=== PATIENT | male | born 1950 | race African-American/Black ===

== ENCOUNTER 2016-12-10 08:50 | Day surgery (SDC) | payer MEDICARE, OTHER ==
[2016-12-10 09:46] LABS: PARTIAL THROMBOPLASTIN TIME 29.7 SEC (23.5-35.8); PROTHROMBIN TIME 13.6 SEC (11.4-15.4)
[2016-12-10 09:48] LABS: HEMOGLOBIN 11.2 g/dL (13.5-17.0); HGB HCT DIFFERENCE 0.6; MEAN CORPUSCULAR HEMOGLOBIN 28.5 pg (27.0-33.4); MEAN CORPUSCULAR HGB CONC 33.8 g/dL (32.0-36.0); MEAN CORPUSCULAR VOLUME 84 fl (80-97); RED BLOOD COUNT 3.91 10^6/uL (4.35-5.55); RED CELL DISTRIBUTION WIDTH 16.2 % (11.5-14.0); WHITE BLOOD COUNT 13.5 10^3/uL (4.0-10.5)
[2016-12-10 09:51] LABS: ANION GAP 18 (5-19); CARBON DIOXIDE 26 mmol/L (22-30); CHLORIDE 100 mmol/L (98-107); GLUCOSE 139 mg/dL (75-110); SODIUM 144.2 mmol/L (137-145)
[2016-12-10 09:52] LABS: BLOOD UREA NITROGEN 45 mg/dL (7-20); CALCIUM 8.6 mg/dL (8.4-10.2); CREATININE RESULT 9.27 mg/dL (0.52-1.25)
[2016-12-10] MEDS ORDERED: OXYCODONE-ACETAMINOPHEN 5-325 MG TABLET ONE (10:03)
[2016-12-10] MEDS ORDERED: DIAZEPAM 5 MG TABLET ONE (10:04)
[2016-12-10 10:32] LABS: ANISOCYTOSIS 1+; BASOPHILS % (MANUAL) 0 % (0-2); EOSINOPHILS % (MANUAL) 0 % (0-6); HYPOCHROMASIA SLIGHT; LYMPHOCYTES % (MANUAL) 8 % (13-45); OVALOCYTES 1+; POIKILOCYTOSIS 1+; POLYCHROMASIA SLIGHT; TOTAL CELLS COUNTED 100
--- NOTE | 2016-12-10 10:48 | PDOC H&P ---
General Chief Complaint: The patient is admitted for intervention in his left forearm arteriovenous fistula, cephalic into radial. High KT/V has been noted also difficulty getting into the fistula as his tissues are very hard. The patient has noted that the fistula is softer than it usually is. - Current Medications/Allergies Home Medications: Amlodipine Besylate [Norvasc 10 mg Tablet] 5 mg PO DAILY 09/24/12 Aspirin [Aspirin 81 mg Chewable Tablet] 81 mg PO DAILY 09/24/12 Atorvastatin Calcium [Lipitor 10 mg Tablet] 10 mg PO Q48H 09/24/12 Cholecalciferol (Vitamin D3) [Vitamin D3] 5,000 unit PO DAILY 09/24/12 Esomeprazole Mag Trihydrate [Nexium] 40 mg PO DAILY 09/24/12 Ezetimibe [Zetia 10 mg Tablet] 10 mg PO DAILY 09/24/12 Lisinopril [Prinivil 5 mg Tablet] 2.5 mg PO DAILY 09/24/12 Metoprolol Tartrate [Lopressor 50 mg Tablet] 50 mg PO Q12H 09/24/12 Sitagliptin Phosphate [Januvia 50 mg Tablet] 25 mg PO DAILY 09/24/12 Cortisone Tape 1 dose TOP DAILY PRN 01/01/15 Desoximetasone [Topicort] 1 dose TOP ASDIR PRN 01/01/15 Methyl Salicylate/Menth/Camph [Salonpas Patch] 1 dose TOP ASDIR PRN 01/01/15 Simethicone [Demetria-[place]] 1 tab PO ASDIR PRN 01/01/15 Docusate Sodium [Colace] 100 mg PO DAILY 03/07/15 Furosemide [Lasix 40 mg Tablet] 40 mg PO BID 03/07/15 Calcium Acetate [Phoslo 667 mg Capsule] 3 tab PO MEALS 04/30/15 Diphenhydramine HCl [Benadryl 25 mg Capsule] 50 mg PO ASDIR PRN 11/12/15 Prednisone 20 mg PO ASDIR PRN 11/12/15 Pregabalin [Lyrica 50 mg Capsule] 50 mg PO 12/10/16 Allergies/Adverse Reactions: iodine [Iodine] Allergy (Severe, Verified 12/10/16 09:11) hives/skin hot niacin [Niacin] Allergy (Severe, Verified 12/10/16 09:11) flushed Penicillins Allergy (Severe, Verified 12/10/16 09:11) rash Ybpolnv-Fpb-Jpl Reductase Inhibitor Allergy (Severe, Verified 12/10/16 09:11) muscle pain,elevated enzymes contrast dye Allergy (Mild, Uncoded 12/10/16 09:11) Hives Past Medical History Cardiac Medical History: Reports: Coronary Artery Disease, Hypertension - tx since 1997 Denies: Myocardial Infarction Pulmonary Medical History: Denies: Asthma, Bronchitis, Chronic Obstructive Pulmonary Disease (COPD), Pneumonia Neurological Medical History: Reports: Seizures - when on dialysis pt states staff tells him has shaking Endocrine Medical History: Reports: Diabetes Mellitus Type 2 GI Medical History: Reports: Gastroesophageal Reflux Disease Musculoskeltal Medical History: Reports: Arthritis - RA ,psoriatic Hematology: Reports: Anemia Past Surgical History Past Surgical History: Reports: Cardiac Catheterization, Orthopedic Surgery - CARPAL TUNNEL, TRIGGER FINGER, Vascular Surgery - L LOWER ARM SHUNT Denies: Pacemaker Family History Family History: Reviewed & Not Pertinent Parental Family History Reviewed: No Children Family History Reviewed: No Sibling(s) Family History Reviewed.: No Social History Smoking Status: Never Smoker Hx Recreational Drug Use: No Hx Prescription Drug Abuse: No Physical Exam Vital Signs: Temp Pulse Resp BP Pulse Ox 98.3 F 72 16 154/87 H 98 12/10/16 09:30 12/10/16 09:30 12/10/16 09:30 12/10/16 09:30 12/10/16 09:30 Intake & Output 12/09/16 12/10/16 12/11/16 06:59 06:59 06:59 Weight 105.687 kg Additional comments: Constitutional: A well-developed well-nourished -[place] gentleman moderately increased body mass index. No acute distress. Eyes: Mucous membranes pink and moist, sclerae anicteric, pupils react normally. Respiratory: No shortness of breath or wheezing. Breath sounds are normal and equal. Cardiac: Heart sounds normal, no murmurs, no increased JVP. Peripheral edema. Extremities: Upper extremities shows normal range of movement and pulses. The left forearm has a transposed cephalic to radial fistula. Bruit normal. Soft to palpation. Psychiatric: judgment, memory, insight seem normal. Mood is normal, appropriate and pleasant. Impression/Plan Impression: #1 malfunctioning AV fistula, left cephalic to radial. #2 end-stage renal disease on hemodialysis. #3 coronary artery disease. #4 diabetes mellitus type II. #5 hypertension. Plan: In this patient with a sherrie left forearm fistula, intervention is indicated in order to optimize function. The goal is long-term use of this fistula. The procedure, its risks, benefits, expected outcome alternatives were discussed with the patient is and his . They're agreeable. The intervention is angiogram possible angioplasty possible PermCath insertion.
[2016-12-10] MEDS ORDERED: HEPARIN SOD (PORCINE) 5,000 UNIT/ML 1 ML SYRINGE ONE (10:55)
[2016-12-10] MEDS ORDERED: MIDAZOLAM 2 MG/2 ML INJ ONE (11:26)
[2016-12-10] MEDS ORDERED: FENTANYL CITRATE INJ/PF 100 MCG/2 ML AMPUL ONE (11:27)
--- NOTE | 2016-12-10 11:41 | Operative Report ---
Operative Report DATE OF SURGERY: 12/10/16 PREOPERATIVE DIAGNOSIS: #1 malfunctioning AV fistula, left cephalic to radial. #2 end-stage renal disease on hemodialysis. #3 coronary artery disease. #4 diabetes mellitus type II. #5 hypertension. POSTOPERATIVE DIAGNOSIS: #1 malfunctioning AV fistula, left cephalic to radial. #2 end-stage renal disease on hemodialysis. #3 coronary artery disease. #4 diabetes mellitus type II. #5 hypertension. OPERATION: #1 ultrasound guided needle access into fistula. #2 angioplasty in fistula. #3 angiogram and interpretation. SURGEON: DAYA BUCK 1ST VOLCANOLOGY TEACHER: none ANESTHESIA: Moderate Sedation TISSUE REMOVED OR ALTERED: Not applicable COMPLICATIONS: None ESTIMATED BLOOD LOSS: 5 mL. INTRAOPERATIVE FINDINGS: Of a well-founded left forearm transposed cephalic into radial fistula. Pulsatile in the first 4 cm with an intervening soft area aand then a dilated but soft target area. Clinically consistent with stenosis at about 4 cm from the anastomosis. The angiogram was consistent with this with an area of stenosis about 80% of the adjacent lumen. Corrected with perhaps a 5% residual stenosis. For a distance of about a centimeter. Hardcopy documentation preserved. PROCEDURE: PROCEDURE: After verifying the procedure and having obtained informed consent, the patient's left arm and forearm were prepared with Chlorhexidine and draped out with sterile linen. Local anesthesia infiltrated. Percutaneous access into the fistula ,[retrograde], obtained about [20 cm] from the arteriovenous anastomosis using a micro puncture needle followed by micro puncture wire and then a micro puncture catheter. This was done on ultrasound guidance using real-time access into the vein. Ultrasound was also used to size the vein. Angiogram demonstrated the aforementioned findings. Angioplasty was elected. A 0.035 [place] wire was inserted, and over this, a 6 [place] short introducer was placed, this was followed by a 6 mm angioplasty balloon . Angioplasty was now done over the culprit segment. This was done very carefully and in the up to 18 alvaro sustained for 2 minutes. Completion angiogram demonstrated [satisfactory result]. The instrumentation was now withdrawn over moderate pressure for 10 minutes. Dressings applied, procedure concluded. Exposure time: 0.2 minutes Radiation: 2 joseline per centimeter squared Contrast: 25 mL of Isovue-M 300 low osmolality. DICTATING PHYSICIAN: DAYA BUCK M.D. cc: DAYA BUCK M.D. ([id number]) >>
--- NOTE | 2016-12-10 11:44 | PDOC DISCHARGE SUMMARY ---
Discharge Summary (SDC) - Discharge Final Diagnosis: #1 malfunctioning AV fistula, left cephalic to radial. #2 end-stage renal disease on hemodialysis. #3 coronary artery disease. #4 diabetes mellitus type II. #5 hypertension. Date of Surgery: 12/10/16 Discharge Date: 12/10/16 Condition: Good Treatment or Instructions: #1 discharge patient home after achieving ASU criteria. #2 continue medications per medication reconciliation sheet. #3 follow-up in office by appointment in about 1 month, call for appointment. #4 dressing to be left on until removed in dialysis #5 continue scheduled hemodialysis. #6 may shower starting in 48 hours. Discharge Diet: As Tolerated Respiratory Treatments at Home: Deep Breathing/Coughing Discharge Activity: Activity As Tolerated Report the Following to Your Physician Immediately: Increased Soreness
[2016-12-10 12:55] VITALS: BP 139/81
--- NOTE | 2016-12-10 13:44 | EKG REPORT ---
SEVERITY:- NORMAL ECG - SINUS RHYTHM : Confirmed by: Lety Osman MD 10-Dec-2016 13:43:28
== END 2016-12-10 12:55 | disposition home or self-care (01) ==
LOC: CCL 08:50
PROVIDERS: ATTEND Surgery
PROC: 057F3DZ Dilation of Left Cephalic Vein with Intraluminal Device, Percutaneous Approach (ICD-10-PCS; principal; 2016-12-10)
DX: T82.858A Stenosis of other vascular prosthetic devices, implants and grafts, initial encounter (principal); Z79.01 Long term (current) use of anticoagulants; I12.0 Hypertensive chronic kidney disease with stage 5 chronic kidney disease or end stage renal disease; N18.6 End stage renal disease; I25.10 Atherosclerotic heart disease of native coronary artery without angina pectoris; Z99.2 Dependence on renal dialysis; Z79.82 Long term (current) use of aspirin; Z79.899 Other long term (current) drug therapy; Z88.0 Allergy status to penicillin; Z88.8 Allergy status to other drugs, medicaments and biological substances; Z91.041 Radiographic dye allergy status; E11.9 Type 2 diabetes mellitus without complications; G40.909 Epilepsy, unspecified, not intractable, without status epilepticus; K21.9 Gastro-esophageal reflux disease without esophagitis
CPT/HCPCS: 36415; 85025; 85610; 85730; 80048; 36902; 76937; 71010; 93005; 93010; C1725; C1752; C1894; Q9967; C1769; J2250; J1644; A9270 ×2; J3010; 36901

== ENCOUNTER 2017-01-05 09:49 | Day surgery (SDC) | payer MEDICARE, OTHER ==
[2017-01-05] MEDS ORDERED: OXYCODONE-ACETAMINOPHEN 5-325 MG TABLET PO PRN (10:20)
[2017-01-05] MEDS ORDERED: DIAZEPAM 5 MG TABLET PO PRN (10:21)
[2017-01-05 10:35] LABS: HEMATOCRIT 31.6 % (37.9-51.0); HEMOGLOBIN 10.3 g/dL (13.5-17.0); HGB HCT DIFFERENCE -0.7; MEAN CORPUSCULAR HEMOGLOBIN 28.7 pg (27.0-33.4); MEAN CORPUSCULAR HGB CONC 32.7 g/dL (32.0-36.0); MEAN CORPUSCULAR VOLUME 88 fl (80-97); RED BLOOD COUNT 3.59 10^6/uL (4.35-5.55); RED CELL DISTRIBUTION WIDTH 16.3 % (11.5-14.0); WHITE BLOOD COUNT 13.5 10^3/uL (4.0-10.5)
[2017-01-05 10:37] LABS: PROTHROMBIN TIME 14.2 SEC (11.4-15.4)
[2017-01-05] MEDS ORDERED: LIDOCAINE 0.5% INJ-PF (5 MG/ML) 50 ML SDV ONE (10:47)
[2017-01-05 10:51] LABS: ANION GAP 16 (5-19); BLOOD UREA NITROGEN 63 mg/dL (7-20); CALCIUM 8.5 mg/dL (8.4-10.2); CARBON DIOXIDE 25 mmol/L (22-30); CHLORIDE 101 mmol/L (98-107); GLUCOSE 128 mg/dL (75-110); POTASSIUM 5.2 mmol/L (3.6-5.0); SODIUM 142.2 mmol/L (137-145)
[2017-01-05 10:58] LABS: BASOPHILS % (MANUAL) 0 % (0-2); EOSINOPHILS % (MANUAL) 0 % (0-6); LYMPHOCYTES % (MANUAL) 4 % (13-45); TOTAL CELLS COUNTED 100
[2017-01-05 11:02] LABS: ANISOCYTOSIS 1+; OVALOCYTES SLIGHT; POIKILOCYTOSIS SLIGHT; POLYCHROMASIA SLIGHT
[2017-01-05] MEDS ORDERED: HEPARIN SOD (PORCINE) 5,000 UNIT/ML 1 ML SYRINGE ONE (11:45)
[2017-01-05] MEDS ORDERED: MIDAZOLAM 2 MG/2 ML INJ ONE (11:45)
[2017-01-05] MEDS ORDERED: FENTANYL CITRATE INJ/PF 100 MCG/2 ML AMPUL ONE (11:45)
--- NOTE | 2017-01-05 13:42 | PDOC DISCHARGE SUMMARY ---
Discharge Summary (SDC) - Discharge Final Diagnosis: #1 malfunctioning AV fistula left radiocephalic. #2 end-stage renal disease on hemodialysis. #3 hypertension. #4 diabetes mellitus. Date of Surgery: 01/05/17 Discharge Date: 01/05/17 Forms: Sedation D/C Instructions, Discharge POC-Surgical Service Treatment or Instructions: Return to physician as directed by MD. #1 activities within moderation encouraged. #2 follow up in my office by appointment in about 1 week. Call for appointment. #3 the wounds covered clean and dry until office visit. #4 hold off on school/work until evaluation in office. #5 may shower in 48 hours, keep operated area as dry as possible. #6 discharge from ambulatory when ASU criteria met. #7 medications per medication reconciliation sheet. #8 Also may have one Percocet up to every 2 hours when necessary for pain greater than 4 out of 10 while in the ASU Referrals: DAYA BUCK MD [ACTIVE STAFF] - 01/14/17 1:00 pm Respiratory Treatments at Home: Deep Breathing/Coughing Discharge Activity: Activity As Tolerated Home Care Assistance: None Needed Report the Following to Your Physician Immediately: Shortness of Breath, Nausea , Vomiting, Fever over 101 Degrees, Unusual Bleeding, Redness, Swelling, Warmth
[2017-01-05 14:17] VITALS: BP 145/84
--- NOTE | 2017-01-05 18:56 | PDOC H&P ---
General Chief Complaint: This patient with a well founded left forearm radiocephalic fistula is referred across because of decreased flow rates. Intervention is recommended. The objective is to prolonged use of this fistula. - Current Medications/Allergies Home Medications: Amlodipine Besylate [Norvasc 10 mg Tablet] 5 mg PO DAILY 09/24/12 Aspirin [Aspirin 81 mg Chewable Tablet] 81 mg PO DAILY 09/24/12 Atorvastatin Calcium [Lipitor 10 mg Tablet] 10 mg PO Q48H 09/24/12 Cholecalciferol (Vitamin D3) [Vitamin D3] 5,000 unit PO DAILY 09/24/12 Esomeprazole Mag Trihydrate [Nexium] 40 mg PO DAILY 09/24/12 Ezetimibe [Zetia 10 mg Tablet] 10 mg PO DAILY 09/24/12 Lisinopril [Prinivil 5 mg Tablet] 2.5 mg PO DAILY 09/24/12 Metoprolol Tartrate [Lopressor 50 mg Tablet] 50 mg PO Q12H 09/24/12 Sitagliptin Phosphate [Januvia 50 mg Tablet] 25 mg PO DAILY 09/24/12 Cortisone Tape 1 dose TOP DAILY PRN 01/01/15 Desoximetasone [Topicort] 1 dose TOP ASDIR PRN 01/01/15 Methyl Salicylate/Menth/Camph [Salonpas Patch] 1 dose TOP ASDIR PRN 01/01/15 Simethicone [Demetria-[place]] 1 tab PO ASDIR PRN 01/01/15 Docusate Sodium [Colace] 100 mg PO DAILY 03/07/15 Furosemide [Lasix 40 mg Tablet] 40 mg PO BID 03/07/15 Calcium Acetate [Phoslo 667 mg Capsule] 3 tab PO MEALS 04/30/15 Diphenhydramine HCl [Benadryl 25 mg Capsule] 50 mg PO ASDIR PRN 11/12/15 Prednisone 20 mg PO ASDIR PRN 11/12/15 Pregabalin [Lyrica 50 mg Capsule] 50 mg PO 12/10/16 Allergies/Adverse Reactions: iodine [Iodine] Allergy (Severe, Verified 12/10/16 09:11) hives/skin hot niacin [Niacin] Allergy (Severe, Verified 12/10/16 09:11) flushed Penicillins Allergy (Severe, Verified 12/10/16 09:11) rash Lmgngch-Fev-Kqe Reductase Inhibitor Allergy (Severe, Verified 12/10/16 09:11) muscle pain,elevated enzymes contrast dye Allergy (Mild, Uncoded 12/10/16 09:11) Hives Past Medical History Cardiac Medical History: Reports: Coronary Artery Disease, Hypertension - tx since 1997 Denies: Myocardial Infarction Pulmonary Medical History: Denies: Asthma, Bronchitis, Chronic Obstructive Pulmonary Disease (COPD), Pneumonia Neurological Medical History: Reports: Seizures - when on dialysis pt states staff tells him has shaking Endocrine Medical History: Reports: Diabetes Mellitus Type 2 GI Medical History: Reports: Gastroesophageal Reflux Disease Musculoskeltal Medical History: Reports: Arthritis - RA ,psoriatic Hematology: Reports: Anemia Past Surgical History Past Surgical History: Reports: Cardiac Catheterization, Orthopedic Surgery - CARPAL TUNNEL, TRIGGER FINGER, Vascular Surgery - L LOWER ARM SHUNT Denies: Pacemaker Family History Family History: Reviewed & Not Pertinent Parental Family History Reviewed: No Children Family History Reviewed: No Sibling(s) Family History Reviewed.: No Social History Smoking Status: Never Smoker Hx Recreational Drug Use: No Hx Prescription Drug Abuse: No Physical Exam Vital Signs: Temp Pulse Resp BP Pulse Ox 98.2 F 62 18 145/84 H 100 01/05/17 14:15 01/05/17 14:15 01/05/17 14:15 01/05/17 14:15 01/05/17 14:15 Intake & Output 01/04/17 01/05/17 01/06/17 06:59 06:59 06:59 Weight 105 kg Additional comments: A well-developed well-nourished -[place] male. Mildly increased body habitus. No acute distress. Eyes membranes is pink and moist, sclerae anicteric. Respiratory no shortness of breath. Breath sounds are normal and equal bilaterally. Cardiac: Heart sounds 1 and 2 heard, no murmurs. Upper extremities show normal range of movement and pulsatile to the radials. Normal capillary refill. A cephalic to radial fistula is appreciated. In the left upper extremity. Somewhat soft, suggesting inflow stenosis. Psychiatric the patient is alert, oriented, judgment, memory, insight normal Impression/Plan Impression: #1 malfunctioning AV fistula, left radiocephalic. #2 end-stage renal disease on hemodialysis. #3 diabetes mellitus type II. #4 hypertension. Plan: In this patient prolongation of the useful fistula life seems to indicate the need for intervention and possible angioplasty. The procedure, its risks, benefits, expected outcome R Gavino to the patient.
--- NOTE | 2017-01-12 13:25 | Operative Report ---
Operative Report DATE OF SURGERY: 01/05/17 PREOPERATIVE DIAGNOSIS: #1 malfunctioning AV fistula left radiocephalic. #2 end -stage renal disease on hemodialysis. #3 hypertension. #4 diabetes mellitus. POSTOPERATIVE DIAGNOSIS: #1 malfunctioning AV fistula left radiocephalic. #2 end-stage renal disease on hemodialysis. #3 hypertension. #4 diabetes mellitus. OPERATION: #1 ultrasound guided evaluation of arteriovenous fistula. #2 real- time needle access in arteriovenous fistula. #3 angioplasty in fistula. #4 angiogram and interpretation. SURGEON: DAYA MENDES REGULATOR PIN INSERTER: none ANESTHESIA: Moderate Sedation TISSUE REMOVED OR ALTERED: none. COMPLICATIONS: A well-founded left radiocephalic fistula. A portion between about 5 and 10 cm relatively difficult to palpate, proximally hyper pulsatile. This correlates with the finding on angiogram which demonstrates an approximately 2-1/2 cm area of stenosis about 40% of the adjacent lumen and representing a critical stenosis. This area proved quite challenging to dilate and exhibited some rebound. Particularly a very narrow segment at 5 cm. After quite aggressive angioplasty the radiographic appearance was much improved. Also the pulsatility in the main fistula was improved suggesting increased serial flow and head of pressure. ESTIMATED BLOOD LOSS: 5 mL. INTRAOPERATIVE FINDINGS: A well-founded left radiocephalic fistula. A portion between about 5 and 10 cm relatively difficult to palpate, proximally hyper pulsatile. This correlates with the finding on angiogram which demonstrates an approximately 2-1/2 cm area of stenosis about 40% of the adjacent lumen and representing a critical stenosis. This area proved quite challenging to dilate and exhibited some rebound. Particularly a very narrow segment at 5 cm. After quite aggressive angioplasty the radiographic appearance was much improved. Also the pulsatility in the main fistula was improved suggesting increased flow and head of pressure. PROCEDURE: PROCEDURE: After verifying the procedure and having obtained informed consent, the patient's left arm and forearm were prepared with Chlorhexidine and draped out with sterile linen. Local anesthesia infiltrated. Percutaneous access into the fistula ,[retrograde], obtained about [20 cm] from the arteriovenous anastomosis using a micro puncture needle followed by micro puncture wire and then a micro puncture catheter. This was done on ultrasound guidance using real-time access into the vein. Ultrasound was also used to size the vein. Angiogram demonstrated the aforementioned findings. Angioplasty was elected. A 0.035 [place] wire was inserted, and over this, a 6 [place] short introducer was placed, this was followed by a 5 mm angioplasty balloon . Angioplasty was now done at the distal perianastomotic segment. This was done very carefully and in the up to 60 alvaro sustained for 2 minutes. Angiogram demonstrated successful outcome. Completion angiogram demonstrated [satisfactory result]. The instrumentation was now withdrawn over pressure for 10 minutes. Dressings applied, procedure concluded. DICTATING PHYSICIAN: DAYA BUCK M.D. cc: DAYA BUCK M.D. ([id number]) >>
== END 2017-01-05 14:15 | disposition home or self-care (01) ==
LOC: CCL 09:49
PROVIDERS: ATTEND Surgery
PROC: 057F3DZ Dilation of Left Cephalic Vein with Intraluminal Device, Percutaneous Approach (ICD-10-PCS; principal; 2017-01-05)
DX: T82.858A Stenosis of other vascular prosthetic devices, implants and grafts, initial encounter (principal); Y83.2 Surgical operation with anastomosis, bypass or graft as the cause of abnormal reaction of the patient, or of later complication, without mention of misadventure at the time of the procedure; I12.0 Hypertensive chronic kidney disease with stage 5 chronic kidney disease or end stage renal disease; E11.22 Type 2 diabetes mellitus with diabetic chronic kidney disease; N18.6 End stage renal disease; Z99.2 Dependence on renal dialysis; I25.10 Atherosclerotic heart disease of native coronary artery without angina pectoris; G40.909 Epilepsy, unspecified, not intractable, without status epilepticus; D64.9 Anemia, unspecified; M06.9 Rheumatoid arthritis, unspecified; L40.50 Arthropathic psoriasis, unspecified; K21.9 Gastro-esophageal reflux disease without esophagitis; Z79.82 Long term (current) use of aspirin; Z79.899 Other long term (current) drug therapy; Z88.0 Allergy status to penicillin; Z91.041 Radiographic dye allergy status; Z88.8 Allergy status to other drugs, medicaments and biological substances; Z79.01 Long term (current) use of anticoagulants; Z98.61 Coronary angioplasty status
CPT/HCPCS: 36415; 85025; 85610; 85730; 80048; 36902; 76937; C1725 ×2; C1887; C1769; J2250; J1644 ×2; A9270 ×2; J3010; J3490

== ENCOUNTER 2017-04-15 09:18 | Day surgery (SDC) | payer MEDICARE, OTHER ==
[2017-04-15] MEDS ORDERED: OXYCODONE-ACETAMINOPHEN 5-325 MG TABLET ONE (10:34)
[2017-04-15] MEDS ORDERED: DIAZEPAM 5 MG TABLET ONE (10:34)
[2017-04-15] MEDS ORDERED: LIDOCAINE 0.5% INJ-PF (5 MG/ML) 50 ML SDV ONE (11:05)
[2017-04-15] MEDS ORDERED: FENTANYL CITRATE INJ/PF 100 MCG/2 ML AMPUL ONE (11:05)
[2017-04-15] MEDS ORDERED: MIDAZOLAM 2 MG/2 ML INJ ONE (11:05)
[2017-04-15] MEDS ORDERED: HEPARIN SOD (PORCINE) 5,000 UNIT/ML 1 ML SYRINGE ONE (11:06)
[2017-04-16 12:02] LABS: HEMATOCRIT 36.8 % (37.9-51.0); HEMOGLOBIN 12.2 g/dL (13.5-17.0); HGB HCT DIFFERENCE -0.2; MEAN CORPUSCULAR HEMOGLOBIN 29.1 pg (27.0-33.4); MEAN CORPUSCULAR HGB CONC 33.2 g/dL (32.0-36.0); MEAN CORPUSCULAR VOLUME 88 fl (80-97); RED CELL DISTRIBUTION WIDTH 15.3 % (11.5-14.0); WHITE BLOOD COUNT 10.7 10^3/uL (4.0-10.5)
--- NOTE | 2017-04-16 17:37 | Operative Report ---
Operative Report DATE OF SURGERY: 04/15/17 PREOPERATIVE DIAGNOSIS: Malfunctioning av fistula. Renal disease on hemodialysis. 3. Hypertension. POSTOPERATIVE DIAGNOSIS: S/A post angioplasty. OPERATION: 1. Needle access to arteriovenous fistula. 2. arteriovenous fistula angioplasty. 3. Angiogram interpretation. SURGEON: DAYA MENDES CERTIFIED PEDIATRIC NURSE PRACTITIONER: Gamal ANESTHESIA: Moderate Sedation TISSUE REMOVED OR ALTERED: Applicable not COMPLICATIONS: None ESTIMATED BLOOD LOSS: 5 mL. INTRAOPERATIVE FINDINGS: Of a stenosis about 6 cm from the arteriovenous anastomosis representing 90% of the adjacent lumen. Corrected with no more than 5% residual stenosis. With some difficulty. Quite aggressive pressure had to be applied. The inflow is really wonderful the radial artery estimated to be about 5 mm and the anastomosis of the 6 mm. Postangioplasty of the previously soft fistula was firmer, appropriately. An additional finding is of a possible very short segment stenosis just below the elbow. This may need to be addressed at another sitting. PROCEDURE: PROCEDURE: After verifying the procedure and having obtained informed consent, the patient's left arm and forearm were prepared with Chlorhexidine and draped out with sterile linen. Local anesthesia infiltrated. Percutaneous access into the fistula ,[retrograde], obtained about [20 cm] from the arteriovenous anastomosis using a micro puncture needle followed by micro puncture wire and then a micro puncture catheter. Angioplasty was elected. A 0.035 [place] wire was inserted, and over this, a 6 [place]ian short introducer was placed, this was followed by a 5 millimeter angioplasty balloon . Angioplasty was now done at the affected segment . This was done using a 3 mL syringe and hand injection. 40 minutes at the time. This improved the fistula however there was considerable stenosis remaining.. Angiogram demonstrated successful outcome. The balloon was now swapped over the wire for a 6 mm angioplasty balloon. Angioplasty was The affected segment inflating using an insufflator up to 24 alvaro for a minute at a time.]. Completion angiogram demonstrated [satisfactory result]. The instrumentation was now withdrawn over pressure for 10 minute . Dressings applied, procedure concluded. DICTATING PHYSICIAN: DAYA BUCK M.D. cc: DAYA BUCK M.D. ([id number]) >>
[2017-04-18 19:46] LABS: BLOOD UREA NITROGEN 48 mg/dL (7-20); CALCIUM 8.8 mg/dL (8.4-10.2); CREATININE RESULT 10.49 mg/dL (0.52-1.25); GLUCOSE 146 mg/dL (75-110)
[2017-04-18 19:47] LABS: ANION GAP 19 (5-19); CARBON DIOXIDE 24 mmol/L (22-30); CHLORIDE 98 mmol/L (98-107); POTASSIUM 5.3 mmol/L (3.6-5.0); SODIUM 140.7 mmol/L (137-145)
== END 2017-04-15 13:48 | disposition home or self-care (01) ==
LOC: CCL 09:18
PROVIDERS: ATTEND Surgery
PROC: 057Y3DZ Dilation of Upper Vein with Intraluminal Device, Percutaneous Approach (ICD-10-PCS; principal; 2017-04-15)
DX: T82.858A Stenosis of other vascular prosthetic devices, implants and grafts, initial encounter (principal); Y83.2 Surgical operation with anastomosis, bypass or graft as the cause of abnormal reaction of the patient, or of later complication, without mention of misadventure at the time of the procedure; E11.22 Type 2 diabetes mellitus with diabetic chronic kidney disease; I12.0 Hypertensive chronic kidney disease with stage 5 chronic kidney disease or end stage renal disease; N18.6 End stage renal disease; Z99.2 Dependence on renal dialysis; K21.9 Gastro-esophageal reflux disease without esophagitis; M19.90 Unspecified osteoarthritis, unspecified site; Z88.0 Allergy status to penicillin; Z88.8 Allergy status to other drugs, medicaments and biological substances
CPT/HCPCS: 36415; 85027; 80048; 36902; C1725 ×2; C1752; C1887; Q9967; C1769; J2250; J1644 ×2; A9270 ×2; J3010; J3490

== ENCOUNTER 2017-08-24 06:21 | Day surgery (SDC) | payer MEDICARE, OTHER ==
[2017-08-24] MEDS ORDERED: HEPARIN SOD (PORCINE) 5,000 UNIT/ML 1 ML SYRINGE ONE (06:48)
[2017-08-24] MEDS ORDERED: LIDOCAINE 0.5% INJ-PF (5 MG/ML) 50 ML SDV ONE (06:48)
[2017-08-24] MEDS ORDERED: MIDAZOLAM 2 MG/2 ML INJ ONE (06:48)
[2017-08-24] MEDS ORDERED: FENTANYL CITRATE INJ/PF 100 MCG/2 ML AMPUL ONE (06:48)
[2017-08-24] MEDS ORDERED: DIAZEPAM 5 MG TABLET ONE (07:07)
[2017-08-24] MEDS ORDERED: OXYCODONE-ACETAMINOPHEN 5-325 MG TABLET ONE (07:07)
--- NOTE | 2017-08-24 07:11 | PDOC H&P ---
General Chief Complaint: The patient is admitted for angioplasty and an angiogram of the forearm fistula. - Diagnosis (1) Dialysis AV fistula malfunction Is this a Current Diagnosis?: Yes (2) ESRD needing dialysis Is this a Current Diagnosis?: Yes (4) Hypertension Is this a Current Diagnosis?: Yes - Current Medications/Allergies Home Medications: Aspirin [Aspirin 81 mg Chewable Tablet] 81 mg PO DAILY 09/24/12 Cholecalciferol (Vitamin D3) [Vitamin D3] 5,000 unit PO DAILY 09/24/12 Esomeprazole Mag Trihydrate [Nexium] 40 mg PO DAILY 09/24/12 Lisinopril [Prinivil 5 mg Tablet] 2.5 mg PO DAILY 09/24/12 Metoprolol Tartrate [Lopressor 50 mg Tablet] 50 mg PO Q12H 09/24/12 Sitagliptin Phosphate [Januvia 50 mg Tablet] 25 mg PO DAILY 09/24/12 Desoximetasone [Topicort] 1 dose TOP ASDIR PRN 01/01/15 Simethicone [Demetria-[place]] 1 tab PO ASDIR PRN 01/01/15 Docusate Sodium [Colace] 100 mg PO DAILY 03/07/15 Furosemide [Lasix 40 mg Tablet] 40 mg PO BID 03/07/15 Calcium Acetate [Phoslo 667 mg Capsule] 3 tab PO MEALS 04/30/15 Diphenhydramine HCl [Benadryl 25 mg Capsule] 50 mg PO ASDIR PRN 11/12/15 Prednisone 20 mg PO ASDIR PRN 11/12/15 Pregabalin [Lyrica 50 mg Capsule] 50 mg PO DAILY 12/10/16 Famotidine [Pepcid 20 mg Tablet] 20 mg PO ASDIR PRN 08/24/17 Allergies/Adverse Reactions: iodine [Iodine] Allergy (Severe, Verified 08/24/17 06:51) hives/skin hot niacin [Niacin] Allergy (Severe, Verified 08/24/17 06:51) flushed Penicillins Allergy (Severe, Verified 08/24/17 06:51) rash Vlclcui-Muu-Ate Reductase Inhibitor Allergy (Severe, Verified 08/24/17 06:51) muscle pain,elevated enzymes contrast dye Allergy (Mild, Uncoded 08/24/17 06:51) Hives Past Medical History Cardiac Medical History: Reports: Coronary Artery Disease, Hypertension - tx since 1997 Denies: Myocardial Infarction Pulmonary Medical History: Denies: Asthma, Bronchitis, Chronic Obstructive Pulmonary Disease (COPD), Pneumonia Neurological Medical History: Reports: Seizures - when on dialysis pt states staff tells him has shaking Endocrine Medical History: Reports: Diabetes Mellitus Type 2 GI Medical History: Reports: Gastroesophageal Reflux Disease Musculoskeltal Medical History: Reports: Arthritis - RA ,psoriatic Hematology: Reports: Anemia Past Surgical History Past Surgical History: Reports: Cardiac Catheterization, Orthopedic Surgery - CARPAL TUNNEL, TRIGGER FINGER, Vascular Surgery - L LOWER ARM SHUNT Denies: Pacemaker Family History Family History: Reviewed & Not Pertinent Parental Family History Reviewed: No Children Family History Reviewed: No Sibling(s) Family History Reviewed.: No Social History Smoking Status: Never Smoker Hx Recreational Drug Use: No Hx Prescription Drug Abuse: No Physical Exam Vital Signs: Temp Pulse Resp BP Pulse Ox 98.5 F 74 20 200/99 H 08/24/17 06:37 08/24/17 06:37 08/24/17 06:37 08/24/17 06:37 Additional comments: Constitutional: Well-developed well-nourished -[place]an gentleman. No apparent acute distress. Eyes: Mucous membranes pink and moist, pupils equal and reactive to light. Conjunctiva normal. Cornea normal. Wears spectacles. ENT: Hearing grossly normal. External pinna normal to inspection. Teeth intact. Tongue normal to inspection. Cardiac: Heart sounds 1 and 2 normal, no murmurs. Respiratory breath sounds are present bilaterally, normal. Normal respiratory effort. Skin: Psoriatic rash noted on left forearm. Psychiatric: Judgment, memory, insight seem normal. Mood is pleasant and appropriate. Extremities: Upper extremities show normal range of movement. Pulses present noted to the radial arteries. Capillary refill normal. No cyanosis noted. No muscle wasting noted. Left forearm AV fistula. Somewhat firm initially suggesting recurrence of mid fistula stenosis. Impression/Plan Impression: Dialysis has noted decreased flow. Based on examination and this diagnosis I suspect. A stenosis about 4 cm from the anastomosis. We will do angiogram possible angioplasty. Consider using a drug-eluting balloon in this patient with has recurrent stenosis at the same spot. The procedure, its risks, benefits, expected outcome and alternatives are familiar to the patient and he wishes to proceed.
--- NOTE | 2017-08-24 08:28 | PDOC DISCHARGE SUMMARY ---
Discharge Summary (SDC) - Discharge Final Diagnosis: #1 malfunctioning arteriovenous fistula, left radiocephalic. 2. End-stage renal disease on hemodialysis. 3. Coronary artery disease. 4. Hypertension. Date of Surgery: 08/24/17 Discharge Date: 08/24/17 Condition: Fair Treatment or Instructions: Discharge home [after recovery per ASU criteria]. Diet , [renal],as tolerated, when fully awake advance as tolerated. Activities within moderation encouraged. Follow up in my office by appointment in about 2 months hemodialysis. Call for appointment. Leave wounds [covered], [keep clean and dry, until hemodialysis]. Hold of on school/work [until evaluation in office]. May shower [in 48 hrs], [try to keep operated area as dry as possible]. Referrals: LOCALMD,NO [Primary Care Provider] - Discharge Diet: Other (Comments) - Renal Respiratory Treatments at Home: Deep Breathing/Coughing Discharge Activity: Activity As Tolerated Report the Following to Your Physician Immediately: Shortness of Breath, Unusual Bleeding
--- NOTE | 2017-08-24 08:36 | Operative Report ---
Operative Report DATE OF SURGERY: 08/24/17 PREOPERATIVE DIAGNOSIS: #1 malfunctioning arteriovenous fistula, left radiocephalic. 2. End-stage renal disease on hemodialysis. 3. Coronary artery disease. 4. Hypertension. POSTOPERATIVE DIAGNOSIS: #1 malfunctioning arteriovenous fistula, left radiocephalic. Post angioplasty. 2. End-stage renal disease on hemodialysis. 3. Coronary artery disease. 4. Hypertension. OPERATION: 1. Needle introduction of the fistula. 2. Angioplasty mid fistula. 3. Angiogram and interpretation. SURGEON: DAYA MENDES TIME STUDY TECHNOLOGIST: None ANESTHESIA: Moderate Sedation TISSUE REMOVED OR ALTERED: Not applicable. COMPLICATIONS: None. ESTIMATED BLOOD LOSS: 5 mL. INTRAOPERATIVE FINDINGS: Of a well founded left forearm radiocephalic fistula. On examination somewhat hyper pulsatile in the first few centimeters. Less so cephalad. This correlated with the finding of a adenosis about 80% of the adjacent lumen noted about 6 cm away from the anastomosis in about a centimeter and a half in length. The inflow is extremely robust with a radial artery easily 6 mm in diameter. Cephalad they are minus stenoses less than 5% of the adjacent lumen cephalad to the frequently accessed area. This area of stenosis was resolved with minimal residual stenosis. It is recurrent and I believe will benefit from use of a drug-eluting balloon angioplasty for in its next reappearance. This was discussed with the patient's . The hope is to increase the intervals between intervention. PROCEDURE: PROCEDURE: After verifying the procedure and having obtained informed consent, the patient's left arm and forearm were prepared with Chlorhexidine and draped out with sterile linen. Local anesthesia infiltrated. Percutaneous access into the fistula ,[retrograde], obtained about [20 cm] from the arteriovenous anastomosis using a micro puncture needle followed by micro puncture wire and then a micro puncture catheter. Angiogram demonstrated the aforementioned findings. Angioplasty was elected. A 0.035 [place] wire was inserted, and over this, a 6 [place] short introducer was placed, this was followed by a 6 angioplasty balloon . Angioplasty was now done at the d perianastomotic segment , both 6 cm from the anastomosis. Angioplasty was done with a 3 mils syringe r. Inflating for 2 minutes at a time.]. Completion angiogram demonstrated [satisfactory result]. The instrumentation was now withdrawn over hand-held pressure for 10 minutes. Dressings applied, procedure concluded. Exposure time: 2.9 minutes Radiation: 2.9 joseline per centimeter squared Contrast: 25 mL of Isovue-M 300 low osmolality. DICTATING PHYSICIAN: DAYA BUCK M.D. cc: DAYA BUCK M.D. ([id number]) >>
[2017-08-24 09:34] VITALS: BP 133/79
--- NOTE | 2017-08-24 16:24 | RADIOLOGY REPORT (SQ) ---
EXAM DESCRIPTION: FISTULAGRAM W/PLASTY COMPLETED DATE/TIME: 08/24/2017 2:09 pm REASON FOR STUDY: T82.858A T82.858A STENOSIS OF OTHER VASCULAR PROSTH DEV/GRFT, INIT N18.6 END STA GE RENAL DISEASE COMPARISON: 04/15/2017, 01/05/2017 FLUOROSCOPY TIME: 2.9 minutes Multiple cine images saved to PACS. TECHNIQUE: Intra-operative images acquired during surgical procedure to evaluate progress. NUMBER OF IMAGES: Cine fluoroscopic images. LIMITATIONS: None. FINDINGS: Imaging in fluoroscopy during upper extremity dialysis access evaluation and plasty by Dr. Perea . Please refer to the operative report for further details. IMPRESSION: INTRA PROCEDURAL IMAGING ABOVE . COMMENT: Quality ID [id number]: Final reports for procedures using fluoroscopy that document radiation exp osure indices, or exposure time and number of fluorographic images (if radiation exposure indices are not available) Please consult full operative report of the attending physician for description of the procedure. TECHNICAL DOCUMENTATION: JOB ID: [id number] [employer]- All Rights Reserved
== END 2017-08-24 09:20 | disposition home or self-care (01) ==
LOC: SC 06:21
PROVIDERS: ATTEND Surgery
PROC: 057F3DZ Dilation of Left Cephalic Vein with Intraluminal Device, Percutaneous Approach (ICD-10-PCS; principal; 2017-08-24)
DX: T82.858A Stenosis of other vascular prosthetic devices, implants and grafts, initial encounter (principal); Y83.2 Surgical operation with anastomosis, bypass or graft as the cause of abnormal reaction of the patient, or of later complication, without mention of misadventure at the time of the procedure; I12.0 Hypertensive chronic kidney disease with stage 5 chronic kidney disease or end stage renal disease; E11.22 Type 2 diabetes mellitus with diabetic chronic kidney disease; N18.6 End stage renal disease; Z99.2 Dependence on renal dialysis; I25.10 Atherosclerotic heart disease of native coronary artery without angina pectoris; Z79.82 Long term (current) use of aspirin; Z79.899 Other long term (current) drug therapy; Z88.0 Allergy status to penicillin; Z88.8 Allergy status to other drugs, medicaments and biological substances; M06.9 Rheumatoid arthritis, unspecified; D64.9 Anemia, unspecified; K21.9 Gastro-esophageal reflux disease without esophagitis
CPT/HCPCS: 36902; C1887; C1725; Q9967; C1769; J2250; J1644 ×2; A9270 ×2; J3010; J3490

== ENCOUNTER 2017-11-02 08:56 | Day surgery (SDC) | payer MEDICARE, OTHER ==
[~2017-11-02 08:56] MED LIST: DIAZEPAM 5 MG TABLET PO PRN; OXYCODONE-ACETAMINOPHEN 5-325 MG TABLET PO PRN
[2017-11-02 09:50] LABS: HEMATOCRIT 30.9 % (37.9-51.0); HEMOGLOBIN 10.5 g/dL (13.5-17.0); HGB HCT DIFFERENCE 0.6; MEAN CORPUSCULAR HEMOGLOBIN 29.1 pg (27.0-33.4); MEAN CORPUSCULAR VOLUME 86 fl (80-97); RED BLOOD COUNT 3.61 10^6/uL (4.35-5.55); RED CELL DISTRIBUTION WIDTH 14.6 % (11.5-14.0); WHITE BLOOD COUNT 13.8 10^3/uL (4.0-10.5)
[2017-11-02 10:01] LABS: BLOOD UREA NITROGEN 57 mg/dL (7-20); CALCIUM 9.3 mg/dL (8.4-10.2); CHLORIDE 100 mmol/L (98-107); CREATININE RESULT 11.58 mg/dL (0.52-1.25); GLUCOSE 135 mg/dL (75-110); POTASSIUM 4.9 mmol/L (3.6-5.0)
[2017-11-02 10:09] LABS: CARBON DIOXIDE 22 mmol/L (22-30); SODIUM 143.2 mmol/L (137-145)
[2017-11-02 10:13] LABS: ANION GAP 21 (5-19)
[2017-11-02] MEDS ORDERED: HEPARIN SOD (PORCINE) 5,000 UNIT/ML 1 ML SYRINGE ONE (11:14)
[2017-11-02] MEDS ORDERED: FENTANYL CITRATE INJ/PF 100 MCG/2 ML AMPUL ONE (11:14)
[2017-11-02] MEDS ORDERED: LIDOCAINE 0.5% INJ-PF (5 MG/ML) 50 ML SDV ONE (11:14)
[2017-11-02] MEDS ORDERED: MIDAZOLAM 2 MG/2 ML INJ ONE (11:14)
--- NOTE | 2017-11-02 11:19 | PDOC H&P ---
General Chief Complaint: The patient is referred across from dialysis because of fistula malfunction discovered on KT over V. - Diagnosis (3) Dialysis AV fistula malfunction Is this a Current Diagnosis?: Yes - Current Medications/Allergies Home Medications: Aspirin [Aspirin 81 mg Chewable Tablet] 81 mg PO DAILY 09/24/12 Cholecalciferol (Vitamin D3) [Vitamin D3] 5,000 unit PO DAILY 09/24/12 Esomeprazole Mag Trihydrate [Nexium] 40 mg PO DAILY 09/24/12 Lisinopril [Prinivil 5 mg Tablet] 2.5 mg PO DAILY 09/24/12 Metoprolol Tartrate [Lopressor 50 mg Tablet] 50 mg PO Q12H 09/24/12 Desoximetasone [Topicort] 1 dose TOP ASDIR PRN 01/01/15 Simethicone [Demetria-[place]] 1 tab PO ASDIR PRN 01/01/15 Furosemide [Lasix 40 mg Tablet] 40 mg PO BID 03/07/15 Calcium Acetate [Phoslo 667 mg Capsule] 3 tab PO MEALS 04/30/15 Pregabalin [Lyrica 50 mg Capsule] 50 mg PO DAILY 12/10/16 Allergies/Adverse Reactions: iodine [Iodine] Allergy (Severe, Verified 08/24/17 06:51) hives/skin hot niacin [Niacin] Allergy (Severe, Verified 08/24/17 06:51) flushed Penicillins Allergy (Severe, Verified 08/24/17 06:51) rash Reqpxpp-Eti-Khc Reductase Inhibitor Allergy (Severe, Verified 08/24/17 06:51) muscle pain,elevated enzymes contrast dye Allergy (Mild, Uncoded 08/24/17 06:51) Hives Past Medical History Cardiac Medical History: Reports: Coronary Artery Disease, Hypertension - tx since 1997 Denies: Myocardial Infarction Pulmonary Medical History: Denies: Asthma, Bronchitis, Chronic Obstructive Pulmonary Disease (COPD), Pneumonia Neurological Medical History: Reports: Seizures - when on dialysis pt states staff tells him has shaking Endocrine Medical History: Reports: Diabetes Mellitus Type 2 GI Medical History: Reports: Gastroesophageal Reflux Disease Musculoskeltal Medical History: Reports: Arthritis - RA ,psoriatic Hematology: Reports: Anemia Past Surgical History Past Surgical History: Reports: Cardiac Catheterization, Orthopedic Surgery - CARPAL TUNNEL, TRIGGER FINGER, Vascular Surgery - L LOWER ARM SHUNT Denies: Pacemaker Family History Family History: Reviewed & Not Pertinent Parental Family History Reviewed: No Children Family History Reviewed: No Sibling(s) Family History Reviewed.: No Social History Smoking Status: Never Smoker Hx Recreational Drug Use: No Hx Prescription Drug Abuse: No Physical Exam Vital Signs: Temp Pulse Resp BP Pulse Ox 97.7 F 68 16 167/88 H 95 11/02/17 10:42 11/02/17 10:42 11/02/17 10:42 11/02/17 10:42 11/02/17 10:42 Intake & Output 11/01/17 11/02/17 11/03/17 06:59 06:59 06:59 Weight 107 kg Additional comments: Constitutional: Well-developed well-nourished -[place] gentleman. No apparent acute distress. Eyes: Mucous membranes pink and moist, pupils equal and reactive to light. Conjunctiva normal. Cornea normal. ENT: Hearing grossly normal. External pinna normal to inspection. Teeth intact. Tongue normal to inspection. Cardiac: Heart sounds 1 and 2 normal, no murmurs. Respiratory breath sounds are present bilaterally, normal. Normal respiratory effort. Psychiatric: Judgment, memory, insight seem normal. Mood is pleasant and appropriate. Extremities: Upper extremities show normal range of movement. Pulses present noted to the radial arteries. Capillary refill normal. No cyanosis noted. No muscle wasting noted. Left forearm radiocephalic fistula noted, normal bruit. Somewhat firm in the first 3 cm, suggestive of outflow stenosis. Impression/Plan Impression: This patient with fistula malfunction detected on routine hemodialysis evaluation is appropriate for intervention. The plan would be to do angiogram and possible angioplasty. The procedure, its risks, expected outcome and alternatives were gone over the patient. He is agreeable.
--- NOTE | 2017-11-02 12:29 | PDOC DISCHARGE SUMMARY ---
Discharge Summary (SDC) - Discharge Final Diagnosis: #1 malfunctioning AV fistula, left radiocephalic. 2. End-stage renal disease on hemodialysis. 3. Coronary artery disease. 4. Hypertension. Date of Surgery: 11/02/17 Discharge Date: 11/02/17 Condition: Good Treatment or Instructions: Discharge home [after recovery per ASU criteria]. Diet , [renal],as tolerated, when fully awake advance as tolerated. Activities within moderation encouraged. Follow up in my office by appointment in about months. Call for appointment. Leave wounds [covered], [keep clean and dry, until hemodialysis]. Hold of on school/work [until evaluation in office]. Meds per med rec. May shower [in 48 hrs], [try to keep operated area as dry as possible]. Discharge Diet: Other (Comments) - Renal Respiratory Treatments at Home: Deep Breathing/Coughing Discharge Activity: Activity As Tolerated Report the Following to Your Physician Immediately: Shortness of Breath, Unusual Bleeding
--- NOTE | 2017-11-02 12:34 | Operative Report ---
Operative Report DATE OF SURGERY: 11/02/17 PREOPERATIVE DIAGNOSIS: #1 malfunctioning AV fistula, left radiocephalic. 2. End-stage renal disease on hemodialysis. 3. Coronary artery disease. 4. Hypertension POSTOPERATIVE DIAGNOSIS: #1 malfunctioning AV fistula, left radiocephalic. Post angioplasty. 2. End-stage renal disease on hemodialysis. 3. Coronary artery disease. 4. Hypertension the patient is OPERATION: #1 needle access into fistula. 2. Distal angioplasty. 3. Angiogram and interpretation. SURGEON: DAYA BUCK 1ST PLANT PRODUCTION WORKER: None ANESTHESIA: Moderate Sedation TISSUE REMOVED OR ALTERED: Not applicable. COMPLICATIONS: None ESTIMATED BLOOD LOSS: 3 mL. INTRAOPERATIVE FINDINGS: Relatively high pressures in the proximal fistula. Diffuse area of stenosis noted about 6 cm away from the anastomosis. Uniplanar view about 50% of adjacent lumen. Quite large collaterals immediately adjacent suggest hemodynamic significance. Elimination, improvement with a 6 mm angioplasty balloon. In this patient who has had a number of angioplasties use of a drug-eluting balloon may be beneficial in the future. PROCEDURE: PROCEDURE: After verifying the procedure and having obtained informed consent, the patient's left arm and forearm were prepared with Chlorhexidine and draped out with sterile linen. Local anesthesia infiltrated. Percutaneous access into the fistula ,[ antegrade], obtained about [2 cm] from the arteriovenous anastomosis using a micro puncture needle followed by micro puncture wire and then a micro puncture catheter. A 0.035 [place] wire was inserted, and over this, a 6 angiogram was done. [place] short introducer was placed, this was followed by a [6-mm] angioplasty balloon . Angioplasty was Done using a 6 mm high-pressure balloon for 2 minutes using a 3 mils syringe..] . Completion angiogram demonstrated [satisfactory result]. The instrumentation was now withdrawn over hand-held pressure for 10 minutes. Dressings applied, procedure concluded. Exposure time: 0.5 minutes Radiation: 7.38 vicente per centimeter squared Contrast: 25 mL of Isovue-300, low osmolality. DICTATING PHYSICIAN: DAYA BUCK M.D. cc: DAYA BUCK M.D. ([id number]) >>
--- NOTE | 2017-11-02 13:08 | RADIOLOGY REPORT (SQ) ---
EXAM DESCRIPTION: FISTULAGRAM W/PLASTY COMPLETED DATE/TIME: 11/02/2017 12:34 pm REASON FOR STUDY: T82.858A T82.858A STENOSIS OF OTHER VASCULAR PROSTH DEV/GRFT, INIT COMPARISON: None. FLUOROSCOPY TIME: 0.5 minutes 14 images saved to PACS. TECHNIQUE: Intra-operative images acquired during surgical procedure to evaluate progress. NUMBER OF IMAGES: 14 LIMITATIONS: None. FINDINGS: Selected images from arteriography and balloon angioplasty upper extremity. IMPRESSION: IMAGE(S) OBTAINED DURING PROCEDURE. COMMENT: Quality ID [id number]: Final reports for procedures using fluoroscopy that document radiation exp osure indices, or exposure time and number of fluorographic images (if radiation exposure indices are not available) Please consult full operative report of the attending physician for description of the procedure. TECHNICAL DOCUMENTATION: JOB ID: [id number] [employer])- All Rights Reserved
[2017-11-02] MEDS ORDERED: NORMAL SALINE 1000 ML 1,000 ML IV PRN (13:29)
[2017-11-02 14:12] VITALS: BP 157/87
== END 2017-11-02 14:00 | disposition home or self-care (01) ==
LOC: CCL 08:56
PROVIDERS: ATTEND Surgery
PROC: 057F3DZ Dilation of Left Cephalic Vein with Intraluminal Device, Percutaneous Approach (ICD-10-PCS; principal; 2017-11-02)
DX: T82.858A Stenosis of other vascular prosthetic devices, implants and grafts, initial encounter (principal); Y83.2 Surgical operation with anastomosis, bypass or graft as the cause of abnormal reaction of the patient, or of later complication, without mention of misadventure at the time of the procedure; I12.0 Hypertensive chronic kidney disease with stage 5 chronic kidney disease or end stage renal disease; N18.6 End stage renal disease; Z99.2 Dependence on renal dialysis; I25.10 Atherosclerotic heart disease of native coronary artery without angina pectoris; Z79.82 Long term (current) use of aspirin; Z79.899 Other long term (current) drug therapy; Z88.0 Allergy status to penicillin; E11.22 Type 2 diabetes mellitus with diabetic chronic kidney disease; M06.9 Rheumatoid arthritis, unspecified; K21.9 Gastro-esophageal reflux disease without esophagitis
CPT/HCPCS: 36415; 85027; 80048; 36902; C1752; C1725; Q9967; C1769; J2250; J1644 ×2; A9270 ×2; J3010; J3490

== ENCOUNTER 2017-11-17 00:14 | Inpatient (IN) | payer MEDICARE, OTHER ==
[2017-11-17] MEDS ORDERED: FUROSEMIDE INJ/PF 40 MG/4 ML SDV IV ONE (00:29)
--- NOTE | 2017-11-17 00:36 | ER Document Report ---
ED General - General Stated Complaint: DIFFICULTY BREATHING Notes: Patient is a 67-year-old male who presents with complaints of difficulty breathing. Denies any chest pain. Said that his difficulty breathing came on suddenly. No recent fevers or infections. He is a dialysis patient. Is followed by Dr. Irizarry. He does still make urine. He is on Lasix. He is due for dialysis in the morning. He has not missed any dialysis appointments. He says his last dialysis went normal without difficulty. Paramedics arrived his oxygen saturation was 57%. He was hypertensive. The placed Nitropaste on him. I placed him on CPAP. He says this is helped tremendously. He has no other complaints at this time. TRAVEL OUTSIDE OF THE [place] IN LAST 30 DAYS: No - Related Data Allergies/Adverse Reactions: iodine [Iodine] Allergy (Severe, Verified 08/24/17 06:51) hives/skin hot niacin [Niacin] Allergy (Severe, Verified 08/24/17 06:51) flushed Penicillins Allergy (Severe, Verified 08/24/17 06:51) rash Gwigyax-Ujt-Ptc Reductase Inhibitor Allergy (Severe, Verified 08/24/17 06:51) muscle pain,elevated enzymes contrast dye Allergy (Mild, Uncoded 08/24/17 06:51) Hives Past Medical History - Social History Smoking Status: Unknown if Ever Smoked Frequency of alcohol use: None Drug Abuse: None Family History: Reviewed & Not Pertinent - Past Medical History Cardiac Medical History: Reports: Hx Coronary Artery Disease, Hx Hypertension - tx since 1997 Denies: Hx Heart Attack Pulmonary Medical History: Denies: Hx Asthma, Hx Bronchitis, Hx COPD, Hx Pneumonia Neurological Medical History: Reports: Hx Seizures - when on dialysis pt states staff tells him has shaking. Denies: Hx Cerebrovascular Accident Endocrine Medical History: Reports: Hx Diabetes Mellitus Type 2 GI Medical History: Reports: Hx Gastroesophageal Reflux Disease Musculoskeltal Medical History: Reports Hx Arthritis - RA ,psoriatic Past Surgical History: Reports: Hx Cardiac Catheterization, Hx Orthopedic Surgery - CARPAL TUNNEL, TRIGGER FINGER, Hx Vascular Surgery - L LOWER ARM SHUNT. Denies: Hx Pacemaker - Immunizations Hx Diphtheria, Pertussis, Tetanus Vaccination: Yes Hx Pneumococcal Vaccination: 11/30/09 Review of Systems - Review of Systems Notes: My Normal Review Basic REVIEW OF SYSTEMS: CONSTITUTIONAL : Denies fever, chills, or sweats. Denies recent illness. EENT: Denies eye, ear, throat, or mouth pain or symptoms. Denies nasal or sinus congestion. CARDIOVASCULAR: Denies chest pain. RESPIRATORY: Difficulty breathing GASTROINTESTINAL: Denies abdominal pain. Denies nausea, vomiting, or diarrhea. GENITOURINARY: Denies difficulty urinating, painful urination, burning, frequency, or blood in urine. MUSCULOSKELETAL: Denies neck or back pain or joint pain or swelling. SKIN: Denies rash or skin lesions. NEUROLOGICAL: Denies altered mental status or loss of consciousness. Denies headache. Denies weakness or paralysis or loss of use of either side. Denies problems with gait or speech. Denies sensory or motor loss. ALL OTHER SYSTEMS REVIEWED AND NEGATIVE. Physical Exam - Vital signs Vitals: Resp Pulse Ox 32 H 100 11/17/17 00:18 11/17/17 00:18 - Notes Notes: General Appearance: Well nourished, alert, cooperative, mild to moderate acute distress, no obvious discomfort. Vitals: reviewed, See vital signs table. Head: no swelling or tenderness to the head Eyes: PERRL, EOMI, Conjuctiva clear Mouth: No decreasd moisture Throat: No tonsillar inflammation, No airway obstruction Neck: Supple, no neck tenderness Lungs: No wheezing, bilateral rales. Heart: Normal rate, Regular rythm, No murmur, no rub Abdomen: Normal BS, soft, No rigidity, No abdominal tenderness, No guarding, no rebound, no abdominal masses, no organomegaly Extremities: strength 5/5 in all extremities, good pulses in all extremities, no swelling or tenderness in the extremities, 1+ bilateral lower extremity edema. Skin: warm, dry, appropriate color, no rash Neuro: speech clear, oriented x 3, normal affect, responds appropriately to questions. Course - Re-evaluation Re-evalutation: 11/17/17 02:14 Patient continues to do very well on the BiPAP. His blood pressure is improved with the Nitropaste was placed on the paramedics. He does require dialysis this morning. We will admit the patient for continued treatment with the BiPAP as well as to get dialysis this morning to help resolve his symptoms. I do suspect that he had acute pulmonary edema based on his hypertension, sudden onset of symptoms, and rales on initial lung auscultation. I did speak with Dr. Kraft, hospitalist, who agrees to accept the patient. Dictation of this chart was performed using voice recognition software; therefore, there may be some unintended grammatical errors. - Vital Signs Vital signs: Temp Pulse Resp BP Pulse Ox 98.4 F 24 H 147/76 H 99 11/17/17 00:30 11/17/17 01:01 11/17/17 01:01 11/17/17 01:01 - Laboratory Result Diagrams: 11/17/17 00:44 11/17/17 00:44 Laboratory results interpreted by me: 11/17/17 11/17/17 00:44 00:44 WBC 12.1 H RBC 3.03 L Hgb 9.0 L Hct 26.9 L RDW 14.7 H Seg Neutrophils % 85.4 H Lymphocytes % 7.0 L Absolute Neutrophils 10.3 H Potassium 5.2 H Carbon Dioxide 19 L Anion Gap 22 H BUN 73 H Creatinine 13.21 H Est GFR ( Amer) 5 L Est GFR (Non-Af Amer) 4 L Glucose 168 H Creatine Kinase 467 H - EKG Interpretation by Me Additional EKG results interpreted by me: 11/17/17 00:32 EKG is reviewed and interpreted by me. EKG shows no ST segment elevation. Patient does have some small amount of ST segment depression in leads I, V5 and V6. These are new in comparison to his previous EKG from August 2015. SD interval, QRS duration, QTc intervals are within normal range. Discharge - Discharge Clinical Impression: ESRD needing dialysis, Acute pulmonary edema Condition: Stable Admitting Provider: Hospitalist Unit Admitted: Telemetry
[2017-11-17 01:06] LABS: ABSOLUTE BASOPHILS # (AUTO) 0.1 10^3/uL (0.0-0.2); ABSOLUTE EOSINOPHILS # (AUTO) 0.3 10^3/uL (0.0-0.6); ABSOLUTE LYMPHOCYTES (AUTO) 0.8 10^3/uL (0.5-4.7); ABSOLUTE MONOCYTES (AUTO) 0.5 10^3/uL (0.1-1.4); ABSOLUTE NEUT (AUTO) 10.3 10^3/uL (1.7-8.2); EOSINOPHILS % (AUTO) 2.7 % (0-6); HEMATOCRIT 26.9 % (37.9-51.0); HGB HCT DIFFERENCE 0.1; MEAN CORPUSCULAR HEMOGLOBIN 29.7 pg (27.0-33.4); MEAN CORPUSCULAR HGB CONC 33.5 g/dL (32.0-36.0); MEAN CORPUSCULAR VOLUME 89 fl (80-97); MONOCYTES % (AUTO) 3.9 % (3-13); RED BLOOD COUNT 3.03 10^6/uL (4.35-5.55); RED CELL DISTRIBUTION WIDTH 14.7 % (11.5-14.0); SEGMENTED NEUTROPHILS % (AUTO) 85.4 % (42-78); WHITE BLOOD COUNT 12.1 10^3/uL (4.0-10.5)
[2017-11-17 01:19] LABS: ALANINE AMINOTRANSFERASE 22 U/L (21-72); ALBUMIN 4.1 g/dL (3.5-5.0); ALKALINE PHOSPHATASE 82 U/L (38-126); ASPARTATE AMINO TRANSFERASE 21 U/L (17-59); BILIRUBIN,DIRECT 0.3 mg/dL (0.0-0.4); BILIRUBIN,TOTAL 0.4 mg/dL (0.2-1.3); BLOOD UREA NITROGEN 73 mg/dL (7-20); CALCIUM 9.3 mg/dL (8.4-10.2); CHLORIDE 104 mmol/L (98-107); CREATINE KINASE 467 U/L (55-170); CREATININE RESULT 13.21 mg/dL (0.52-1.25); GLUCOSE 168 mg/dL (75-110); POTASSIUM 5.2 mmol/L (3.6-5.0); TOTAL PROTEIN 6.3 g/dL (6.3-8.2)
[2017-11-17 01:27] LABS: CARBON DIOXIDE 19 mmol/L (22-30); SODIUM 144.6 mmol/L (137-145)
[2017-11-17 01:29] LABS: CREATINE KINASE MB 2.59 ng/mL (<4.55)
[2017-11-17 01:33] LABS: ANION GAP 22 (5-19)
[2017-11-17 01:36] LABS: TROPONIN I 0.04 ng/mL
--- NOTE | 2017-11-17 01:53 | RADIOLOGY REPORT (SQ) ---
EXAM DESCRIPTION: CHEST SINGLE VIEW CLINICAL HISTORY: 67 years, Male, dyspnea COMPARISON: None. NUMBER OF VIEWS: 1 FINDINGS: Mild/moderate patchiness of bilateral lower lobes with likely minimal consolidation. Normal cardiac silhouette. Intact bony thorax. IMPRESSION: Lncb-io-opjlncsk bilateral lower lobar pneumonia. Differential diagnosis includes pulmonary edema. 2011 [employer]- All Rights Reserved
[2017-11-17] MEDS ORDERED: GLUCAGON,HUMAN RECOMB 1 MG INJ IM PRN (02:42)
[2017-11-17] MEDS ORDERED: DEXTROSE 50%-WATER 25 GM/50 ML DISP.SYRIN IV PRN ×2 (02:42)
[2017-11-17] MEDS ORDERED: INSULIN LISPRO 100 UNIT/ML 3 ML VIAL SUBCUT PRN (02:42)
[2017-11-17] MEDS ORDERED: DEXTROSE 40% GEL 15 GM TUBE PO PRN ×2 (02:42)
[2017-11-17] MEDS ORDERED: ACETAMINOPHEN 325 MG TABLET PO PRN (03:16)
[2017-11-17 04:12] LABS: APPEARANCE,URINE CLEAR; BILIRUBIN,URINE NEGATIVE (NEGATIVE); GLUCOSE, URINE 150 mg/dL (NEGATIVE); KETONES,URINE NEGATIVE (NEGATIVE); LEUKOCYTE ESTERASE,URINE NEGATIVE (NEGATIVE); NITRITE,URINE NEGATIVE (NEGATIVE); PROTEIN,URINE 100 mg/dL (NEGATIVE); URINE SPECIFIC GRAVITY 1.006; UROBILINOGEN,URINE NEGATIVE mg/dL (<2.0)
[2017-11-17 04:33] LABS: THYROID STIMULATING HORMONE 2.97 uIU/mL (0.47-4.68)
[2017-11-17] MEDS ORDERED: LEVOFLOXACIN 750 MG TABLET PO SCH (06:00)
[2017-11-17] MEDS ORDERED: HEPARIN SOD (PORCINE) 5,000 UNIT/ML 1 ML SYRINGE SUBCUT SCH (06:00)
[2017-11-17] MEDS: NITROGLYCERIN 2% OINTMENT 1 GM PACKET TP SCH ×3 (06:28→18:04)
[2017-11-17] MEDS ORDERED: HYDRALAZINE HCL INJ/PF 20 MG/1 ML SDV IV PRN (07:25)
--- NOTE | 2017-11-17 07:31 | PDOC H&P ---
History of Present Illness Admission Date/PCP: 11/17/17 02:36 YULIA BRUCE MD History of Present Illness: RHYS BUCK is a 67 year old male with past medical history of hypertension , obstructive sleep apnea, GERD, diverticulitis who presents to the emergency department with acute shortness of breath. Patient reports that he dialyzed normally on Thursday. He denied any difficulty with this. He reports that he has only been gaining less than half a kilo in between his dialysis sessions. Patient awoke this evening while on his CPAP and found himself to be acutely short of breath. Upon arrival to the emergency department patient was found to be hypertensive with a systolic blood pressure reported to be 198/102 and saturating 57%. He was placed on BiPAP and given nitro paste with improvement. Is referred to the hospital service for hypertensive emergency and volume overload. Past Medical History Cardiac Medical History: Reports: Coronary Artery Disease, Hypertension - tx since 1997 Denies: Myocardial Infarction Pulmonary Medical History: Denies: Asthma, Bronchitis, Chronic Obstructive Pulmonary Disease (COPD), Pneumonia Neurological Medical History: Reports: Seizures - when on dialysis pt states staff tells him has shaking Endocrine Medical History: Reports: Diabetes Mellitus Type 2 GI Medical History: Reports: Gastroesophageal Reflux Disease Musculoskeltal Medical History: Reports: Arthritis - RA ,psoriatic Hematology: Reports: Anemia Past Surgical History Past Surgical History: Reports: Cardiac Catheterization, Orthopedic Surgery - CARPAL TUNNEL, TRIGGER FINGER, Vascular Surgery - L LOWER ARM SHUNT Denies: Pacemaker Social History Smoking Status: Never Smoker Frequency of Alcohol Use: None Hx Recreational Drug Use: No Hx Prescription Drug Abuse: No - Advance Directive Resuscitation Status: Full Code Surrogate healthcare decision maker:: , Family History Family History: DM, Hypertension, Other - Chronic kidney disease Parental Family History Reviewed: Yes Children Family History Reviewed: Yes Sibling(s) Family History Reviewed.: Yes Medication/Allergy Allergies/Adverse Reactions: iodine [Iodine] Allergy (Severe, Verified 08/24/17 06:51) hives/skin hot niacin [Niacin] Allergy (Severe, Verified 08/24/17 06:51) flushed Penicillins Allergy (Severe, Verified 08/24/17 06:51) rash Ixlijer-Csc-Xwp Reductase Inhibitor Allergy (Severe, Verified 08/24/17 06:51) muscle pain,elevated enzymes contrast dye Allergy (Mild, Uncoded 08/24/17 06:51) Hives Review of Systems Constitutional: PRESENT: fatigue. ABSENT: chills, fever(s), headache(s), weight gain, weight loss Eyes: ABSENT: visual disturbances Ears: ABSENT: hearing changes Cardiovascular: PRESENT: dyspnea on exertion. ABSENT: chest pain, edema, orthropnea, palpitations Respiratory: PRESENT: cough, dyspnea. ABSENT: hemoptysis, sputum Gastrointestinal: ABSENT: abdominal pain, constipation, diarrhea, hematemesis, hematochezia, nausea, vomiting Genitourinary: ABSENT: dysuria, hematuria Musculoskeletal: ABSENT: joint swelling Integumentary: ABSENT: rash, wounds Neurological: ABSENT: abnormal gait, abnormal speech, confusion, dizziness, focal weakness, syncope Psychiatric: ABSENT: anxiety, depression, homidical ideation, suicidal ideation Endocrine: ABSENT: cold intolerance, heat intolerance, polydipsia, polyuria Hematologic/Lymphatic: ABSENT: easy bleeding, easy bruising Physical Exam Vital Signs: Temp Pulse Resp BP Pulse Ox 98.4 F 18 149/79 H 100 11/17/17 00:30 11/17/17 03:01 11/17/17 03:00 11/17/17 03:01 General appearance: PRESENT: mild distress, obese, well-developed, well- nourished Head exam: PRESENT: atraumatic, normocephalic Eye exam: PRESENT: conjunctiva pink, EOMI, PERRLA. ABSENT: scleral icterus Ear exam: PRESENT: normal external ear exam Mouth exam: PRESENT: dry mucosa, tongue midline Neck exam: PRESENT: thyromegaly. ABSENT: JVD, lymphadenopathy, tracheal deviation Respiratory exam: PRESENT: clear to auscultation ramesh. ABSENT: rales, rhonchi, wheezes Cardiovascular exam: PRESENT: RRR, +S1, +S2. ABSENT: diastolic murmur, rubs, systolic murmur Pulses: PRESENT: normal dorsalis pedis pul Vascular exam: PRESENT: normal capillary refill GI/Abdominal exam: PRESENT: normal bowel sounds, soft. ABSENT: distended, firm , guarding, mass, organolmegaly, rebound, rigid, tenderness Rectal exam: PRESENT: deferred Extremities exam: PRESENT: full ROM. ABSENT: calf tenderness, clubbing, pedal edema Neurological exam: PRESENT: alert, awake, oriented to person, oriented to place , oriented to time, oriented to situation, CN II-XII grossly intact. ABSENT: motor sensory deficit Psychiatric exam: PRESENT: appropriate affect, normal mood. ABSENT: homicidal ideation, suicidal ideation Skin exam: PRESENT: dry, intact, warm. ABSENT: cyanosis, rash Results Laboratory Results: 11/17/17 11/17/17 11/17/17 00:44 00:44 00:44 WBC 12.1 H Hgb 9.0 L Hct 26.9 L Plt Count 193 Sodium 144.6 Potassium 5.2 H Carbon Dioxide 19 L Anion Gap 22 H BUN 73 H Creatinine 13.21 H Glucose 168 H Calcium 9.3 Total Bilirubin 0.4 Direct Bilirubin 0.3 Creatine Kinase 467 H CK-MB (CK-2) 2.59 Troponin I 0.040 Albumin 4.1 TSH Free T4 11/17/17 00:44 WBC Hgb Hct Plt Count Sodium Potassium Carbon Dioxide Anion Gap BUN Creatinine Glucose Calcium Total Bilirubin Direct Bilirubin Creatine Kinase CK-MB (CK-2) Troponin I Albumin TSH 2.97 Free T4 1.21 Impressions: Chest X-Ray 11/17/17 00:29 IMPRESSION: Nscm-jy-[id number] bilateral lower lobar pneumonia. Differential diagnosis includes pulmonary edema. 2010 [employer]- All Rights Reserved Assessment & Plan - Diagnosis (1) Hypertensive emergency Is this a current diagnosis for this admission?: Yes Plan: Continue with Nitropaste and hydralazine as needed continue patient's home metoprolol and lisinopril and Lasix. (2) NEGRITO (obstructive sleep apnea) Is this a current diagnosis for this admission?: Yes Plan: May use home CPAP (3) Anemia in chronic kidney disease, on chronic dialysis Is this a current diagnosis for this admission?: Yes Plan: Defer to nephrology for Procrit dosing (4) Impaired fasting glucose Is this a current diagnosis for this admission?: Yes Plan: Check A1c (5) Acute pulmonary edema Is this a current diagnosis for this admission?: Yes Plan: Secondary to hypertensive emergency (6) ESRD needing dialysis Is this a current diagnosis for this admission?: Yes Plan: Consult Dr. Bruce (7) Coronary artery disease Qualifiers: Coronary Disease-Associated Artery/Lesion type: unspecified vessel or lesion type [place] vs. transplanted heart: [place] heart Associated angina: angina presence unspecified Qualified Code(s): I25.10 - Atherosclerotic heart disease of [place] coronary artery without angina pectoris Is this a current diagnosis for this admission?: Yes (8) Hyperkalemia Is this a current diagnosis for this admission?: Yes Plan: will be dialyzed today (9) Severe obesity (BMI 35.0-35.9 with comorbidity) Is this a current diagnosis for this admission?: Yes - Time Time Spent: 50 to 70 Minutes Medications reviewed and adjusted accordingly: Yes Anticipated discharge: Home Within: Other
[2017-11-17 07:57] LABS: CREATINE KINASE MB 3.2 ng/mL (<4.55)
[2017-11-17] MEDS ORDERED: CALCIUM ACETATE 667 MG CAPSULE PO SCH (08:00)
[2017-11-17] MEDS ORDERED: FUROSEMIDE INJ/PF 20 MG/2 ML SDV IV ONE (08:00)
[2017-11-17 08:07] LABS: TROPONIN I 0.182 ng/mL
--- NOTE | 2017-11-17 08:12 | EKG REPORT ---
SEVERITY:- ABNORMAL ECG - SINUS RHYTHM LEFT ATRIAL ABNORMALITY NONSPECIFIC LATERAL ST-T CHANGES : Confirmed by: Del Kay MD 17-Nov-2017 08:12:28
[2017-11-17] MEDS ORDERED: CALCIUM ACETATE 667 MG CAPSULE PO PRN (08:44)
[2017-11-17] MEDS ORDERED: FLUTICASONE NASAL SPRAY 50 MCG/SPRY 120 SPRAY/16 GM NASL PRN (08:44)
[2017-11-17] MEDS ORDERED: (PENDING PHARMACY ID) (Oxycodone Hcl/Acetaminophen [Percocet 10-325 Mg Tablet] 1 EACH) PO PRN (08:44)
[2017-11-17] MEDS ORDERED: LIDOCAINE 5% (700 MG) TRANSDERMAL ADH..PATCH TP PRN (08:44)
[2017-11-17] MEDS: ASPIRIN 325 MG TABLET PO SCH (09:32)
[2017-11-17] MEDS: DOCUSATE SODIUM 100 MG CAPSULE PO SCH ×2 (09:32→18:04)
[2017-11-17] MEDS: PREGABALIN 50 MG CAPSULE PO SCH (09:33)
[2017-11-17] MEDS ORDERED: HEPARIN SOD (PORCINE) 1,000 UNIT/ML 10 ML VIAL IV ONE (09:51)
[2017-11-17] MEDS ORDERED: HEPARIN SODIUM,PORCINE/D5W 25,000 UNIT/250 ML RTUINJ IV PRN (09:51)
[2017-11-17] MEDS ORDERED: METOPROLOL SUCCINATE 25 MG TAB.SR.24H PO SCH (10:00)
[2017-11-17] MEDS ORDERED: ENOXAPARIN SODIUM INJ 120 MG/0.8 ML DISP.SYRIN SUBCUT SCH (10:00)
[2017-11-17] MEDS ORDERED: (PENDING PHARMACY ID) (Lisinopril [Prinivil 2.5 Mg Tablet] 2.5 MG) PO SCH (10:00)
[2017-11-17] MEDS ORDERED: HEPARIN SOD (PORCINE) 1,000 UNIT/ML 10 ML VIAL IV PRN (10:09)
[2017-11-17] MEDS ORDERED: OXYCODONE-ACETAMINOPHEN 5-325 MG TABLET PO PRN (10:13)
[2017-11-17] MEDS ORDERED: OXYCODONE HCL IR 5 MG TABLET PO PRN (10:14)
[2017-11-17 10:24] LABS: ABSOLUTE BASOPHILS # (AUTO) 0.1 10^3/uL (0.0-0.2); ABSOLUTE EOSINOPHILS # (AUTO) 0.2 10^3/uL (0.0-0.6); ABSOLUTE LYMPHOCYTES (AUTO) 0.7 10^3/uL (0.5-4.7); ABSOLUTE MONOCYTES (AUTO) 0.4 10^3/uL (0.1-1.4); ABSOLUTE NEUT (AUTO) 6.9 10^3/uL (1.7-8.2); BASOPHILS % (AUTO) 1.1 % (0-2); EOSINOPHILS % (AUTO) 2.6 % (0-6); HEMATOCRIT 24.1 % (37.9-51.0); HEMOGLOBIN 8.3 g/dL (13.5-17.0); HGB HCT DIFFERENCE 0.8; LYMPHOCYTES % (AUTO) 8.2 % (13-45); MEAN CORPUSCULAR HEMOGLOBIN 30.2 pg (27.0-33.4); MEAN CORPUSCULAR HGB CONC 34.3 g/dL (32.0-36.0); MEAN CORPUSCULAR VOLUME 88 fl (80-97); MONOCYTES % (AUTO) 4.9 % (3-13); RED BLOOD COUNT 2.74 10^6/uL (4.35-5.55); RED CELL DISTRIBUTION WIDTH 14.8 % (11.5-14.0); SEGMENTED NEUTROPHILS % (AUTO) 83.2 % (42-78); WHITE BLOOD COUNT 8.3 10^3/uL (4.0-10.5)
[2017-11-17 10:29] LABS: PROTHROMBIN TIME 14.8 SEC (11.4-15.4)
[2017-11-17 10:30] LABS: PARTIAL THROMBOPLASTIN TIME 33.4 SEC (23.5-35.8)
[2017-11-17] MEDS ORDERED: LISINOPRIL 5 MG TABLET PO ONE (10:30)
[2017-11-17] MEDS: CALCIUM ACETATE 667 MG CAPSULE PO SCH ×2 (11:27→18:03)
--- NOTE | 2017-11-17 12:00 | Physician Advisory Note ---
Physician Advisor ProgressNote .: Pursuant to the [facility] for [facility], I have reviewed the medical record for this patient. Physician Advisor Statement: Nice documentation of suspected "Acute pulmonary edema" & "hypertensive emergency causing Ac pulm edema", & anemia of CKD. Please consider documenting, if you agree: 1. "Acute Hypoxemic Respiratory Failure, evidenced by labored breathing in ED/ hypoxemia/ w/acute distress & requiring Bipap." 2. ? "Acute NSTEMI", or "acute cardiac ischemia due to ___", or "acute worsening in trop I due to " ... 3. ? "Acute ___ type CHF"? ? "BLL pneumonia, suspect ____ type" [gram +?, gram neg?, ...] 4. "Acute anion gap metabolic acidosis, likely due to " 5. Medical necessity: Please clearly document the clinical issues that make attending fully expect pt will most certainly need to stay in hospital at least through 11/19 AM, or else pt should be Obs status to start, only changing to Inpt on 11/18 after proving he is not yet safe for d/c then. See below. Status issues: 67yo Medicare pt with CAD, DM-2, HTN, ESRD on HD, NEGRITO on CPAP, RA & psoriatic arthritis, came in very early 11/17 AM with sudden onset SOB, initial O2 sat 57 % for EMS with very high BP, for which he was given NTPaste. ED nurse documented breathing labored, RABAGO, SOB @rest as well, on Bipap. In ED, given BIpap & Lasix 40mg IV (@00:29), pt was in acute distress w/RR32 & 1st documented BP 186/98 despite the NTPaste, sat 100% but that was on O2 (?& Bipap too?) - Pt w/bilat rales, no wheezing. Due for HD, but no HD missed. CXR read as BLL pneumonia vs pulmonary edema. A. gap 22, bicarb 19, WBC 12.1, Hgb 9.0 ( 8.3 on recheck), Cr 13.2, trop I 0.04 initially & then up to 0.182 on re-check ( was 0.013 in 2015). Attending has ordered nephrology consult for HD, cardiology consult, I/Os, tele , ASA daily, repeat cardiac enzymes, Lasix 40mg IV again at 08:00, po Levaquin, & f/u labs. This patient is at extremely high risk for further clinical decompensation & in the short term. He already has underlying CAD, which puts him at higher risk for AMI in setting of hypoxemia or hypertensive emergency - & especially with both. His acute pulmonary edema is harder to reverse given his ESRD. His NEGRITO puts further strain on his heart even at baseline, making any other cardiac or pulmonary decompensation that much more problematic & difficult to tolerate & treat successfully. His anemia further stresses his heart and makes any degree of hypoxemia more damaging to all of his body organs - most certainly with the degree of hypoxemia documented in this case - and after diuretic tx the Hgb actually looks worse instead of better , which is even more worrisome. He already has end stage disease of the kidneys requiring dialysis at baseline. Any acute CHF he may have may be worsened acutely by developing cardiac ischemia, which in turn can be further worsened by acute CHF developing or worsening. More hypertension in this situation can cause further worsening in pulmonary edema, cardiac ischemia, acute CHF, & resulting acute respiratory failure, while hypotension could also worsen cardiac ischemia & cause further stress/damage to other body organs. This is not just a simple case of acute pulmonary edema in a HD pt who just needs an quick dialysis tx & he'll be just fine & ready to go home. This pt with baseline 1 organ system failure came in with a 2nd organ system acutely decompensating to a severe degree, and now has evidence of yet another organ system newly decompensating. Extremely high severity of illness, high intensity of service. Even if tx.s today eventually produce significant improvements in his clinical status, he may not be clinically safe for d/c home already on 11/18, after 1 MN. Will need very close monitoring & tx. See above. Expect today's & tomorrow's documentation will support Inpatient status. Have texted attending to confirm reviewer impression for status is accurate, that there isn't a reasonable possibility in her mind that pt could be able to improve enough for d/c tomorrow to be safe. CK Addendum 11/25/17: Discussed with attending Sulema. Pt went home after 1 MN. Asked for clarification of her thoughts & concerns on pt, r.e. status. - She said she had been extremely concerned about this patient on 11/17 AM, that this wasn't just a typical "Acute CHF because missed dialysis, just needs a dialysis tx & d/c" sort of case that should be Obs to start. She noted pt had not missed any dialysis treatments, so she did not think this would be just acute CHF from fluid overload from that - that something else must be going on - new cardiac decompensation, or hypertensive emergency, or severe pneumonia, or .... She was concerned for acute NSTEMI, based on huge jump in trop I's that AM. She noted he did use CPAP at times for NEGRITO, but at this point he appeared to have a tremendous decompensation in his breathing, to the point he was needing Bipap, even several hours after a dose of IV Lasix in ED (& again at 08:00), & this led her to expect the pneumonia was severe. Putting all this together, she saw evidence of acute multisystem organ failure, with extremely high overall acuity and risks for further acute adverse events, and felt the patient would surely need at least 2 MNs of hospital care before d/c would be considered. She stated she was indeed quite surprised to find that pt's clinical issues responded as quickly as they did (due to his extremely aggressive, appropriate care), allowing him to be discharged the next day, . This would therefore not only fit the "unforeseen circumstances exception to the 2MN Expectation", given the attending's reasonable expectation at time of Inpt admission order that the patient would require at least 2 MNs of hospital care & monitoring, but should also fit the CMS "[id number] determination" requirement based on intensity of care/risk of adverse event without hospitalization/severity of signs &sx, based on clinical judgment. Appropriately Inpatient status. CK
[2017-11-17 13:09] LABS: APPEARANCE,URINE CLEAR; BILIRUBIN,URINE NEGATIVE (NEGATIVE); GLUCOSE, URINE 50 mg/dL (NEGATIVE); KETONES,URINE NEGATIVE (NEGATIVE); LEUKOCYTE ESTERASE,URINE NEGATIVE (NEGATIVE); NITRITE,URINE NEGATIVE (NEGATIVE); PROTEIN,URINE 30 mg/dL (NEGATIVE); URINE SPECIFIC GRAVITY 1.006; UROBILINOGEN,URINE NEGATIVE mg/dL (<2.0)
[2017-11-17 13:29] LABS: CREATINE KINASE MB 3.56 ng/mL (<4.55); TROPONIN I 0.15 ng/mL
--- NOTE | 2017-11-17 14:01 | XCELERA REPORT ---
[address] [address] Transthoracic Echocardiogram Report Name: RHYS BUCK Age: 67 yrs Gender: Male : 1950 Patient Status: Inpatient Patient Location: [address] [place] [address] Study Date: 11/17/2017 08:34 AM Height: 69 in Weight: 242 lb BSA: 2.2 m2 Procedure: A two-dimensional transthoracic echocardiogram with color flow and Doppler was performed. The study was technically difficult with many images being suboptimal in quality. Reason For Study: chf History: CHF. Ordering Physician: MERLENE LAZARO Performed By: Kalpana Jennings Interpretation Summary The left ventricle is normal in size. There is mild asymmetric left ventricular hypertrophy. nO 'nettie OR lvot OBSTRUCTION , HENCE NO hocm.(ihss). LV EF is 65% Left ventricular systolic function is normal. Doppler measurements suggest impaired left ventricular relaxation, which is associated with grade I/IV or mild diastolic dysfunction The left ventricular wall motion is normal. There is no thrombus. The right ventricle is not well visualized secondary to technical limitations The left atrial size is normal. There is no evidence of mitral valve prolapse. There is no vegetation seen on the mitral valve. There is no mitral valve stenosis. There is a trace to mild amount of mitral regurgitation There is no aortic valvular vegetation. There is mild aortic stenosis There is a peak gradient of 19 mm of Hg. There is no LVOT obstruction. No aortic regurgitation is present. There is no tricuspid stenosis. There is a moderate amount of tricuspid regurgitation There is mild pulmonary hypertension by echo RVSP IS 44 MM OF Hg , , WITH ra MEAN OF 10. There is no pericardial effusion. MMode/2D Measurements & Calculations RVDd: 2.9 cm LVIDd: 4.8 cm FS: 41.3 % Ao root diam: 2.9 cm IVSd: 1.3 cm LVIDs: 2.8 cm EDV(Teich): 108.7 ml LVPWd: 1.2 cm ESV(Teich): 30.3 ml Ao root area: 6.7 cm2 EF(Teich): 72.1 % LA dimension: 3.6 cm Doppler Measurements & Calculations MV E max randal: MV P1/2t max randal: Ao V2 max: LV V1 max P.7 cm/sec 102.2 cm/sec 218.3 cm/sec 9.0 mmHg MV A max randal: MV P1/2t: 63.4 msec Ao max PG: LV V1 max: 104.1 cm/sec 19.1 mmHg 149.9 cm/sec MV E/A: 0.99 MVA(P1/2t): 3.5 cm2 MV dec slope: 471.9 cm/sec2 PA V2 max: TR max randal: 100.2 cm/sec 291.8 cm/sec PA max PG: TR max P.1 mmHg 4.0 mmHg Left Ventricle The left ventricle is normal in size. There is mild asymmetric left ventricular hypertrophy. nO 'nettie OR lvot OBSTRUCTION , HENCE NO hocm .ihss). LV EF is 65%. Left ventricular systolic function is normal. Doppler measurements suggest impaired left ventricular relaxation, which is associated with grade I/IV or mild diastolic dysfunction. The left ventricular wall motion is normal. There is no thrombus. Right Ventricle The right ventricle is not well visualized secondary to technical limitations. Atria The right atrium is normal. The left atrial size is normal. Mitral Valve There is no evidence of mitral valve prolapse. There is no vegetation seen on the mitral valve. There is no mitral valve stenosis. There is a trace to mild amount of mitral regurgitation. Aortic Valve There is no aortic valvular vegetation. There is mild aortic stenosis. There is a peak gradient of 19 mm of Hg. There is no LVOT obstruction. No aortic regurgitation is present. Tricuspid Valve There is no tricuspid stenosis. There is a moderate amount of tricuspid regurgitation. There is mild pulmonary hypertension by echo. RVSP IS 44 MM OF Hg , , WITH ra MEAN OF 10. Pulmonic Valve There is no pulmonic valvular stenosis. There is no pulmonic valvular regurgitation. Great Vessels The aortic root is normal size. Effusions There is no pericardial effusion. : MERLENE LAZARO > Lety Osman
[2017-11-17] MEDS ORDERED: IPRATROPIUM/ALBUTEROL 0.5-2.5 MG/3 ML AMPUL NEB PRN (14:04)
--- NOTE | 2017-11-17 15:18 | EKG REPORT ---
SEVERITY:- NORMAL ECG - SINUS RHYTHM : Confirmed by: Del Kay MD 17-Nov-2017 15:17:14
--- NOTE | 2017-11-17 15:48 | PDOC PROGRESS REPORT ---
Subjective Progress Note for:: 11/17/17 Subjective:: The patient is seen on morning rounds for follow-up of dyspnea secondary to hypertensive emergency, pulmonary edema, end-stage renal disease on dialysis. He is found resting in bed comfortably, sitting upright with BiPAP in place, and family members present. He has just completed his echocardiogram, the results are not yet available. The patient states that his dyspnea and orthopnea have improved following diuresis with Lasix. He reports that the BiPAP does improve his comfort with breathing. He denies chest pain and palpitations. They have questions with regard to arranging dialysis today as he is on a Thursday, , Thursday schedule with Dr. Irizarry. They have no other questions or concerns at this time. Reason For Visit: HYPERTENSIVE EMERGENCY Physical Exam Vital Signs: Temp Pulse Resp BP Pulse Ox 97.2 F 62 16 156/83 H 97 11/17/17 12:00 11/17/17 12:00 11/17/17 12:00 11/17/17 12:00 11/17/17 12:00 Intake & Output 11/16/17 11/17/17 11/18/17 06:59 06:59 06:59 Intake Total 3 Balance 3 Weight 110.9 kg General appearance: PRESENT: no acute distress, obese, well-developed, well- nourished Head exam: PRESENT: atraumatic, normocephalic Eye exam: PRESENT: conjunctiva pink, EOMI, PERRLA. ABSENT: scleral icterus Ear exam: PRESENT: normal external ear exam Mouth exam: PRESENT: moist, tongue midline Neck exam: ABSENT: carotid bruit, JVD, lymphadenopathy, thyromegaly Respiratory exam: PRESENT: clear to auscultation ramesh, rhonchi - Throughout, other - Currently on BiPAP.. ABSENT: rales, wheezes Cardiovascular exam: PRESENT: RRR, +S1, +S2. ABSENT: diastolic murmur, rubs, systolic murmur Pulses: PRESENT: normal dorsalis pedis pul Vascular exam: PRESENT: normal capillary refill GI/Abdominal exam: PRESENT: normal bowel sounds, soft. ABSENT: distended, guarding, mass, organolmegaly, rebound, tenderness Rectal exam: PRESENT: deferred Extremities exam: PRESENT: full ROM. ABSENT: calf tenderness, clubbing, pedal edema Neurological exam: PRESENT: alert, awake, oriented to person, oriented to place , oriented to time, oriented to situation, CN II-XII grossly intact. ABSENT: motor sensory deficit Psychiatric exam: PRESENT: appropriate affect, normal mood. ABSENT: homicidal ideation, suicidal ideation Skin exam: PRESENT: dry, intact, warm. ABSENT: cyanosis, rash Results Laboratory Results: 11/17/17 10:06 11/17/17 11/17/17 11/17/17 03:35 10:06 12:20 WBC 8.3 RBC 2.74 L Hgb 8.3 L Hct 24.1 L MCV 88 MCH 30.2 MCHC 34.3 RDW 14.8 H Plt Count 180 Seg Neutrophils % 83.2 H Lymphocytes % 8.2 L Monocytes % 4.9 Eosinophils % 2.6 Basophils % 1.1 Absolute Neutrophils 6.9 Absolute Lymphocytes 0.7 Absolute Monocytes 0.4 Absolute Eosinophils 0.2 Absolute Basophils 0.1 Urine Color STRAW STRAW Urine Appearance CLEAR CLEAR Urine pH 8.0 8.0 Ur Specific [place] 1.006 1.006 Urine Protein 100 H 30 H Urine Glucose (UA) 150 H 50 H Urine Ketones NEGATIVE NEGATIVE Urine Blood SMALL H MODERATE H Urine Nitrite NEGATIVE NEGATIVE Ur Leukocyte Esterase NEGATIVE NEGATIVE Urine WBC (Auto) 2 1 Urine RBC (Auto) 1 1 11/17/17 11/17/17 11/17/17 07:10 07:10 12:41 Creatine Kinase 521 H 631 H CK-MB (CK-2) 3.20 Troponin I 0.182 11/17/17 12:41 Creatine Kinase CK-MB (CK-2) 3.56 Troponin I 0.150 Impressions: Chest X-Ray 11/17/17 00:29 IMPRESSION: [id number] bilateral lower lobar pneumonia. Differential diagnosis includes pulmonary edema. 2010 [employer]- All Rights Reserved Assessment & Plan - Diagnosis (1) Healthcare-associated pneumonia Is this a current diagnosis for this admission?: Yes Plan: The patient presented with dyspnea, productive cough, leukocytosis (12.1), with bilateral lower lobe pneumonia is noted by chest x-ray. The patient is a dialysis patient and so will be treated for healthcare associated pneumonia with renally dosed Levaquin. Blood cultures are pending; antibiotics will be adjusted as cultures result. The patient was provided supplemental oxygen to keep saturations greater than 92 %, BiPAP nightly and as needed, duo nebs as needed and Mucinex twice daily. (2) Acute pulmonary edema Is this a current diagnosis for this admission?: Yes Plan: Secondary to hypertensive emergency. The patient's dyspnea and orthopnea has improved slightly following furosemide and with use of BiPAP as needed. Anticipate further improvement once the patient is dialyzed today. (3) Anemia in chronic kidney disease, on chronic dialysis Is this a current diagnosis for this admission?: Yes Plan: Defer to nephrology for Procrit dosing. (4) ESRD needing dialysis Is this a current diagnosis for this admission?: Yes Plan: Dr. Irizarry consulted. (5) Hypertensive emergency Is this a current diagnosis for this admission?: Yes Plan: Continue with Nitropaste and hydralazine as needed. Continue the patient's home medications; metoprolol and lisinopril. Anticipate further improvements following dialysis today. (6) Impaired fasting glucose Is this a current diagnosis for this admission?: Yes Plan: Hemoglobin A1c; 6%. Recommend consistent carb diet. (7) NEGRITO (obstructive sleep apnea) Is this a current diagnosis for this admission?: Yes Plan: BiPAP nightly and as needed. (8) Coronary artery disease Qualifiers: Coronary Disease-Associated Artery/Lesion type: unspecified vessel or lesion type [place] vs. transplanted heart: [place] heart Associated angina: angina presence unspecified Qualified Code(s): I25.10 - Atherosclerotic heart disease of [place] coronary artery without angina pectoris Is this a current diagnosis for this admission?: Yes (9) Hyperkalemia Is this a current diagnosis for this admission?: Yes Plan: Dialysis planned for today. (10) Severe obesity (BMI 35.0-35.9 with comorbidity) Is this a current diagnosis for this admission?: Yes (11) Elevated troponin Is this a current diagnosis for this admission?: Yes Plan: Acute cardiac ischemia secondary to hypertensive urgency and pulmonary edema in patient with end-stage renal disease requiring dialysis. Echocardiogram obtained today; LVEF is 65% grade 1/4 mild diastolic dysfunction noted. Trace mitral regurgitation and mild aortic stenosis is noted. Patient has been placed on full dose aspirin. He does have a statin allergy; stating that in the past he has had an elevated troponin while on statins. We will continue to trend troponins and ask cardiology to meet with patient. - Time Time Spent with patient: 15-24 minutes - Inpatient Certification Based on my medical assessment, after consideration of the patient's comorbidities, presenting symptoms, or acuity I expect that the services needed warrant INPATIENT care.: Yes I certify that my determination is in accordance with my understanding of Medicare's requirements for reasonable and necessary INPATIENT services [42 CFR 412.3e].: Yes Medical Necessity: Need For Continuous Telemetry Monitoring
--- NOTE | 2017-11-17 17:06 | PDOC CONSULTATION ---
Consultation Consult Date: 11/17/17 Attending physician:: MERLENE LAZARO Consult reason:: I was admit Dr. Lazaro to see the patient for supervision of hemodialysis while here in the hospital admitted for hypertensive emergency and acute pulmonary edema. History of Present Illness Admission Date/PCP: 11/17/17 02:36 YULIA BRUCE MD History of Present Illness: Patient is a 67-year-old -[place] gentleman known to me with history of end-stage renal disease on maintenance hemodialysis, hypertension, obstructive sleep apnea, who presented to the emergency room last night with acute shortness of breath and severe hypertension. Patient said that last night he went to bed around 10 PM and he wore his CPAP. At around 10:30 PM while he was wearing his CPAP he experienced acute shortness of breath. He took off his CPAP machine but then he could not get his breath back and his was hearing some gurgling sounds from his chest. He said his anxiety and and his breathing just got worse. He tried to recent a brown bag but that did not work either. He said he was hyperventilating and his chest felt a little bit tight due to the shortness of breath. At around 11:30 PM the asked his to call 911 and EMS came and took him to the emergency room. In the emergency room he was initially placed on BiPAP. His initial blood pressure was found to be 198/102 with oxygen saturation of 57% before BiPAP placement. He was given a Nitropaste and Lasix 40 mg intravenously twice. He had a chest x-ray which showed some mild to moderate bilateral patchiness which could either be a consolidation or pulmonary edema. Patient was also started on IV antibiotics. Patient has been compliant with his hemodialysis on Tuesdays, and Saturdays. His last hemodialysis was last Thursday and it went well without any complications. He denies increased intake of fluid nor salt since Thursday until he went to the emergency room. He denies any cough or fever nor chills. Please take noted patient is not known to gain too much fluid in between dialysis. Patient's blood pressure is usually acceptable in dialysis and sometimes have problem with hypotension rather than hypertension. Patient feels better now and is just on nasal cannula for oxygen supplementation. Patient also came in with elevated troponin. Patient has had cardiac workup as part of the requirement for a kidney transplant evaluation. He had a cardiac catheterization on May 11, 2017 at [facility] which showed left ventricular ejection fraction of 60-65% in the right dominant coronary system with minimal luminal irregularities throughout the coronaries. Recommendations at that time I just risk factor modifications and medical therapy without any further intervention. Echocardiogram was done this morning as well which showed normal ejection fraction and mild grade 1/4 diastolic dysfunction at the most. Past Medical History Cardiac Medical History: Reports: Coronary Artery Disease, Hyperlipidemia, Hypertension-primary Pulmonary Medical History: Reports: Sleep Apnea - On CPAP Neurological Medical History: Reports: Seizures - when on dialysis pt states staff tells him has shaking Endocrine Medical History: Reports: Diabetes Mellitus Type 2 Renal/ Medical History: Reports: End Stage Renal Disease, Proteinuria GI Medical History: Reports: Gastroesophageal Reflux Disease, Other - Diverticulosis Musculoskeltal Medical History: Reports: Arthritis - RA ,psoriatic, Gout, Rheumatoid Arthritis Skin Medical History: Reports: Psoriasis Psychiatric Medical History: Denies: Depression Hematology Medical History: Reports Anemia of Chronic Kidney Disease Past Surgical History Past Surgical History: Reports: Cardiac Catheterization - Last done in May 11, 2017, Dialysis Access Surgery AVF, Orthopedic Surgery - CARPAL TUNNEL, TRIGGER FINGER, Other - Hemorrhoidectomy Social History Information Source: Patient Lives with: Family Smoking Status: Never Smoker Frequency of Alcohol Use: None Hx Recreational Drug Use: No Drugs: None Hx Prescription Drug Abuse: No - Advance Directive Resuscitation Status: Full Code Family History Family History: Chronic Kidney Disease - Father and sister, DM - Mother, father , sister and brother, Hypertension - Sister, Malignancy - Cervical cancer on his sister, Other - Lupus in a sister Parental Family History Reviewed: Yes Children Family History Reviewed: NA Sibling(s) Family History Reviewed.: Yes Medication/Allergy Home Medications: Aspirin [Aspirin EC] 81 mg PO DAILY 11/17/17 Aspirin/Sod Bicarb/Citric Acid [[place] Original Tab Eff] 1 each PO BIDP PRN 11/17/17 Calcium Acetate [Phoslo 667 Mg Capsule] 2,001 mg PO MEALS 11/17/17 Calcium Acetate [[place]os[place] 667 Mg Capsule] 667 mg PO BIDP PRN 11/17/17 Cholecalciferol (Vitamin D3) [Vitamin D3 5000 unit Capsule] 5,000 unit PO DAILY 11/17/17 Cyclobenzaprine HCl [Flexeril 5 mg Tablet] 5 mg PO HSP PRN 11/17/17 Desoximetasone [Topicort] 1 applic TP Q48H 11/17/17 Evolocumab [Repatha Pushtronex] 420 mg SQ ASDIR 11/17/17 Febuxostat [Uloric 80 mg Tablet] 80 mg PO DAILY 11/17/17 Fluticasone Propionate [Flonase Nasal [place] 50 Mcg/[place] 16 gm] 2 sprays NASL DAILYP PRN 11/17/17 Furosemide [Lasix 40 mg Tablet] 40 mg PO BID 11/17/17 Lidocaine [Lidoderm 5% (700 mg) Transdermal Patch] 1 patch TP DAILYP PRN Lisinopril [Prinivil 2.5 mg Tablet] 2.5 mg PO DAILY 11/17/17 Metoprolol Tartrate [Lopressor 50 mg Tablet] 50 mg PO Q12 11/17/17 Oxycodone HCl/Acetaminophen [Percocet 10-325 Mg Tablet] 1 each PO QIDP PRN 11/17 Pantoprazole Sodium [Protonix] 40 mg PO QAM 11/17/17 Pregabalin [Lyrica 50 Mg Capsule] 50 mg PO DAILY 11/17/17 Triamcinolone Acetonide [Aristocort 0.1% Cream 15 gm] 1 applic TP Q48H 11/17/17 Allergies/Adverse Reactions: iodine [Iodine] Allergy (Severe, Verified 08/24/17 06:51) hives/skin hot niacin [Niacin] Allergy (Severe, Verified 08/24/17 06:51) flushed Penicillins Allergy (Severe, Verified 08/24/17 06:51) rash Xiqrqtu-[id number]-Tdz Reductase Inhibitor Allergy (Severe, Verified 08/24/17 06:51) muscle pain,elevated enzymes contrast dye Allergy (Mild, Uncoded 08/24/17 06:51) Hives Review of Systems All systems: reviewed and no additional remarkable complaints except as stated Review of Systems: Constitutional: ABSENT: chills, fatigue, fever(s), headache(s), weight gain, weight loss Eyes: ABSENT: visual disturbances Ears: ABSENT: hearing changes Cardiovascular: ABSENT: orthropnea, palpitations; acute shortness of breath, chest discomfort, chronic mild lower extremity edema Respiratory: ABSENT: cough, dyspnea, hemoptysis Gastrointestinal: ABSENT: abdominal pain, constipation, diarrhea, hematemesis, hematochezia, nausea, vomiting Genitourinary: ABSENT: dysuria, hematuria Musculoskeletal: ABSENT: joint swelling Integumentary: ABSENT: rash, wounds Neurological: ABSENT: abnormal gait, abnormal speech, confusion, dizziness, focal weakness, numbness, syncope Psychiatric: ABSENT: anxiety, depression Endocrine: ABSENT: cold intolerance, heat intolerance, polydipsia, polyuria Hematologic/Lymphatic: ABSENT: easy bleeding, easy bruising, lymphadenopathy Physical Exam Vital Signs: Temp Pulse Resp BP Pulse Ox 97.6 F 63 18 140/72 H 98 11/17/17 16:00 11/17/17 16:00 11/17/17 16:00 11/17/17 16:00 11/17/17 16:00 Intake & Output 11/16/17 11/17/17 11/18/17 06:59 06:59 06:59 Intake Total 3 Balance 3 Weight 110.9 kg Exam: General appearance: no acute distress, cooperative, well-developed, well- nourished Head exam: PRESENT: atraumatic, normocephalic Eye exam: PRESENT: Conjunctiva slightly pale, EOMI, PERRLA. ABSENT: conjunctival injection, scleral icterus Mouth exam: PRESENT: moist, neck supple, tongue midline Neck exam: PRESENT: full ROM. ABSENT: carotid bruit, JVD, lymphadenopathy, thyromegaly Respiratory exam: PRESENT: Diminished to auscultation bilaterally. Bilateral mid to lower base crackles ABSENT: Rhonchi, stridor, wheezes Cardiovascular exam: PRESENT: RRR, +S1, +S2. ABSENT: systolic murmur Pulses: PRESENT: normal radial pulses, normal dorsalis pedis pulses GI/Abdominal exam: PRESENT: normal bowel sounds, soft. ABSENT: guarding, mass, tenderness Rectal exam: deferred Extremities exam: PRESENT: full ROM. ABSENT: calf tenderness, pedal edema Musculoskeletal: PRESENT: full ROM. ABSENT: deformity Neurological exam: PRESENT: alert, Awake, Oriented to person, Oriented to place , Oriented to time, reflexes normal, CN II-XII grossly intact. ABSENT: motor sensory deficit Psychiatric exam: PRESENT: appropriate affect, normal mood. ABSENT: homicidal ideation, suicidal ideation Skin exam: PRESENT: intact, dry, warm. ABSENT: rash Results Laboratory Results: 11/17/17 10:06 11/17/17 11/17/17 11/17/17 03:35 10:06 12:20 WBC 8.3 RBC 2.74 L Hgb 8.3 L Hct 24.1 L MCV 88 MCH 30.2 MCHC 34.3 RDW 14.8 H Plt Count 180 Seg Neutrophils % 83.2 H Lymphocytes % 8.2 L Monocytes % 4.9 Eosinophils % 2.6 Basophils % 1.1 Absolute Neutrophils 6.9 Absolute Lymphocytes 0.7 Absolute Monocytes 0.4 Absolute Eosinophils 0.2 Absolute Basophils 0.1 Urine Color STRAW STRAW Urine Appearance CLEAR CLEAR Urine pH 8.0 8.0 Ur Specific [place] 1.006 1.006 Urine Protein 100 H 30 H Urine Glucose (UA) 150 H 50 H Urine Ketones NEGATIVE NEGATIVE Urine Blood SMALL H MODERATE H Urine Nitrite NEGATIVE NEGATIVE Ur Leukocyte Esterase NEGATIVE NEGATIVE Urine WBC (Auto) 2 1 Urine RBC (Auto) 1 1 11/17/17 11/17/17 11/17/17 07:10 07:10 12:41 Creatine Kinase 521 H 631 H CK-MB (CK-2) 3.20 Troponin I 0.182 11/17/17 12:41 Creatine Kinase CK-MB (CK-2) 3.56 Troponin I 0.150 Impressions: Chest X-Ray 11/17/17 00:29 IMPRESSION: [id number] bilateral lower lobar pneumonia. Differential diagnosis includes pulmonary edema. 2011 [employer]- All Rights Reserved Assessment & Plan - Diagnosis (1) Hypertensive emergency Is this a current diagnosis for this admission?: Yes Plan: Blood pressure is improved currently. Resume his metoprolol on his current outpatient dose at 50 mg twice a day, and lisinopril 2.5 mg p.o. daily. Patient 's blood pressure remains to be uncontrolled we can either increase the lisinopril provided potassium does not go so high or start on either amlodipine or hydralazine orally. (2) Acute pulmonary edema Is this a current diagnosis for this admission?: Yes Plan: Likely due to hypertensive emergency as the patient does not really usually gained weight in between hemodialysis treatment. However that cannot be totally excluded. (3) End stage renal disease Is this a current diagnosis for this admission?: Yes Plan: With associated mild pulmonary congestion on chest x-ray, we will plan to do hemodialysis tomorrow. Patient is currently not hypoxic and hemodynamically stable. (4) Hyperkalemia Is this a current diagnosis for this admission?: Yes Plan: Patient will be dialyzed needs to continue renal diet. (5) Anxiety Is this a current diagnosis for this admission?: Yes (6) Anemia in chronic kidney disease, on chronic dialysis Is this a current diagnosis for this admission?: Yes Plan: Agree with checking occult blood in the stool. We will resume his Epogen on dialysis. (7) Elevated troponin Is this a current diagnosis for this admission?: Yes Plan: Defer to primary care provider or cardiology. (8) NEGRITO (obstructive sleep apnea) Is this a current diagnosis for this admission?: Yes (9) Coronary artery disease Qualifiers: Coronary Disease-Associated Artery/Lesion type: unspecified vessel or lesion type [place] vs. transplanted heart: [place] heart Associated angina: angina presence unspecified Qualified Code(s): I25.10 - Atherosclerotic heart disease of [place] coronary artery without angina pectoris Is this a current diagnosis for this admission?: Yes - Notes Notes: Thank you very much for this consultation. I will supervise dialysis. - Time Time Spent: 50 to 70 Minutes
[2017-11-17] MEDS: FUROSEMIDE 40 MG TABLET PO SCH (18:04)
[2017-11-17 19:39] LABS: CREATINE KINASE MB 3.33 ng/mL (<4.55)
[2017-11-17 19:45] LABS: TROPONIN I 0.121 ng/mL
[2017-11-17] MEDS: HEPARIN SOD (PORCINE) 5,000 UNIT/ML 1 ML SYRINGE SUBCUT SCH (21:48)
[2017-11-17] MEDS: GUAIFENESIN 600 MG TABLET.SA PO SCH (21:48)
[2017-11-17] MEDS: METOPROLOL TARTRATE 50 MG TABLET PO SCH (21:48)
[2017-11-18] MEDS: NITROGLYCERIN 2% OINTMENT 1 GM PACKET TP SCH ×3 (00:24→13:36)
[2017-11-18] MEDS ORDERED: HEPARIN SOD (PORCINE) 1,000 UNIT/ML 10 ML VIAL IV PRN (05:00)
[2017-11-18] MEDS ORDERED: PARICALCITOL INJ/PF 5 MCG/1 ML SDV IV PRN (05:00)
[2017-11-18] MEDS ORDERED: EPOETIN ALFA INJ 20000 UNIT/1 ML VIAL (RENAL) IV PRN (05:00)
[2017-11-18 05:06] LABS: HEMOGLOBIN 9.4 g/dL (13.5-17.0); HGB HCT DIFFERENCE 1.2; MEAN CORPUSCULAR HEMOGLOBIN 30.3 pg (27.0-33.4); MEAN CORPUSCULAR HGB CONC 34.7 g/dL (32.0-36.0); MEAN CORPUSCULAR VOLUME 87 fl (80-97); RED CELL DISTRIBUTION WIDTH 14.9 % (11.5-14.0)
[2017-11-18 05:25] LABS: BLOOD UREA NITROGEN 95 mg/dL (7-20); CARBON DIOXIDE 21 mmol/L (22-30); CHLORIDE 100 mmol/L (98-107); CHOLESTEROL 114.09 mg/dL (0-200); Direct HDL 43 mg/dL (>40); GLUCOSE 107 mg/dL (75-110); MAGNESIUM 2.1 mg/dL (1.6-2.3); TRIGLYCERIDES 104 mg/dL (<150)
[2017-11-18 05:35] LABS: DIRECT LDL 41 mg/dL (<100)
[2017-11-18 05:40] LABS: CREATININE RESULT 15.69 mg/dL (0.52-1.25)
[2017-11-18 05:53] LABS: POTASSIUM 5.3 mmol/L (3.6-5.0); SODIUM 140.7 mmol/L (137-145)
[2017-11-18 05:55] LABS: ANION GAP 20 (5-19)
[2017-11-18] MEDS: HEPARIN SOD (PORCINE) 5,000 UNIT/ML 1 ML SYRINGE SUBCUT SCH ×2 (06:22→14:10)
[2017-11-18] MEDS ORDERED: LISINOPRIL 5 MG TABLET PO SCH (10:00)
[2017-11-18 10:21] VITALS: BP 151/87
[2017-11-18] MEDS: CALCIUM ACETATE 667 MG CAPSULE PO SCH (13:32)
[2017-11-18] MEDS: ASPIRIN 325 MG TABLET PO SCH (13:32)
[2017-11-18] MEDS: PREGABALIN 50 MG CAPSULE PO SCH (13:34)
[2017-11-18] MEDS: METOPROLOL TARTRATE 50 MG TABLET PO SCH (13:35)
[2017-11-18] MEDS: GUAIFENESIN 600 MG TABLET.SA PO SCH (13:35)
[2017-11-18] MEDS: DOCUSATE SODIUM 100 MG CAPSULE PO SCH (13:35)
[2017-11-18] MEDS: FUROSEMIDE 40 MG TABLET PO SCH (13:36)
[2017-11-18] MEDS ORDERED: LEVOFLOXACIN 750 MG TABLET PO ONE (16:00)
--- NOTE | 2017-11-18 16:43 | PDOC DISCHARGE SUMMARY ---
General - Admit/Disc Date/PCP Admission Date/Primary Care Provider: 11/17/17 02:36 YULIA BRUCE MD Discharge Date: 11/18/17 - Discharge Diagnosis (1) Healthcare-associated pneumonia Is this a current diagnosis for this admission?: Yes (2) Acute pulmonary edema Is this a current diagnosis for this admission?: Yes (3) Anemia in chronic kidney disease, on chronic dialysis Is this a current diagnosis for this admission?: Yes (4) ESRD needing dialysis Is this a current diagnosis for this admission?: Yes (5) Hypertensive emergency Is this a current diagnosis for this admission?: Yes (6) Impaired fasting glucose Is this a current diagnosis for this admission?: Yes (7) NEGRITO (obstructive sleep apnea) Is this a current diagnosis for this admission?: Yes (8) Coronary artery disease Is this a current diagnosis for this admission?: Yes (9) Hyperkalemia Is this a current diagnosis for this admission?: Yes (10) Severe obesity (BMI 35.0-35.9 with comorbidity) Is this a current diagnosis for this admission?: Yes (11) Elevated troponin Is this a current diagnosis for this admission?: Yes - Additional Information Resuscitation Status: Full Code Discharge Diet: As Tolerated, Cardiac Discharge Activity: Activity As Tolerated, Slowly Increase Activity Prescriptions: Guaifenesin [Mucinex Sr 600 mg Tablet.sa] 600 mg PO Q12 #30 tablet.sa Ipratropium/Albuterol Sulfate [Duoneb 3 ml Ampul] 3 ml NEB RTQ8HP PRN #90 vial.neb PRN Reason: Levofloxacin [Levaquin 750 mg Tablet] 750 mg PO Q48H #7 tablet Methylprednisolone [Medrol Dosepack (4 mg/Tab) 21 Tab/Dosepak] 4 mg PO ASDIR PRN #21 tab.ds.pk PRN Reason: Nebulizer [Aeroeclipse II] 1 each MC ASDIR PRN #1 each PRN Reason: Home Medications: Aspirin [Aspirin EC] 81 mg PO DAILY 11/17/17 Aspirin/Sod Bicarb/Citric Acid [Demetria-Verdigre Original Tab Eff] 1 each PO BIDP PRN 11/17/17 Calcium Acetate [Phoslo 667 mg Capsule] 2,001 mg PO MEALS 11/17/17 Calcium Acetate [Phoslo 667 mg Capsule] 667 mg PO BIDP PRN 11/17/17 Cholecalciferol (Vitamin D3) [Vitamin D3 5000 unit Capsule] 5,000 unit PO DAILY 11/17/17 Cyclobenzaprine HCl [Flexeril 5 mg Tablet] 5 mg PO HSP PRN 11/17/17 Desoximetasone [Topicort] 1 applic TP Q48H 11/17/17 Evolocumab [Repatha Pushtronex] 420 mg SQ ASDIR 11/17/17 Febuxostat [Uloric 80 mg Tablet] 80 mg PO DAILY 11/17/17 Fluticasone Propionate [Flonase Nasal [place] 50 Mcg/[place] 16 gm] 2 sprays NASL DAILYP PRN 11/17/17 Furosemide [Lasix 40 mg Tablet] 40 mg PO BID 11/17/17 Lidocaine [Lidoderm 5% (700 mg) Transdermal Patch] 1 patch TP DAILYP PRN Lisinopril [Prinivil 2.5 mg Tablet] 2.5 mg PO DAILY 11/17/17 Metoprolol Tartrate [Lopressor 50 mg Tablet] 50 mg PO Q12 11/17/17 Oxycodone HCl/Acetaminophen [Percocet 10-325 mg Tablet] 1 each PO QIDP PRN 11/17 Pantoprazole Sodium [Protonix] 40 mg PO QAM 11/17/17 Pregabalin [Lyrica 50 mg Capsule] 50 mg PO DAILY 11/17/17 Triamcinolone Acetonide [Aristocort 0.1% Cream] 1 applic TP Q48H 11/17/17 Guaifenesin [Mucinex Sr 600 mg Tablet.sa] 600 mg PO Q12 #30 tablet.sa 11/18/17 Ipratropium/Albuterol Sulfate [Duoneb 3 ml Ampul] 3 ml NEB RTQ8HP PRN #90 vial.neb 11/18/17 Levofloxacin [Levaquin 750 mg Tablet] 750 mg PO Q48H #7 tablet 11/18/17 Methylprednisolone [Medrol Dosepack (4 mg/Tab) 21 Tab/Dosepak] 4 mg PO ASDIR PRN #21 tab.ds.pk 11/18/17 Nebulizer [Aeroeclipse II] 1 each MC ASDIR PRN #1 each 11/18/17 History of Present Illness History of Present Illness: Per H&P by Dr. Kraft: RHYS BUCK is a 67 year old male with a past medical history of hypertension, obstructive sleep apnea, GERD, diverticulitis who presents to the emergency department with acute shortness of breath. Patient reports that he dialyzed normally on Thursday. He denied any difficulty with this. He reports that he has only been gaining less than half a kilo in between his dialysis sessions. Patient woke this evening while on his CPAP and found himself to be acutely short of breath. Upon arrival to the emergency department patient was found to be hypertensive with systolic blood pressure reported to be 198/102 and saturating 57%. He was placed on BiPAP and given Nitropaste with improvement. He is referred to the hospitalist service for hypertensive emergency and volume overload. Hospital Course Hospital Course: The patient was admitted for hypertensive emergency with volume overload. He was treated with Nitropaste, as needed Hydralazine, and IV furosemide. His respiratory status improved significantly with gentle diuresis and BiPAP. He was additionally placed on renally dosed Levaquin for a healthcare associated pneumonia and supported with p.o. steroids and nebulizer treatments as needed. 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 Bruce, was consulted and arranged for the patient to be dialyzed while admitted. He was noted to have an elevation of troponin determined to be a Type II non- STEMI elevation related to acute cardiac ischemia secondary to his hypertensive urgency and pulmonary edema. An echocardiogram was obtained demonstrating LVEF 65% with a mild diastolic dysfunction. Of note, the patient underwent cardiac catheterization in April of 2017 at [facility] which showed left ventricular ejection fraction of 60-65% in the right dominant coronary system with minimal luminal irregularities throughout the coronaries. At time of discharge, the patient is asymptomatic and stable for discharge to home with self-care. The patient will resume his normal dialysis scheduling of Thursday, , Thursday beginning tomorrow morning. He is recommended to continue antibiotic therapy for a total of 14 days of Levaquin and to follow-up with his primary care provider within 1-2 weeks. Physical Exam Vital Signs: Temp Pulse Resp BP Pulse Ox 97.6 F 65 18 151/87 H 98 11/18/17 15:05 11/18/17 15:05 11/18/17 15:05 11/18/17 15:05 11/18/17 15:05 Intake & Output 11/17/17 11/18/17 11/19/17 06:59 06:59 06:59 Intake Total 3 1225 Output Total 1810 Balance 3 -585 Weight 110.9 kg 111 kg General appearance: PRESENT: no acute distress, obese, well-developed, well- nourished Head exam: PRESENT: atraumatic, normocephalic Eye exam: PRESENT: conjunctiva pink, EOMI, PERRLA. ABSENT: scleral icterus Ear exam: PRESENT: normal external ear exam Mouth exam: PRESENT: moist, tongue midline Neck exam: ABSENT: carotid bruit, JVD, lymphadenopathy, thyromegaly Respiratory exam: PRESENT: clear to auscultation ramesh, decreased breath sounds - bibasilar, symmetrical, unlabored. ABSENT: rales, rhonchi, wheezes Cardiovascular exam: PRESENT: RRR, +S1, +S2. ABSENT: diastolic murmur, rubs, systolic murmur, tachycardia Pulses: PRESENT: normal dorsalis pedis pul Vascular exam: PRESENT: normal capillary refill GI/Abdominal exam: PRESENT: normal bowel sounds, soft. ABSENT: distended, guarding, mass, organolmegaly, rebound, tenderness Rectal exam: PRESENT: deferred Extremities exam: PRESENT: full ROM. ABSENT: calf tenderness, clubbing, pedal edema Neurological exam: PRESENT: alert, awake, oriented to person, oriented to place , oriented to time, oriented to situation, CN II-XII grossly intact. ABSENT: motor sensory deficit Psychiatric exam: PRESENT: appropriate affect, normal mood. ABSENT: homicidal ideation, suicidal ideation Skin exam: PRESENT: dry, intact, warm. ABSENT: cyanosis, rash Results Laboratory Results: 11/18/17 04:50 11/18/17 04:50 11/18/17 11/18/17 11/18/17 04:50 04:50 07:33 WBC 9.0 RBC 3.10 L Hgb 9.4 L Hct 27.0 L MCV 87 MCH 30.3 MCHC 34.7 RDW 14.9 H Plt Count 199 Sodium 140.7 Potassium 5.3 H Chloride 100 Carbon Dioxide 21 L Anion Gap 20 H BUN 95 H Creatinine 15.69 H Est GFR ( Amer) 4 L Est GFR (Non-Af Amer) 3 L Glucose 107 Calcium 10.0 Phosphorus 6.0 H Magnesium 2.1 Triglycerides 104 Cholesterol 114.09 LDL Cholesterol Direct 41 VLDL Cholesterol 21.0 HDL Cholesterol 43 Stool Occult Blood POSITIVE 11/17/17 11/17/17 11/17/17 07:10 07:10 12:41 Creatine Kinase 521 H 631 H CK-MB (CK-2) 3.20 Troponin I 0.182 11/17/17 11/17/17 11/17/17 12:41 18:50 18:50 Creatine Kinase 676 H CK-MB (CK-2) 3.56 3.33 Troponin I 0.150 0.121 Impressions: Chest X-Ray 11/17/17 00:29 IMPRESSION: [id number] bilateral lower lobar pneumonia. Differential diagnosis includes pulmonary edema. 2010 [employer]- All Rights Reserved Qualifiers PATEINT BEING DISCHARGED WITH ANY OF THE FOLLOWING DIAGNOSIS?: No
--- NOTE | 2017-11-18 17:39 | PDOC PROGRESS REPORT ---
Subjective Progress Note for:: 11/18/17 Subjective:: I saw the patient during dialysis this morning at around 8:55 AM. He was looking much better and almost at his baseline state. He denies any shortness of breath nor chest pains. He tolerated dialysis except he had an episode of hypotension when we were doing ultrafiltration which we need to decrease afterwards he felt fine. Otherwise he did well. Reason For Visit: ESRD Physical Exam Vital Signs: Temp Pulse Resp BP Pulse Ox 97.6 F 65 18 151/87 H 98 11/18/17 15:05 11/18/17 15:05 11/18/17 15:05 11/18/17 15:05 11/18/17 15:05 Intake & Output 11/17/17 11/18/17 11/19/17 06:59 06:59 06:59 Intake Total 3 1225 Output Total 1810 Balance 3 -585 Weight 110.9 kg 111 kg Vital signs during dialysis: Blood pressure 192/91 and initiation of dialysis clear, heart rate of 67, blood flow rate of 400 mL/min, dialysate flow rate of 600 mL/min. Exam: General appearance: PRESENT: no acute distress, cooperative, well-developed, well-nourished Head exam: PRESENT: atraumatic, normocephalic Eye exam: PRESENT: conjunctiva pink, PERRLA. ABSENT: scleral icterus Neck exam: ABSENT: JVD Respiratory exam: PRESENT: Normal breath sounds. ABSENT: crackles, rales, rhonchi, unlabored, wheezes Cardiovascular exam: PRESENT: Regular rate rhythm -+S1, +S2. ABSENT: diastolic murmur, systolic murmur GI/Abdominal exam: PRESENT: normal bowel sounds, soft. ABSENT: guarding, mass, tenderness Extremities exam: Trace bilateral lower extremity edema Neurological exam: PRESENT: alert, awake, oriented to person, place and time. Skin exam: PRESENT: dry, warm, Results Laboratory Results: 11/18/17 04:50 11/18/17 04:50 11/18/17 11/18/17 11/18/17 04:50 04:50 07:33 WBC 9.0 RBC 3.10 L Hgb 9.4 L Hct 27.0 L MCV 87 MCH 30.3 MCHC 34.7 RDW 14.9 H Plt Count 199 Sodium 140.7 Potassium 5.3 H Chloride 100 Carbon Dioxide 21 L Anion Gap 20 H BUN 95 H Creatinine 15.69 H Est GFR ( Amer) 4 L Est GFR (Non-Af Amer) 3 L Glucose 107 Calcium 10.0 Phosphorus 6.0 H Magnesium 2.1 Triglycerides 104 Cholesterol 114.09 LDL Cholesterol Direct 41 VLDL Cholesterol 21.0 HDL Cholesterol 43 Stool Occult Blood POSITIVE 11/17/17 11/17/17 11/17/17 07:10 07:10 12:41 Creatine Kinase 521 H 631 H CK-MB (CK-2) 3.20 Troponin I 0.182 11/17/17 11/17/17 11/17/17 12:41 18:50 18:50 Creatine Kinase 676 H CK-MB (CK-2) 3.56 3.33 Troponin I 0.150 0.121 Impressions: Chest X-Ray 11/17/17 00:29 IMPRESSION: [id number] bilateral lower lobar pneumonia. Differential diagnosis includes pulmonary edema. 2010 [employer]- All Rights Reserved Assessment & Plan - Diagnosis (1) End stage renal disease Is this a current diagnosis for this admission?: Yes Plan: With associated mild pulmonary congestion on chest x-ray, we are doing hemodialysis today. We did dialysis today for 3 hours, using the patient's AV fistula, with 2 potassium bath, blood flow rate of 400 mL per minute, dialysate flow rate of 600 mL per minute, ultrafiltration 2-3 L as tolerated, supposed to have low dose heparin during the dialysis treatment but the pharmacy was unable to deliver the heparin on time and Procrit with 20,000 units during dialysis intravenously. (2) Hypertensive emergency Is this a current diagnosis for this admission?: Yes Plan: Blood pressure is improved currently. Resume his metoprolol on his current outpatient dose at 50 mg twice a day, and lisinopril 2.5 mg p.o. daily. Patient 's blood pressure remains to be uncontrolled we can either increase the lisinopril provided potassium does not go so high or start on either amlodipine or hydralazine orally. (3) Acute pulmonary edema Is this a current diagnosis for this admission?: Yes Plan: Likely due to hypertensive emergency as the patient does not really usually gained weight in between hemodialysis treatment. However that cannot be totally excluded. (4) Hyperkalemia Is this a current diagnosis for this admission?: Yes Plan: Hemodialysis should take care of this. (5) Anxiety Is this a current diagnosis for this admission?: Yes (6) Anemia in chronic kidney disease, on chronic dialysis Is this a current diagnosis for this admission?: Yes Plan: Agree with checking occult blood in the stool. We will resume his Epogen on dialysis. (7) Elevated troponin Is this a current diagnosis for this admission?: Yes Plan: Defer to primary care provider or cardiology. Patient was assessed to have non- STEMI but currently stable. Cardiac cath in April 2017 was virtually negative for significant stenosis requiring any intervention. (8) NEGRITO (obstructive sleep apnea) Is this a current diagnosis for this admission?: Yes (9) Coronary artery disease Qualifiers: Coronary Disease-Associated Artery/Lesion type: unspecified vessel or lesion type Circle vs. transplanted heart: [place] heart Associated angina: angina presence unspecified Qualified Code(s): I25.10 - Atherosclerotic heart disease of [place] coronary artery without angina pectoris Is this a current diagnosis for this admission?: Yes - Time Time with patient: 15-25 minutes
--- NOTE | 2017-11-19 00:23 | CONSULTATION REPORT E ---
Consultation Report NAME: RHYS BUCK : 1950 AGE: 67Y DATE: 11/18/2017 434 A TO: FLACA MULTANI M.D. FROM: MERLENE LAZARO M.D. Requesting Physician HISTORY OF PRESENT ILLNESS: The patient is a 67-year-old -[place] male with a history of hypertension, obstructive sleep apnea, using CPAP regularly, and end stage renal disease on hemodialysis who states that on Thursday, he had his usual dialysis and felt well but he woke up on Thursday while on the BiPAP/CPAP with severe shortness of breath and wheezing and his saturation went down to 55%. He came to the Emergency Room where he was found to have a blood pressure of 198/102 and his O2 sat was 57% before BiPAP was placed. His chest x-ray showed mild to moderate bilateral patchiness which is a combination of bilateral pneumonia and also congestive heart failure. The patient now feels much improved. The patient denies any chest pain or discomfort. There was PND and orthopnea present. There was mild leg edema but nothing major which has now subsided. The patient denies any palpitations or syncope. There is no clear cut anginal symptoms. PAST MEDICAL HISTORY: Positive for: 1. History of hypertension. 2. History of end stage renal disease on dialysis on Tuesdays, and Saturdays. 3. Morbid obesity. 4. History of hypertension. 5. Obstructive sleep apnea, uses CPAP. 4. There is no history of headaches, migraines or seizures. He has no history of hypothyroidism. 5. Note that the patient, in the past, was on Januvia for type 2 diabetes mellitus but this was stopped due to the hemoglobin A1c and he is on diet control only. 6. GERD. 7. Rheumatoid and psoriatic arthritis. 8. No history of TIA or CVA. 9. No history of anxiety or depression. 10. No history of GI bleed. 11. History of diverticulosis. 12. History of GERD. PAST SURGICAL HISTORY: 1. AV fistula placement. 2. Cardiac catheterization in April of 2017 which showed mild luminal irregularities. 3. Carpal tunnel syndrome and trigger finger release. 4. Hemorrhoidectomy. SOCIAL HISTORY: The patient has never smoked. There is no history of ETOH abuse. ADVANCED DIRECTIVE: THE PATIENT IS A FULL CODE. His is the surrogate healthcare decision maker. ALLERGIES: 1. IODINE. 2. NIACIN. 3. PENICILLINS. 4. HMG-COA REDUCTASE INHIBITOR. Hence, for his hyperlipidemia, he is on Repatha. 5. CONTRAST DYE. MEDICATIONS: Include: 1. Topicort 100 mL spray 1 application q. 48 hours. 2. Vitamin D3, 5000 unit capsule 1 p.o. daily. 3. Repatha 420 mg subcutaneously as directed. 4. Uloric 80 mg tablet p.o. daily. 5. Flexeril 5 mg p.o. h.s. p.r.n. 6. Aspirin 81 mg p.o. daily. 7. Aristocort 0.1 cream 15 g application 1 daily. 8. Protonix 40 mg p.o. q. a.m. 9. Demetria-Meade 1 each p.o. b.i.d. 10. Lasix 40 mg IV push x1. 11. Hypoglycemic precautions with glucose 40% gel 15 g and 30 g p.o. respectively. 12. Dextrose 50% 12.5 g and 25 g IV p.r.n. hypoglycemia. 13. Glucagon 1 mg intramuscularly p.r.n. hypoglycemia. 14. Accu-Cheks a.c. t.i.d. with sliding scale insulin coverage. 15. Nitrol 2% 1 g topically q. 6 hours. 16. Tylenol 650 mg p.o. q. 12 hours p.r.n. 17. Levaquin 750 mg p.o. q. 48 hours. 18. Heparin 5000 units subcutaneously q. 8 hours. 19. Hydralazine 10 mg IV q. 4 hours p.r.n. 20. He did get Lasix 40 mg IV x1 in the Emergency Room. 21. Phoslo 1334 mg p.o. meals. 22. Flonase 2 sprays daily p.r.n. 23. Lidoderm 5% transdermal patch 1 patch topically daily. 24. Oxycodone/acetaminophen 10/325 mg 1 p.o. q.i.d. p.r.n. 25. He did get Lovenox 110 mg subcutaneously daily. 26. Lyrica 50 mg p.o. daily. 27. Lisinopril 2.5 mg p.o. daily. 28. Metoprolol 25 mg p.o. q. 12 hours. 29. Lasix 40 mg p.o. b.i.d. 30. Mucinex 600 mg p.o. q. 12 hours. 31. Metoprolol tartrate 50 mg p.o. q. 12 hours. REVIEW OF SYSTEMS: CONSTITUTIONAL: Denies any fevers, chills or rigors. Complains of generalized fatigue, especially after the symptoms started on Thursday. HEAD: Without any headaches or head injury. EYES: No history of amblyopia or diplopia. He does have some cataracts. There is no amaurosis fugax. EARS: No history of hearing loss. No history of tinnitus. No history of recurrent ear infection. NOSE: History of nasal allergies but no history of hay fever. No history of nosebleeds. MOUTH: No altered taste sensation. No ulcers in the mouth. No bleeding from the gums. THROAT: No odynophagia or dysphagia. No history of recurrent sore throats. SKIN: Has a history of psoriasis. There is no skin cancer. There are no skin lesions or rashes. NECK: Denies any neck pain. No lymphadenopathy. No goiter. LUNGS: Recent symptoms of wheezing and symptoms suggestive of pneumonia. The patient has no history of COPD or asthma. There is no history of pulmonary embolism. No history of pleuritic chest pain. No hemoptysis. History of obstructive sleep apnea on CPAP. CARDIAC: History of hypertension. No history of coronary artery disease. He had a cardiac catheterization which showed just luminal irregularities in 04/2017. The patient has no clear cut angina. No history of VA. History of recent admission for congestive heart failure due to uncontrolled blood pressure. No history of palpitations or syncope. He did have some mild leg edema. He does have some orthopnea and PND but these have resolved. GASTROINTESTINAL: History of GERD. History of diverticulosis. No history of GI bleed. History of hemorrhoids present. No history of fatty food intolerance. No history of jaundice. No history of abdominal pain. No history of cirrhosis. MUSCULOSKELETAL: History of rheumatoid arthritis and psoriatic arthritis. He has chronic back pain and takes medication for that. RENAL: History of end stage renal disease on hemodialysis. The patient is on the transplant list for renal transplant. CENTRAL NERVOUS SYSTEM: No history of seizures, headaches or migraines. No history of TIA or CVA. No history gait imbalance. History of sleep apnea on CPAP. PSYCHIATRIC: No history of anxiety or depression. No history of suicidal or homicidal ideation. VASCULAR: No history of calf or buttock claudication. No history of DVT. HEMATOLOGICAL: No history of bleeding diathesis or clotting disorders. ENDOCRINE: Past history of diabetes mellitus. At present, he is diet controlled without any medication. No history of thyroid disease. No history of polydipsia, polyuria. No history of heat or cold intolerance. PHYSICAL EXAMINATION: GENERAL: At present, the patient is in no acute distress. He is moderately obese. He is on nasal cannula 2 L. VITAL SIGNS: His temperature is 97.6. Pulse is 65 beats per minute. Blood pressure is 157/87. Respirations are 18 per minute. O2 sats are 98% on 2 L nasal cannula. HEENT: Head is atraumatic and normocephalic. Eyes: Pupils are equal, round, regular, reactive to light and accommodation. Extraocular movements are normal. There is no conjunctival pallor. There is no scleral icterus. Ears: Tympanic membranes are intact. External auditory canals are clear. Nose: There is no deviated nasal septum. There is no inflammation of the nasal mucous membranes. Mouth: Mucous membranes of the mouth are moist. Tongue is moist. There are no ulcers. There is no bleeding from the gums. Throat: There is no redness of the oropharynx. There are no exudates. SKIN: There are some lesions of psoriasis. There is no petechia or ecchymosis. There are no skin lesions. NECK: Supple. There is no JVD. Carotids are equal. There is no bruit. There is no lymphadenopathy. There is no goiter. Trachea central. LUNGS: There are bilateral dry crackles and at present, no rales of CHF, which seems to have compensated. There is no chest wall tenderness. HEART: S1 and S2 is heard. There is no S3 gallop. There is no S4 gallop. There is a systolic murmur in the left sternal border on the apex. There is no rub. ABDOMEN: Soft and nontender. There is no hepatosplenomegaly. Bowel sounds are well heard. There are no tender areas or masses. There is no rebound, guarding rule out rigidity. EXTREMITIES: Femorals are deep. Femorals are decreased. There are no femoral bruits. Leg pulses are diminished. There is no pedal edema at present. There is no DVT or cellulitis. There is no calf tenderness. CENTRAL NERVOUS SYSTEM: The patient is conscious, alert and oriented x3 with no focal deficits. PSYCHIATRIC: The patient's judgment and insight are intact. His affect is normal. DIAGNOSTICS: *------* abnormality. Nonspecific lateral ST-T changes which are minor. His echocardiogram shows that the left ventricle is of normal size. There is mild asymmetric left ventricular hypertrophy without any evidence of HOCM. Systolic function is normal. There is mild LV diastolic dysfunction. Ventricular wall motion is normal. The patient's right ventricle is not very well visualized. Mitral valve shows no mitral valve stenosis. There is trace to mild amount of mitral regurgitation. There is mild aortic stenosis, peak gradient of 19 mmHg. There is no aortic regurgitation present. There is a moderate amount of tricuspid regurgitation. There is mild pulmonary hypertension by echo. Right ventricular systolic pressure is 44 mmHg with an RA mean of 10. There is no pericardial effusion. The patient's white count is 9000; hemoglobin is 9.4; hematocrit is 27; and platelet count is 199,000. The patient's sodium is 140.7, potassium 5.3, chloride 100, CO2 is 21. The patient's BUN is 95, creatinine is 15.69, GFR is reduced at 4 which is end stage renal disease. His hemoglobin A1c was 6. His calcium is 10, phosphorus 6, and his magnesium is 2.1. The patient's initial troponin I was 0.040 and then went up to 0.12 and has come down to 0.150 and then 0.121. The patient's stool occult blood is positive. IMPRESSION: 1. Hypertensive emergency. At present, blood pressure well controlled. Patient is to continue his lisinopril and his metoprolol. 2. Elevated troponin I secondary to hypertensive emergency and also CHF and hypoxia. 3. Pneumonia, looks like bilateral. 4. Pulmonary edema secondary to malignant hypertension. 5. Acute respiratory failure with hypoxemia, contributing to the patient's elevation of troponin I. 6. Obstructive sleep apnea. The patient is on CPAP. Most likely, the patient has bilateral pneumonia. 7. Anemia of chronic disease. 8. Diet-controlled diabetes mellitus. 9. End stage renal disease on hemodialysis. 10. No significant coronary artery disease. 11. Hyperkalemia secondary to acute renal failure. 12. History of rheumatoid arthritis and psoriatic arthritis. RECOMMENDATIONS: 1. Continue the patient on the current medications. 2. Would continue the patient on antibiotics. 3. Would continue the patient on aspirin. 4. Would recheck the patient's stool and make sure that the patient's stool is not occult blood positive. 5. Note the non-ST elevation VA is a type 2 VA secondary to supply-demand mismatch and not a non-STEMI or type 1 myocardial infarction. Would not treat this as a non-STEMI. 6. Continue his antihypertensive. 7. Continue dialysis. 8. Continue his renal replacement. 9. Continue his other current medications. 10. Would recommend patient have a cardiology followup. The patient is following with Dr. Irizarry. 11. Note that the patient's cardiac catheterization report has been discussed with the patient. TIME SPENT: Note the patient was seen at 10:00 a.m. Forty-five minutes was spent on this patient with more than 50% of the time spent on direct patient care. His medications have been reviewed and the case discussed with the other physicians on the case. DISPOSITION: The patient is stable to be discharged. This has been relayed to the hospitalist nurse practitioner taking care of the patient. The patient has been given my cell number and he will followup with me. In view of the patient's elevated troponin I and the patient's pneumonia and other comorbid conditions, the medical discomfort making is of high complexity. The patient has been given my number to call me if there are any problems. DICTATING PHYSICIAN: FLACA MULTANI M.D. [id number] PHY#: [id number] ID: [id number] JOB#: [id number] ACCT: [id number] cc:FLACA MULTANI M.D. >
== END 2017-11-18 17:10 | disposition home or self-care (01) | DRG 193 ==
LOC: ER 00:14 → EH 02:36 → 4S 03:34
PROVIDERS: ADMIT Family Medicine; ATTEND Family Medicine
PROC: 5A09357 Assistance with Respiratory Ventilation, Less than 24 Consecutive Hours, Continuous Positive Airway Pressure (ICD-10-PCS; 2017-11-17)
PROC: 3E0F73Z Introduction of Anti-inflammatory into Respiratory Tract, Via Natural or Artificial Opening (ICD-10-PCS; 2017-11-17)
PROC: 5A1D70Z Performance of Urinary Filtration, Intermittent, Less than 6 Hours Per Day (ICD-10-PCS; principal; 2017-11-18)
DX: J18.9 Pneumonia, unspecified organism (principal); N18.6 End stage renal disease; I21.A1 Myocardial infarction type 2; J96.01 Acute respiratory failure with hypoxia; I16.1 Hypertensive emergency; I12.0 Hypertensive chronic kidney disease with stage 5 chronic kidney disease or end stage renal disease; N17.9 Acute kidney failure, unspecified; I24.9 Acute ischemic heart disease, unspecified; D63.1 Anemia in chronic kidney disease; R73.01 Impaired fasting glucose; I16.0 Hypertensive urgency; K21.9 Gastro-esophageal reflux disease without esophagitis; G47.33 Obstructive sleep apnea (adult) (pediatric); I25.10 Atherosclerotic heart disease of native coronary artery without angina pectoris; E87.5 Hyperkalemia; E66.01 Morbid (severe) obesity due to excess calories; Z68.35 Body mass index [BMI] 35.0-35.9, adult; E11.22 Type 2 diabetes mellitus with diabetic chronic kidney disease; M06.9 Rheumatoid arthritis, unspecified; K57.90 Diverticulosis of intestine, part unspecified, without perforation or abscess without bleeding; I51.7 Cardiomegaly; I08.1 Rheumatic disorders of both mitral and tricuspid valves; L40.50 Arthropathic psoriasis, unspecified; F41.9 Anxiety disorder, unspecified; Z99.2 Dependence on renal dialysis; Z79.899 Other long term (current) drug therapy; Z88.0 Allergy status to penicillin; Z88.8 Allergy status to other drugs, medicaments and biological substances; Z91.041 Radiographic dye allergy status; Z79.82 Long term (current) use of aspirin; Z84.1 Family history of disorders of kidney and ureter; Z83.3 Family history of diabetes mellitus; Z80.49 Family history of malignant neoplasm of other genital organs; Z82.49 Family history of ischemic heart disease and other diseases of the circulatory system
CPT/HCPCS: 36415; 71010; 80048; 80053; 80061; 81001; 82272; 82533; 82550; 82553; 83036; 83735; 84100; 84439; 84443; 84484; 85025; 85027; 85610; 85730; 87040; 93005; 93010; 93306; 94660; 96374; 99285; J0360; J1644; J1940; J3490; Q4081

== ENCOUNTER 2018-05-14 15:42 | Emergency (ER) | payer MEDICARE, OTHER ==
--- NOTE | 2018-05-14 16:07 | ER Document Report ---
ED Medical Screen (RME) - General Chief Complaint: Blood Pressure Problem Stated Complaint: BLOOD PRESSURE ISSUE Time Seen by Provider: 05/14/18 16:00 Notes: RAPID MEDICAL EVALUATION DISCLOSURE I have seen this patient as part of a Rapid Medical Evaluation and, if applicable, placed any initially appropriate orders. The patient will be seen and fully evaluated, including a full history and physical exam, by a provider ( in Main ED or Fast Track) when a room becomes available. 67-year-old male PMH end-stage renal disease (last dialysis session Thursday) here with complaints of palpitations since yesterday. He went to dialysis yesterday but they were unable to access his graft/fistula so he did not get dialysis yesterday. He does not have any chest pain tightness discomfort shortness of breath. His blood pressure was high today and it is usually 140s- 150s systolic baseline for him. He called his video game creator who told him to take an extra 50 mg metoprolol and 5 mg lisinopril which he took approximately 6 hours ago however it still remains elevated approximately 240 systolic. exam CTAB RRR TRAVEL OUTSIDE OF THE [place] IN LAST 30 DAYS: No - Related Data Allergies/Adverse Reactions: iodine [Iodine] Allergy (Severe, Verified 05/14/18 15:43) hives/skin hot niacin [Niacin] Allergy (Severe, Verified 05/14/18 15:43) flushed Penicillins Allergy (Severe, Verified 05/14/18 15:43) rash Pdimeyw-Yih-Vlb Reductase Inhibitor Allergy (Severe, Verified 05/14/18 15:43) muscle pain,elevated enzymes contrast dye Allergy (Mild, Uncoded 05/14/18 15:43) Hives Past Medical History - Past Medical History Cardiac Medical History: Reports: Hx Coronary Artery Disease, Hx Hypercholesterolemia, Hx Hypertension - tx since 1997 Denies: Hx Heart Attack Pulmonary Medical History: Reports: Hx Sleep Apnea - On CPAP Denies: Hx Asthma, Hx Bronchitis, Hx COPD, Hx Pneumonia Neurological Medical History: Reports: Hx Seizures - when on dialysis pt states staff tells him has shaking. Denies: Hx Cerebrovascular Accident Endocrine Medical History: Reports: Hx Diabetes Mellitus Type 2 Renal/ Medical History: Reports: Hx End Stage Renal Disease. Denies: Hx Peritoneal Dialysis - hemo GI Medical History: Reports: Hx Gastroesophageal Reflux Disease Musculoskeltal Medical History: Reports Hx Arthritis - RA ,psoriatic, Reports Hx Gout Skin Medical History: Reports Hx Psoriasis Psychiatric Medical History: Denies: Hx Depression Past Surgical History: Reports: Hx Cardiac Catheterization - Last done in May 11, 2017, Hx Orthopedic Surgery - CARPAL TUNNEL, TRIGGER FINGER, Hx Vascular Surgery - L LOWER ARM SHUNT, Other - Hemorrhoidectomy. Denies: Hx Pacemaker - Immunizations Hx Diphtheria, Pertussis, Tetanus Vaccination: Yes History of Influenza Vaccine for 08/2017 - 01/2018 Season: Yes Influenza Administration Date for 08/2017 - 01/2018 Season: 09/08/17 Physical Exam - Vital signs Vitals: Temp Pulse Resp BP Pulse Ox 98.2 F 72 16 205/100 H 94 05/14/18 15:47 05/14/18 15:47 05/14/18 15:47 05/14/18 15:47 05/14/18 15:47 Course - Vital Signs Vital signs: Temp Pulse Resp BP Pulse Ox 98.2 F 72 16 205/100 H 94 05/14/18 15:47 05/14/18 15:47 05/14/18 15:47 05/14/18 15:47 05/14/18 15:47 Doctor's Discharge - Discharge Referrals: YULIA BRUCE MD [Primary Care Provider] - Follow up as needed
[2018-05-14 16:40] LABS: HEMOGLOBIN 10.2 g/dL (13.5-17.0); MEAN CORPUSCULAR HEMOGLOBIN 29.8 pg (27.0-33.4); MEAN CORPUSCULAR HGB CONC 33.9 g/dL (32.0-36.0); MEAN CORPUSCULAR VOLUME 88 fl (80-97); PLATELET COUNT 297 10^3/uL (150-450); RED BLOOD COUNT 3.41 10^6/uL (4.35-5.55); RED CELL DISTRIBUTION WIDTH 14.5 % (11.5-14.0)
--- NOTE | 2018-05-14 16:41 | RADIOLOGY REPORT (SQ) ---
EXAM DESCRIPTION: CHEST 2 VIEWS COMPLETED DATE/TIME: 05/14/2018 4:32 pm REASON FOR STUDY: palpitations COMPARISON: 08/13/2016. EXAM PARAMETERS: NUMBER OF VIEWS: two views TECHNIQUE: Digital Frontal and Lateral radiographic views of the chest acquired. RADIATION DOSE: NA LIMITATIONS: none FINDINGS: LUNGS AND PLEURA: No opacities, masses or pneumothorax. No pleural effusion. MEDIASTINUM AND HILAR STRUCTURES: No masses or contour abnormalities. HEART AND VASCULAR STRUCTURES: Mild cardiac enlargement. Mild vascular congestion. BONES: No acute findings. HARDWARE: None in the chest. OTHER: No other significant finding. IMPRESSION: MILD CARDIAC ENLARGEMENT WITH MILD VASCULAR CONGESTION. TECHNICAL DOCUMENTATION: JOB ID: [id number] [employer]- All Rights Reserved Reading location - IP/workstation name: [email or web address]
[2018-05-14 16:49] LABS: ALANINE AMINOTRANSFERASE 28 U/L (21-72); ALBUMIN 4.2 g/dL (3.5-5.0); ALKALINE PHOSPHATASE 65 U/L (38-126); ANION GAP 17 (5-19); ASPARTATE AMINO TRANSFERASE 30 U/L (17-59); BILIRUBIN,DIRECT 0.3 mg/dL (0.0-0.4); BILIRUBIN,TOTAL 0.3 mg/dL (0.2-1.3); BLOOD UREA NITROGEN 80 mg/dL (7-20); CALCIUM 10.3 mg/dL (8.4-10.2); CARBON DIOXIDE 26 mmol/L (22-30); CHLORIDE 101 mmol/L (98-107); GLUCOSE 101 mg/dL (75-110); PHOSPHORUS 4.7 mg/dL (2.5-4.5); POTASSIUM 5.7 mmol/L (3.6-5.0); SODIUM 144.2 mmol/L (137-145); TOTAL PROTEIN 6.9 g/dL (6.3-8.2)
[2018-05-14] MEDS ORDERED: ACETAMINOPHEN 325 MG TABLET PO ONE (16:52)
--- NOTE | 2018-05-14 16:52 | ER Document Report ---
ED General - General Chief Complaint: Blood Pressure Problem Stated Complaint: BLOOD PRESSURE ISSUE Time Seen by Provider: 05/14/18 16:00 Notes: The patient is a 67-year-old male, past medical history ESRD ([facility]), HTN, presents from home after his blood pressure was found to be 200s over 100s. He also has a dull frontal headache that gradually started. Patient had to miss his dialysis yesterday due to swelling around his left upper extremity fistula site, but has dialysis scheduled for tomorrow morning. Despite the nursing, the patient denies any chest pain at all during these episodes. He called his decontaminator, Dr. Bruce, elected him to an additional dose of his lisinopril and metoprolol, but his blood pressure did not come down. Patient denies focal weakness, numbness, tingling, back pain, shortness of breath, increased swelling , fevers, cough, hemoptysis or abdominal pain. TRAVEL OUTSIDE OF THE [place] IN LAST 30 DAYS: No - Related Data Allergies/Adverse Reactions: iodine [Iodine] Allergy (Severe, Verified 05/14/18 15:43) hives/skin hot niacin [Niacin] Allergy (Severe, Verified 05/14/18 15:43) flushed Penicillins Allergy (Severe, Verified 05/14/18 15:43) rash Xshxian-Wic-Xzv Reductase Inhibitor Allergy (Severe, Verified 05/14/18 15:43) muscle pain,elevated enzymes contrast dye Allergy (Mild, Uncoded 05/14/18 15:43) Hives Past Medical History - General Information source: Patient - Social History Smoking Status: Never Smoker Frequency of alcohol use: Rare Drug Abuse: None Family History: DM, Hypertension, Other - Chronic kidney disease Patient has suicidal ideation: No Patient has homicidal ideation: No - Past Medical History Cardiac Medical History: Reports: Hx Coronary Artery Disease, Hx Hypercholesterolemia, Hx Hypertension - tx since 1997 Denies: Hx Heart Attack Pulmonary Medical History: Reports: Hx Sleep Apnea - On CPAP Denies: Hx Asthma, Hx Bronchitis, Hx COPD, Hx Pneumonia Neurological Medical History: Reports: Hx Seizures - when on dialysis pt states staff tells him has shaking. Denies: Hx Cerebrovascular Accident Endocrine Medical History: Reports: Hx Diabetes Mellitus Type 2 Renal/ Medical History: Reports: Hx End Stage Renal Disease. Denies: Hx Peritoneal Dialysis - hemo GI Medical History: Reports: Hx Gastroesophageal Reflux Disease Musculoskeltal Medical History: Reports Hx Arthritis - RA ,psoriatic, Reports Hx Gout Skin Medical History: Reports Hx Psoriasis Psychiatric Medical History: Denies: Hx Depression Past Surgical History: Reports: Hx Cardiac Catheterization - Last done in May 11, 2017, Hx Orthopedic Surgery - CARPAL TUNNEL, TRIGGER FINGER, Hx Vascular Surgery - L LOWER ARM SHUNT, Other - Hemorrhoidectomy. Denies: Hx Pacemaker - Immunizations Hx Diphtheria, Pertussis, Tetanus Vaccination: Yes Hx Pneumococcal Vaccination: 11/30/09 Review of Systems - Review of Systems Notes: REVIEW OF SYSTEMS: CONSTITUTIONAL: -fevers, -chills EENT: -eye pain, -difficulty swallowing, -nasal congestion CARDIOVASCULAR: -chest pain, -syncope. RESPIRATORY: -cough, -SOB GASTROINTESTINAL: -abdominal pain, -nausea, -vomiting, -diarrhea GENITOURINARY: -dysuria, -hematuria MUSCULOSKELETAL: -back pain, -neck pain SKIN: -rash or skin lesions. HEMATOLOGIC: -easy bruising or bleeding. LYMPHATIC: -swollen, enlarged glands. NEUROLOGICAL: -altered mental status or loss of consciousness, +headache, - neurologic symptoms PSYCHIATRIC: -anxiety, -depression. ALL OTHER SYSTEMS REVIEWED AND NEGATIVE. Physical Exam - Vital signs Vitals: Temp Pulse Resp BP Pulse Ox 98.2 F 72 16 205/100 H 94 05/14/18 15:47 05/14/18 15:47 05/14/18 15:47 05/14/18 15:47 05/14/18 15:47 - Notes Notes: PHYSICAL EXAMINATION: GENERAL: Well-appearing, well-nourished and in no acute distress. HEAD: Atraumatic, normocephalic. EYES: Pupils equal round and reactive to light, extraocular movements intact, sclera anicteric, conjunctiva are normal. ENT: nares patent, oropharynx clear without exudates. Moist mucous membranes. NECK: Normal range of motion, supple without lymphadenopathy LUNGS: Breath sounds clear to auscultation bilaterally and equal. No wheezes rales or rhonchi. HEART: Regular rate and rhythm without murmurs ABDOMEN: Soft, nontender, normoactive bowel sounds. No guarding, no rebound. No masses appreciated. EXTREMITIES: Left lower arm AV fistula with good thrill and bruit. Mild swelling around the fistula. No warmth or erythema. Normal range of motion, no pitting or edema. No cyanosis. NEUROLOGICAL: Cranial nerves grossly intact. Normal speech, normal gait. Normal sensory and motor exams. PSYCH: Normal mood, normal affect. SKIN: Warm, Dry, normal turgor, no rashes or lesions noted. Course - Re-evaluation Re-evalutation: Patient with hypertension and dull mild frontal headache. He appears well. No focal neuro signs on physical exam. Blood work does not show any need for immediate emergent dialysis. His potassium is 5.7, but there are no EKG changes. He has dialysis scheduled tomorrow morning. 05/14/18 17:07 Spoke to the patient's decontaminator, Dr. Bruce, recommends increasing his lisinopril 10 mg daily and helping to bring his blood pressure down. He is safe for dialysis tomorrow morning. Pt's BP was 144/83 and completely asymptomatic. Will discharge patient home with dialysis tomorrow and instructions to increase his lisinopril to 10 mg daily. - Vital Signs Vital signs: Temp Pulse Resp BP Pulse Ox 98.2 F 72 16 216/97 H 97 05/14/18 15:47 05/14/18 15:47 05/14/18 17:00 05/14/18 16:39 05/14/18 17:00 - Laboratory Result Diagrams: 05/14/18 16:20 05/14/18 16:20 Laboratory results interpreted by me: 05/14/18 05/14/18 16:20 16:20 RBC 3.41 L Hgb 10.2 L Hct 30.0 L RDW 14.5 H Lymphocytes % (Manual) 11 L Potassium 5.7 H BUN 80 H Creatinine 16.39 H Est GFR ( Amer) 4 L Est GFR (Non-Af Amer) 3 L Calcium 10.3 H Phosphorus 4.7 H - Diagnostic Test Radiology reviewed: Image reviewed, Reports reviewed Radiology results interpreted by me: CXR: MILD CARDIAC ENLARGEMENT WITH MILD VASCULAR CONGESTION. - EKG Interpretation by Me EKG shows normal: Sinus rhythm, [place], Intervals, QRS Complexes, ST-T Waves Rate: Normal When compared to previous EKG there are: No significant change Discharge - Discharge Clinical Impression: Hypertension Qualifiers: Hypertension type: unspecified Qualified Code(s): I10 - Essential (primary) hypertension Headache Qualifiers: Headache type: unspecified Headache chronicity pattern: unspecified pattern Intractability: not intractable Qualified Code(s): R51 - Headache Condition: Stable Disposition: HOME, SELF-CARE Additional Instructions: Increase your lisinopril to 10 mg daily. Keep your scheduled dialysis appointment tomorrow. HIGH BLOOD PRESSURE REQUIRING TREATMENT: Your blood pressure is high. This is called "hypertension." Your history and exam suggest that this is not a temporary problem. You need treatment of your blood pressure. If left untreated, high blood pressure greatly increases your risk of heart attack and stroke. Please don't ignore this problem. If you have blood pressure medicine but aren't using it regularly, start taking it again. Some simple things you can do to help are: Get some aerobic exercise for at least 20 minutes on a daily basis. (See your doctor before beginning any new exercise program.) Eat a low-fat diet. Lose excess weight. Avoid salty foods and avoid adding salt to any of the foods you eat. Avoid diet pills, decongestants, "energizing" herbs, and other medicines that elevate blood pressure. There are many different medicines that treat blood pressure. If your medication causes unpleasant side effects, call your doctor. There are others you can try. Treating hypertension is a life-long investment in your health. ANGIOTENSIN CONVERTING ENZYME INHIBITOR MEDICATION: "JOSE inhibitor" drugs are used to lower high blood pressure (or to reduce the "work" of the heart in patients with heart failure). These drugs block an enzyme that makes your blood vessels constrict and makes you retain salt. The result is lower blood pressure. JOSE inhibitors cause few side effects. The most common side effect is a dry nagging cough. Occasionally, lightheadedness may occur while you get used to the medicine. Some patients may retain extra potassium (this is a problem if you are taking potassium supplements, potassium-containing salt substitutes, or a potassium-retaining drug such as triamterene, spironolactone, or amiloride) . If you are taking lithium, the lithium level must be rechecked after starting an JOSE inhibitor. JOSE inhibitors should NOT be used during . Contact the doctor or return if you develop severe lightheadedness, wheeze , weakness, palpitations or other new symptoms. FOLLOW-UP CARE: If you have been referred to a physician for follow-up care, call the physician s office for an appointment as you were instructed or within the next two days. If you experience worsening or a significant change in your symptoms, notify the physician immediately or return to the Emergency Department at any time for re-evaluation. Forms: Elevated Blood Pressure Referrals: YULIA BRUCE MD [Primary Care Provider] - Follow up as needed
[2018-05-14] MEDS ORDERED: CLONIDINE HCL 0.2 MG TABLET PO ONE (16:59)
[2018-05-14 17:00] LABS: ABSOLUTE MONOCYTES # (MANUAL) 0.9 10^3/uL (0.1-1.4); ABSOLUTE NEUTROPHILS# (MANUAL) 6.8 10^3/uL (1.7-8.2); BASOPHILS % (MANUAL) 0 % (0-2); EOSINOPHILS % (MANUAL) 3 % (0-6); LYMPHOCYTES % (MANUAL) 11 % (13-45); MONOCYTES % (MANUAL) 10 % (3-13); SEGMENTED NEUTROPHILS % (MAN) 76 % (42-78); TOTAL CELLS COUNTED 100
[2018-05-14 17:01] LABS: TOXIC GRANULATION SLIGHT
[2018-05-14 17:02] LABS: ANISOCYTOSIS SLIGHT; PLATELET COMMENT ADEQUATE
[2018-05-14 18:20] VITALS: BP 144/84
--- NOTE | 2018-05-14 19:38 | EKG REPORT ---
SEVERITY:- NORMAL ECG - SINUS RHYTHM : Confirmed by: Del Kay MD 14-May-2018 19:38:01
== END 2018-05-14 18:20 | disposition home or self-care (01) ==
LOC: ER 15:42
DX: R51 Headache (principal); I12.0 Hypertensive chronic kidney disease with stage 5 chronic kidney disease or end stage renal disease; N18.6 End stage renal disease; Z99.2 Dependence on renal dialysis; Z88.0 Allergy status to penicillin; I25.10 Atherosclerotic heart disease of native coronary artery without angina pectoris; E78.00 Pure hypercholesterolemia, unspecified; E11.9 Type 2 diabetes mellitus without complications
CPT/HCPCS: 93005; 99284; 36415; 83735; 84100; 85025; 80053; 84484; 71046; 93010; A9270 ×2

== ENCOUNTER 2018-05-18 12:19 | Emergency (ER) | payer MEDICARE, OTHER ==
[2018-05-18] MEDS ORDERED: ONDANSETRON 4 MG TAB.RAPDIS PO ONE (14:45)
[2018-05-18] MEDS ORDERED: PROCHLORPERAZINE MALEATE 10 MG TABLET PO ONE (14:45)
[2018-05-18] MEDS ORDERED: ACETAMINOPHEN 325 MG TABLET PO ONE (14:45)
[2018-05-18 15:38] VITALS: BP 157/76
--- NOTE | 2018-05-18 15:43 | ER Document Report ---
ED General - General Chief Complaint: High Blood Pressure Stated Complaint: BLOOD PRESSURE ISSUES Time Seen by Provider: 05/18/18 14:29 TRAVEL OUTSIDE OF THE [place] IN LAST 30 DAYS: No - HPI Patient complains to provider of: Elevated blood pressure Notes: Patient coming in today for evaluation of headache and elevated blood pressure. Patient is end-stage renal disease patient on hemodialysis Saturdays. Patient states today I tried to get him below the his dry weight patient states whenever they attempt as he normally has significant cramps and feels very bad afterwards. Patient states this did occur today also is having headache. Patient states he was given a dose of clonidine because of his elevation of his blood pressure by his leather production machine operator at the dialysis suite however told to come to the ER for further evaluation. Patient states that he is going to be started on clonidine was given 6 tablets for next few days as a trial to see if they can better control his blood pressure. According to the at bedside for treating blood pressures has been issue with the patient. Patient is on antihypertensive medications however did not take his medications prior to his dialysis states that this is normal for him. Patient denies any recent travel denies fevers chills nausea vomiting diarrhea chest pain abdominal pain patient states headache frontal region there history of trauma no history of migraines. Patient states this is similar to events in the past - Related Data Allergies/Adverse Reactions: iodine [Iodine] Allergy (Severe, Verified 05/14/18 15:43) hives/skin hot niacin [Niacin] Allergy (Severe, Verified 05/14/18 15:43) flushed Penicillins Allergy (Severe, Verified 05/14/18 15:43) rash Lnevzpz-Esv-Pgg Reductase Inhibitor Allergy (Severe, Verified 05/14/18 15:43) muscle pain,elevated enzymes contrast dye Allergy (Mild, Uncoded 05/14/18 15:43) Hives Past Medical History - Social History Smoking Status: Never Smoker Chew tobacco use (# tins/day): No Frequency of alcohol use: Rare Drug Abuse: None Family History: DM, Hypertension, Other - Chronic kidney disease Patient has suicidal ideation: No Patient has homicidal ideation: No - Past Medical History Cardiac Medical History: Reports: Hx Coronary Artery Disease, Hx Hypercholesterolemia, Hx Hypertension - tx since 1997 Denies: Hx Heart Attack Pulmonary Medical History: Reports: Hx Sleep Apnea - On CPAP Denies: Hx Asthma, Hx Bronchitis, Hx COPD, Hx Pneumonia Neurological Medical History: Reports: Hx Seizures - when on dialysis pt states staff tells him has shaking. Denies: Hx Cerebrovascular Accident Endocrine Medical History: Reports: Hx Diabetes Mellitus Type 2 Renal/ Medical History: Reports: Hx End Stage Renal Disease. Denies: Hx Peritoneal Dialysis GI Medical History: Reports: Hx Gastroesophageal Reflux Disease Musculoskeltal Medical History: Reports Hx Arthritis - RA ,psoriatic, Reports Hx Gout Skin Medical History: Reports Hx Psoriasis Psychiatric Medical History: Denies: Hx Depression Past Surgical History: Reports: Hx Cardiac Catheterization - Last done in May 11, 2017, Hx Orthopedic Surgery - CARPAL TUNNEL, TRIGGER FINGER, Hx Vascular Surgery - L LOWER ARM SHUNT, Other - Hemorrhoidectomy. Denies: Hx Pacemaker - Immunizations Hx Diphtheria, Pertussis, Tetanus Vaccination: Yes Hx Pneumococcal Vaccination: 11/30/09 Review of Systems - Review of Systems Constitutional: Other - Headache hypertension EENT: No symptoms reported Cardiovascular: No symptoms reported Respiratory: No symptoms reported Gastrointestinal: No symptoms reported Genitourinary: No symptoms reported Male Genitourinary: No symptoms reported Musculoskeletal: No symptoms reported Skin: No symptoms reported Hematologic/Lymphatic: No symptoms reported Neurological/Psychological: No symptoms reported -: Yes All other systems reviewed and negative Physical Exam - Vital signs Vitals: Temp Resp BP Pulse Ox 98.0 F 14 168/80 H 98 05/18/18 12:29 05/18/18 12:29 05/18/18 12:29 05/18/18 12:29 Interpretation: Normal - General General appearance: Appears well, Alert - HEENT Head: Normocephalic, Atraumatic Eyes: Normal Pupils: PERRL - Respiratory Respiratory status: No respiratory distress Chest status: Nontender Breath sounds: Normal Chest palpation: Normal - Cardiovascular Rhythm: Regular Heart sounds: Normal auscultation Murmur: No - Abdominal Inspection: Normal Distension: No distension Bowel sounds: Normal Tenderness: Nontender Organomegaly: No organomegaly - Back Back: Normal, Nontender - Extremities General upper extremity: Normal inspection - AV fistula in the left forearm with a palpable thrill, Nontender, Normal color, Normal ROM, Normal temperature General lower extremity: Normal inspection, Nontender, Normal color, Normal ROM , Normal temperature, Normal weight bearing. No: Tessa's sign - Neurological Neuro grossly intact: Yes Cognition: Normal Orientation: AAOx4 Shanon Coma Scale Eye Opening: Spontaneous Ledbetter Coma Scale Verbal: Oriented Ledbetter Coma Scale Motor: Obeys Commands Ledbetter Coma Scale Total: 15 Speech: Normal Motor strength normal: LUE, RUE, LLE, RLE Sensory: Normal - Psychological Associated symptoms: Normal affect, Normal mood - Skin Skin Temperature: Warm Skin Moisture: Dry Skin Color: Normal Course - Re-evaluation Re-evalutation: 05/18/18 16:38 Patient was given clonidine with improvement of his blood pressure. With improvement of his blood pressure patient upon my evaluation had improvement of his symptoms. Psychiatric continues however is not as bad as it had been. Patient was given Tylenol Zofran Compazine upon reevaluation data EKG was performed patient states he is feeling much better we should be discharged home this time. Otherwise patient says there were some issues on his physical termination should follow-up with his primary care physician. - Vital Signs Vital signs: Temp Pulse Resp BP Pulse Ox 98.0 F 16 154/76 H 96 05/18/18 12:29 05/18/18 14:01 05/18/18 14:01 05/18/18 14:01 Discharge - Discharge Clinical Impression: End stage renal disease Hypertension Qualifiers: Hypertension type: unspecified Qualified Code(s): I10 - Essential (primary) hypertension Headache Qualifiers: Headache type: unspecified Headache chronicity pattern: unspecified pattern Intractability: not intractable Qualified Code(s): R51 - Headache Condition: Good Disposition: HOME, SELF-CARE Instructions: Clonidine (Catapres) ([facility]), High Blood Pressure ([facility]), Headache ( [facility]) Additional Instructions: Your EKG today and physical examination does not show any worrisome pathology. I highly recommend follow-up with your primary care physician for further evaluation of in management of your elevated blood pressure. Please take your medications as prescribed. He can take Tylenol 6 52,000 mg for your headache or he can take the Compazine Zofran as prescribed for your headache to as well. Return to ER for any concerning issues. Prescriptions: Ondansetron HCl [Zofran 4 mg Tablet] 1 - 2 tab PO Q6 #30 tablet Prochlorperazine Maleate [Compazine] 5 mg PO Q6 #30 tablet Referrals: CAILING,YULIA, MD [Primary Care Provider] - Follow up in 3-5 days
--- NOTE | 2018-05-18 22:54 | EKG REPORT ---
SEVERITY:- NORMAL ECG - SINUS RHYTHM : Confirmed by: Lennox Bello 18-May-2018 22:54:36
== END 2018-05-18 15:50 | disposition home or self-care (01) ==
LOC: ER 12:19
DX: I12.0 Hypertensive chronic kidney disease with stage 5 chronic kidney disease or end stage renal disease (principal); N18.6 End stage renal disease; R51 Headache; Z99.2 Dependence on renal dialysis; Z82.49 Family history of ischemic heart disease and other diseases of the circulatory system
CPT/HCPCS: 93005; 99284; 93010; A9270 ×3; S0119; S0183

== ENCOUNTER 2018-06-07 07:56 | Day surgery (SDC) | payer MEDICARE, OTHER ==
[2018-06-07] MEDS ORDERED: LIDOCAINE 0.5% INJ-PF (5 MG/ML) 50 ML SDV ONE (09:07)
[2018-06-07] MEDS ORDERED: HEPARIN SOD (PORCINE) 5,000 UNIT/ML 1 ML SYRINGE ONE (09:10)
[2018-06-07] MEDS ORDERED: FENTANYL CITRATE INJ/PF 100 MCG/2 ML AMPUL ONE (09:10)
[2018-06-07] MEDS ORDERED: MIDAZOLAM 2 MG/2 ML INJ ONE (09:10)
[2018-06-07 09:13] LABS: HEMATOCRIT 31.2 % (37.9-51.0); HEMOGLOBIN 10.6 g/dL (13.5-17.0); MEAN CORPUSCULAR HEMOGLOBIN 29.7 pg (27.0-33.4); MEAN CORPUSCULAR HGB CONC 33.9 g/dL (32.0-36.0); MEAN CORPUSCULAR VOLUME 87 fl (80-97); PLATELET COUNT 278 10^3/uL (150-450); RED BLOOD COUNT 3.57 10^6/uL (4.35-5.55); RED CELL DISTRIBUTION WIDTH 15.3 % (11.5-14.0)
[2018-06-07 09:27] LABS: ANION GAP 16 (5-19); BLOOD UREA NITROGEN 63 mg/dL (7-20); CALCIUM 10.1 mg/dL (8.4-10.2); CARBON DIOXIDE 28 mmol/L (22-30); CHLORIDE 101 mmol/L (98-107); GLUCOSE 140 mg/dL (75-110); POTASSIUM 5.7 mmol/L (3.6-5.0); SODIUM 144.8 mmol/L (137-145)
--- NOTE | 2018-06-07 11:18 | RADIOLOGY REPORT (SQ) ---
EXAM DESCRIPTION: FISTULAGRAM W/PLASTY COMPLETED DATE/TIME: 06/07/2018 11:09 am REASON FOR STUDY: T82.858A COMPARISON: Left upper extremity fistulogram 11/02/2017 FLUOROSCOPY TIME: 2.8 minutes 86 Images saved to PACS LIMITATIONS: None. PROCEDURE: Intra procedural imaging and fluoro during evaluation and plasty of left upper extremity dialysis access by Dr. Perea. Please see the operative note for further procedure details FINDINGS: Intra procedural imaging and fluoro during evaluation and plasty of left upper extremity d ialysis access by Dr. Perea. Please see the operative note for further procedure details IMPRESSION: Intra procedural imaging and fluoro during evaluation and plasty of left upper extremity dialysis access by Dr. Perea. Please see the operative note for further procedure details COMMENT: PQRS 6045F: Fluoroscopy time of the procedure is documented in the report. TECHNICAL DOCUMENTATION: JOB ID: [id number] [employer]- All Rights Reserved Reading location - IP/workstation name: [email or web address]
[2018-06-07] MEDS ORDERED: LISINOPRIL 5 MG TABLET PO ONE ×2 (11:45→12:00)
[2018-06-07] MEDS ORDERED: METOPROLOL TARTRATE 50 MG TABLET PO ONE ×2 (11:45→12:00)
[2018-06-07] MEDS ORDERED: CLONIDINE HCL 0.1 MG TABLET PO ONE ×2 (11:45→12:00)
--- NOTE | 2018-06-07 13:20 | Discharge Summary ---
Discharge Summary (SDC) - Discharge Final Diagnosis: #1 left forearm radiocephalic fistula malfunction. 2. End-stage renal disease on hemodialysis. 3. Coronary artery disease. 4. Hypertension. Date of Surgery: 06/07/18 Discharge Date: 06/07/18 Forms: ASU Anesthesia D/C Instruction, Discharge POC-Surgical Service Referrals: DAYA PEREA MD [ACTIVE STAFF] - 06/16/18 1:45 pm (Keep your scheduled folllow-up appointment. If you are unable to keep this appointment please call Dr. Perea office to reschedule.) Respiratory Treatments at Home: Deep Breathing/Coughing Discharge Activity: Balance Activity w/Rest Home Care Assistance: None Needed Report the Following to Your Physician Immediately: Increase in Pain, Fever over 101 Degrees, Unusual Bleeding, Redness, Swelling, Warmth, Drainage-Foul Smelling, Numbness, Tingling Sensation, IV Site Infection Signs
--- NOTE | 2018-06-07 13:34 | Operative Report ---
Operative Report DATE OF SURGERY: 06/07/18 PREOPERATIVE DIAGNOSIS: #1 left forearm radiocephalic fistula malfunction. 2. End-stage renal disease on hemodialysis. 3. Coronary artery disease. 4. Hypertension. POSTOPERATIVE DIAGNOSIS: #1 left forearm radiocephalic fistula malfunction. 2. End-stage renal disease on hemodialysis. 3. Coronary artery disease. 4. Hypertension. OPERATION: 1. Needle introduction into arteriovenous fistula left radiocephalic. 2. Multiple angioplasty and AV fistula. 3. Angiogram and interpretation. SURGEON: DAYA MENDES LAND INSPECTOR: None. ANESTHESIA: Moderate Sedation TISSUE REMOVED OR ALTERED: Not applicable. COMPLICATIONS: None. ESTIMATED BLOOD LOSS: 2 mL. INTRAOPERATIVE FINDINGS: Of a well established left forearm, radiocephalic fistula. Hyper pulsatile in the first 4 cm and difficult to feel for about 3 cm and then ectatic. Angiogram, antegrade demonstrated a 80% stenosis at about 6 cm from the anastomosis. This was completely eliminated by angioplasty. Also noted are a series of stenoses above the dilated portion at 20 cm. These extend into the basilic vein which appears to be the major outflow flow for this fistula. Almost no cephalic is noted. Also noted is numerous collateral veins in the forearm which draining the fistula. Angioplasty of the 6 cm segment appeared completely successful. Angioplasty in the fistula above the dilated portion is somewhat challenging with considerable rebound. Overall fistula function is judged to have improved with less hypersensitivity at the end of the procedure. The plan is to see of this fistula functions and quite possibly to do another angiogram in about 2-3 weeks. The object is to evaluate for possible cephalad possible central stenosis. The reason this was not done today was because the patient is potassium was 5.7 and in my judgment the initial job was to get the patient improved and back to dialysis within the next 24-48 hours. PROCEDURE: PROCEDURE: After verifying the procedure and having obtained informed consent, the patient's left arm was prepared with Chlorhexidine and draped out with sterile linen. Local anesthesia infiltrated. Percutaneous access into the fistula ,[ antegrade], obtained about [20 cm] from the arteriovenous anastomosis using a micro puncture needle followed by micro puncture wire and then a micro puncture catheter. Angiogram demonstrated the aforementioned Cephalad findings. On further reflection it was decided to do an antegrade stick in order to address the lesions close to the anastomosis and also further up the forearm. Local anesthesia infiltrated and access gained using a micropuncture needle 2 cm from the anastomosis in an antegrade direction. This was followed by a micropuncture wire, catheter and then a 0.035 Glidewire and in the 6 Icelandic short introducer. Antegrade angiogram performed. Angioplasty was elected. A 6 mm angioplasty balloon, 6 cm long was introduced and used to perform angioplasty. Angioplasty was serially done from the cephalad complete culprit lesion in the basilic or brachial just above the elbow, down to the introducer. Inflating using a 3 mils syringe for 2 minutes at a time. Completion angiogram demonstrated an acceptable result. The instrumentation was now withdrawn over hand pressure for 10 minutes. Dressings applied, procedure concluded. Exposure time: 2.8 minutes. Radiation: 7.32 Charla vicente. Contrast: 25 mL of Isovue-300, low osmolality. DICTATING PHYSICIAN: DAYA BUCK M.D. cc: DAAY BUCK M.D. ([id number]) >>
[2018-06-07 14:03] VITALS: BP 174/87
== END 2018-06-07 13:10 | disposition home or self-care (01) ==
LOC: CCL 07:56
PROVIDERS: ATTEND Surgery
DX: T82.858A Stenosis of other vascular prosthetic devices, implants and grafts, initial encounter (principal); Y83.2 Surgical operation with anastomosis, bypass or graft as the cause of abnormal reaction of the patient, or of later complication, without mention of misadventure at the time of the procedure; I12.0 Hypertensive chronic kidney disease with stage 5 chronic kidney disease or end stage renal disease; E11.22 Type 2 diabetes mellitus with diabetic chronic kidney disease; N18.6 End stage renal disease; Z99.2 Dependence on renal dialysis; I25.10 Atherosclerotic heart disease of native coronary artery without angina pectoris
CPT/HCPCS: 36415; 85027; 80048; 36902; C1725 ×2; C1752; Q9967; C1769; J2250; J1644 ×2; A9270 ×5; J3010; J3490

== ENCOUNTER 2018-08-23 06:12 | Day surgery (SDC) | payer MEDICARE, OTHER ==
[~2018-08-23 06:12] MED LIST changes: -OXYCODONE-ACETAMINOPHEN 5-325 MG TABLET PO PRN
[2018-08-23] MEDS ORDERED: OXYCODONE-ACETAMINOPHEN 5-325 MG TABLET ONE (06:44)
[2018-08-23] MEDS ORDERED: DIAZEPAM 5 MG TABLET ONE (06:44)
[2018-08-23] MEDS ORDERED: OXYCODONE-ACETAMINOPHEN 5-325 MG TABLET PO PRN (06:47)
[2018-08-23] MEDS ORDERED: LIDOCAINE 0.5% INJ-PF (5 MG/ML) 50 ML SDV ONE (07:18)
[2018-08-23 07:24] LABS: HEMATOCRIT 35.9 % (37.9-51.0); MEAN CORPUSCULAR HEMOGLOBIN 29.5 pg (27.0-33.4); MEAN CORPUSCULAR HGB CONC 33.4 g/dL (32.0-36.0); MEAN CORPUSCULAR VOLUME 88 fl (80-97); PLATELET COUNT 226 10^3/uL (150-450); RED BLOOD COUNT 4.07 10^6/uL (4.35-5.55); RED CELL DISTRIBUTION WIDTH 15.2 % (11.5-14.0); WHITE BLOOD COUNT 13.3 10^3/uL (4.0-10.5)
[2018-08-23] MEDS ORDERED: MIDAZOLAM 2 MG/2 ML INJ ONE (07:25)
[2018-08-23] MEDS ORDERED: HEPARIN SOD (PORCINE) 5,000 UNIT/ML 1 ML SYRINGE ONE (07:25)
[2018-08-23] MEDS ORDERED: FENTANYL CITRATE INJ/PF 100 MCG/2 ML AMPUL ONE (07:25)
[2018-08-23 07:34] LABS: ANION GAP 15 (5-19); BLOOD UREA NITROGEN 75 mg/dL (7-20); CALCIUM 9.9 mg/dL (8.4-10.2); CARBON DIOXIDE 24 mmol/L (22-30); CHLORIDE 102 mmol/L (98-107); GLUCOSE 140 mg/dL (75-110); POTASSIUM 5.5 mmol/L (3.6-5.0); SODIUM 140.5 mmol/L (137-145)
[2018-08-23 08:05] LABS: ABSOLUTE LYMPHOCYTES# (MANUAL) 0.5 10^3/uL (0.5-4.7); ABSOLUTE MONOCYTES # (MANUAL) 0.1 10^3/uL (0.1-1.4); ABSOLUTE NEUTROPHILS# (MANUAL) 12.6 10^3/uL (1.7-8.2); ANISOCYTOSIS SLIGHT; BASOPHILS % (MANUAL) 0 % (0-2); EOSINOPHILS % (MANUAL) 0 % (0-6); LYMPHOCYTES % (MANUAL) 4 % (13-45); MONOCYTES % (MANUAL) 1 % (3-13); POIKILOCYTOSIS SLIGHT; SEGMENTED NEUTROPHILS % (MAN) 95 % (42-78); TOTAL CELLS COUNTED 100
[2018-08-23 08:06] LABS: OVALOCYTES SLIGHT; PLATELET COMMENT ADEQUATE; TEAR DROP CELLS SLIGHT
--- NOTE | 2018-08-23 10:21 | PDOC H&P ---
General Chief Complaint: The patient is referred in for fistula evaluation and correction of malfunction. - Current Medications/Allergies Home Medications: Aspirin [Aspirin EC] 81 mg PO DAILY 11/17/17 Cholecalciferol (Vitamin D3) [Vitamin D3 5000 unit Capsule] 50,000 unit PO DAILY 11/17/17 Furosemide [Lasix 40 mg Tablet] 80 mg PO BID 11/17/17 Pantoprazole Sodium [Protonix] 40 mg PO QAM 11/17/17 Pregabalin [Lyrica 50 mg Capsule] 50 mg PO BID 05/22/18 Calcium Acetate [Phoslo 667 Mg Capsule] 4 tab PO TID 08/20/18 Clonidine HCl [Clonidine HCl ER] 0.1 mg PO Q12 08/20/18 Evolocumab [Repatha Syringe] 140 mg SQ .MONTHLY 08/20/18 Febuxostat [Uloric 80 mg Tablet] 80 mg PO DAILY 08/20/18 Losartan Potassium [Cozaar 50 mg Tablet] 50 mg PO DAILY 08/20/18 Metoprolol Succinate 50 mg PO BID 08/20/18 Allergies/Adverse Reactions: iodine [Iodine] Allergy (Severe, Verified 08/20/18 16:39) hives/skin hot niacin [Niacin] Allergy (Severe, Verified 08/20/18 16:39) flushed Penicillins Allergy (Severe, Verified 08/20/18 16:39) rash Jgsfjyl-Cte-Bls Reductase Inhibitor Allergy (Severe, Verified 08/20/18 16:39) muscle pain,elevated enzymes contrast dye Allergy (Mild, Uncoded 08/20/18 16:24) Hives Past Medical History Cardiac Medical History: Reports: Coronary Artery Disease - CARDIAC STENT, Hyperlipidema, Hypertension Denies: Myocardial Infarction Pulmonary Medical History: Reports: Sleep Apnea - On CPAP Denies: Asthma, Bronchitis, Chronic Obstructive Pulmonary Disease (COPD), Pneumonia Neurological Medical History: Reports: Seizures - SEIZURE FROM LOW BP Endocrine Medical History: Reports: Diabetes Mellitus Type 2 Renal/ Medical History: Reports: End Stage Renal Disease GI Medical History: Reports: Gastroesophageal Reflux Disease Musculoskeltal Medical History: Reports: Arthritis, Gout Skin Medical History: Reports: Psoriasis Psychiatric Medical History: Denies: Depression Hematology: Denies: Anemia Past Surgical History Past Surgical History: Reports: Cardiac Catheterization - Last done in May 11, 2017, Orthopedic Surgery - CARPAL TUNNEL, TRIGGER FINGER, Vascular Surgery - L LOWER ARM SHUNT, Other - Hemorrhoidectomy Denies: Pacemaker Family History Family History: DM, Hypertension, Other - Chronic kidney disease Parental Family History Reviewed: No Children Family History Reviewed: NA Sibling(s) Family History Reviewed.: NA Social History Smoking Status: Unknown if Ever Smoked Frequency of Alcohol Use: None Hx Recreational Drug Use: No Drugs: None Hx Prescription Drug Abuse: No Physical Exam Vital Signs: Temp Pulse Resp BP Pulse Ox 98.2 F 56 L 16 167/89 H 100 08/23/18 10:05 08/23/18 10:05 08/23/18 10:05 08/23/18 10:05 08/23/18 10:05 Intake & Output 08/22/18 08/23/18 08/24/18 06:59 06:59 06:59 Weight 107.048 kg Additional comments: Constitutional: Well-developed well-nourished -[place] gentleman my increased body mass index habitus. No apparent acute distress. Eyes: Mucous membranes pink and moist, pupils equal and reactive to light. Conjunctiva normal. Cornea normal. Wears spectacles. ENT: Hearing grossly normal. External pinna normal to inspection. Teeth intact. Tongue normal to inspection. Cardiac: Heart sounds normal. Respiratory breath sounds are present bilaterally, normal. Normal respiratory effort. Psychiatric: Judgment, memory, insight seem normal. Mood is pleasant and appropriate. Extremities: Upper extremities show normal range of movement. Pulses present noted to the radial arteries. Capillary refill normal. No cyanosis noted. No muscle wasting noted. Left forearm radiocephalic fistula in place. Suggestive of cephalad stenosis with a an interval area of stenosis. . Impression/Plan Plan: The plan is for angiogram and possible angioplasty with a goal of improving fistula function and prolonged fistula function. The risks, benefits, expected outcome and alternatives are familiar to the patient and he wishes to proceed.
--- NOTE | 2018-08-23 10:23 | Discharge Summary ---
Discharge Summary (SDC) - Discharge Final Diagnosis: #1 malfunctioning AV fistula, left radiocephalic. 2. End-stage renal disease on hemodialysis. 3. Coronary artery disease. 4. Sleep apnea. Date of Surgery: 08/23/18 Discharge Date: 08/23/18 Condition: Good Forms: Sedation D/C Instructions, Discharge POC-Surgical Service Treatment or Instructions: Return to physician as directed by MD. Discharge home [after recovery per ASU criteria]. Diet , [renal],as tolerated, when fully awake advance as tolerated. Activities within moderation encouraged. Follow up in my office by appointment in about [1 week]. Call for appointment. Leave wounds [covered], [keep clean and dry, until hemodialysis]. Hold of on school/work [until evaluation in office]. May shower [in 48 hrs], [try to keep operated area as dry as possible]. Referrals: DAYA BUCK MD [ACTIVE STAFF] - 09/01/18 1:15 pm Discharge Diet: Other (Comments) - Renal. Respiratory Treatments at Home: Deep Breathing/Coughing Discharge Activity: Activity As Tolerated Home Care Assistance: None Needed Report the Following to Your Physician Immediately: Shortness of Breath, Nausea , Vomiting, Increase in Pain, Fever over 101 Degrees, Unusual Bleeding, Redness , Swelling, Warmth, Numbness, Tingling Sensation
--- NOTE | 2018-08-23 10:33 | Operative Report ---
Operative Report DATE OF SURGERY: 08/23/18 PREOPERATIVE DIAGNOSIS: #1 malfunctioning AV fistula, left radiocephalic. 2. End-stage renal disease on hemodialysis. 3. Coronary artery disease. 4. Sleep apnea. POSTOPERATIVE DIAGNOSIS: #1 malfunctioning AV fistula, left radiocephalic. 2. End-stage renal disease on hemodialysis. 3. Coronary artery disease. 4. Sleep apnea. OPERATION: 1. Needle introduction into the fistula. 2. Angioplasty and fistula. 3. Angiogram and interpretation. SURGEON: DAYA MENDES FILM MAKER: None. ANESTHESIA: Moderate Sedation TISSUE REMOVED OR ALTERED: Not applicable. COMPLICATIONS: None. ESTIMATED BLOOD LOSS: 2 mL. INTRAOPERATIVE FINDINGS: Of a well founded left radiocephalic fistula. Bounding pulse in the first 6 cm suggestive of cephalad stenosis. Area of stenosis poorly defined from about 6 cm to about 8 cm. Estimated to be 70% adjacent. A large lateral tributary noted at about 8 cm. Multiple areas of stenoses noted from about 16 cm to about 20 cm, around the elbow. This appears to be the dominant drainage into the basilic. All of these areas addressed with very satisfactory results. Past 5% residual stenosis. The fistula to palpation post procedure was much more normal. It is clear that further work needs to be done. The draining vein needs to be ligated, ideally in the next few weeks. Any further intervention is in the vein will probably be best with a drug-eluting balloon. The object being reduction of scar formation and prolonged fistula usage. Larger balloons were used and previously. 8 mm in the elbow segment, 7 mm near the wrist. PROCEDURE: PROCEDURE: After verifying the procedure and having obtained informed consent, the patient's left arm and forearm were, prepared with Chlorhexidine and draped out with sterile linen. Local anesthesia infiltrated. Percutaneous access into the fistula ,[ antegrade], obtained about [2 cm] from the arteriovenous anastomosis using a micro puncture needle followed by micro puncture wire and then a micro puncture catheter. Angiogram demonstrated the aforementioned findings. Angioplasty was elected. A 0.035 Cleveland wire was inserted, and over this, a 6 Frisian short introducer was placed, this was followed by a [7-mm ] angioplasty balloon . Angioplasty was Done in the upper fistula and in the proximal segment near to the introducer. Inflating using a 3 mils syringe for up to 2 minutes at a time.]. Completion angiogram demonstrated residual stenosis in the areas around the elbow. An 8 mm angioplasty balloon, high-pressure was now introduced and again angioplasty done using a 3 mils syringe for up to 2 minutes at a time. Completion angiogram demonstrated [satisfactory result]. The instrumentation was now withdrawn hand pressure for 10 minutes. Dressings applied. Procedure concluded. Exposure time: 4.3 minutes. Radiation: 5.2 abby-vicente. Contrast: 25 mils of Isovue-300. DICTATING PHYSICIAN: DAYA BUCK M.D. cc: DAYA BUCK M.D. ([id number]) >>
[2018-08-23 10:45] VITALS: BP 147/85
--- NOTE | 2018-08-23 12:46 | RADIOLOGY REPORT (SQ) ---
EXAM DESCRIPTION: FISTULAGRAM W/PLASTY COMPLETED DATE/TIME: 08/23/2018 12:17 pm REASON FOR STUDY: T82.858A COMPARISON: 06/07/2018 FLUOROSCOPY TIME: 4.3 minutes 17 digital radiographic Images saved to PACS LIMITATIONS: None. PROCEDURE: Left upper extremity dialysis graft evaluation and plasty under fluoroscopy FINDINGS: Left upper extremity dialysis graft evaluation and plasty under fluoroscopy by Dr. Lucien aldana Please see is procedure note for further details IMPRESSION: Intra procedural imaging and fluoro COMMENT: PQRS [id number]: Fluoroscopy time of the procedure is documented in the report. TECHNICAL DOCUMENTATION: JOB ID: [id number] [employer]- All Rights Reserved Reading location - IP/workstation name: [email or web address]
== END 2018-08-23 10:55 | disposition home or self-care (01) ==
LOC: OROUT 06:12
PROVIDERS: ATTEND Surgery
DX: T82.858A Stenosis of other vascular prosthetic devices, implants and grafts, initial encounter (principal); Y83.2 Surgical operation with anastomosis, bypass or graft as the cause of abnormal reaction of the patient, or of later complication, without mention of misadventure at the time of the procedure; I12.0 Hypertensive chronic kidney disease with stage 5 chronic kidney disease or end stage renal disease; N18.6 End stage renal disease; Z99.2 Dependence on renal dialysis; I25.10 Atherosclerotic heart disease of native coronary artery without angina pectoris; E78.5 Hyperlipidemia, unspecified; E11.22 Type 2 diabetes mellitus with diabetic chronic kidney disease; K21.9 Gastro-esophageal reflux disease without esophagitis; M19.90 Unspecified osteoarthritis, unspecified site; G47.30 Sleep apnea, unspecified; M10.9 Gout, unspecified; E66.3 Overweight; E78.00 Pure hypercholesterolemia, unspecified; Z88.0 Allergy status to penicillin; Z91.041 Radiographic dye allergy status; Z79.82 Long term (current) use of aspirin; Z79.899 Other long term (current) drug therapy; Z68.36 Body mass index [BMI] 36.0-36.9, adult
CPT/HCPCS: 36415; 85025; 80048; 36902; C1725 ×2; C1752; C1887; C1769; J2250; J1644 ×2; A9270 ×2; J3010; J3490

== ENCOUNTER 2018-09-20 09:32 | Day surgery (SDC) | payer MEDICARE, OTHER ==
[2018-09-20 10:41] LABS: HEMATOCRIT 36.8 % (37.9-51.0); HEMOGLOBIN 12.6 g/dL (13.5-17.0); MEAN CORPUSCULAR HEMOGLOBIN 30.4 pg (27.0-33.4); MEAN CORPUSCULAR HGB CONC 34.3 g/dL (32.0-36.0); MEAN CORPUSCULAR VOLUME 89 fl (80-97); PLATELET COUNT 270 10^3/uL (150-450); RED BLOOD COUNT 4.14 10^6/uL (4.35-5.55); RED CELL DISTRIBUTION WIDTH 15.4 % (11.5-14.0); WHITE BLOOD COUNT 8.9 10^3/uL (4.0-10.5)
[2018-09-20 10:51] LABS: ANION GAP 16 (5-19); BLOOD UREA NITROGEN 48 mg/dL (7-20); CALCIUM 10.2 mg/dL (8.4-10.2); CARBON DIOXIDE 28 mmol/L (22-30); CHLORIDE 98 mmol/L (98-107); GLUCOSE 110 mg/dL (75-110); POTASSIUM 5.4 mmol/L (3.6-5.0); SODIUM 141.5 mmol/L (137-145)
[2018-09-20] MEDS ORDERED: FENTANYL CITRATE INJ/PF 100 MCG/2 ML AMPUL ONE (11:57)
[2018-09-20] MEDS ORDERED: MIDAZOLAM 2 MG/2 ML INJ ONE (11:57)
[2018-09-20] MEDS ORDERED: PROPOFOL INJ 200 MG/20 ML VIAL IV ONE (11:57)
[2018-09-20] MEDS ORDERED: ONDANSETRON HCL INJ/PF 4 MG/2 ML SDV ONE (11:57)
[2018-09-20] MEDS ORDERED: LIDOCAINE 0.5% INJ-PF (5 MG/ML) 50 ML SDV ONE (12:02)
[2018-09-20] MEDS ORDERED: BUPIVACAINE HCL 0.5 % INJ/PF 30 ML SDV ONE (12:02)
[2018-09-20] MEDS ORDERED: CLINDAMYCIN 600 MG/D5W RTU 600 MG/50 ML RTUPB IV ONE (13:04)
[2018-09-20] MEDS ORDERED: PROMETHAZINE HCL INJ 25 MG/1 ML VIAL IV PRN (13:09)
[2018-09-20] MEDS ORDERED: MEPERIDINE HCL/PF INJ 25 MG/1 ML DISP.SYRIN IV PRN (13:09)
[2018-09-20] MEDS ORDERED: FENTANYL CITRATE INJ/PF 100 MCG/2 ML AMPUL IV PRN ×2 (13:09)
[2018-09-20] MEDS ORDERED: DIPHENHYDRAMINE HCL 50 MG/ML VIAL IV PRN (13:09)
--- NOTE | 2018-09-20 14:07 | Discharge Summary ---
Discharge Summary (SDC) - Discharge Final Diagnosis: #1 malfunctioning arteriovenous fistula, left radiocephalic. 2. End-stage renal disease on hemodialysis. 3. Coronary artery disease. 4. Diabetes mellitus type 2. 5. Hypertension. Date of Surgery: 09/20/18 Discharge Date: 09/20/18 Condition: Good Treatment or Instructions: Discharge home [after recovery per ASU criteria]. Diet , [renal], diabetic,as tolerated, when fully awake advance as tolerated. Activities within moderation encouraged. Follow up in my office by appointment in about [1 week]. Call for appointment. Leave wounds [covered], [keep clean and dry, until office visit in 1 week]. Hold of on school/work [until evaluation in office]. Meds per med rec. Percocet. May shower [in 48 hrs], [try to keep operated area as dry as possible]. Prescriptions: Oxycodone HCl/Acetaminophen [Percocet 5-325 mg Tablet] 1 tab PO ASDIR PRN #15 tab PRN Reason: Referrals: IBAN SHAY [Primary Care Provider] - Discharge Diet: Other (Comments) - ADA/renal. Respiratory Treatments at Home: Deep Breathing/Coughing Discharge Activity: Activity As Tolerated Report the Following to Your Physician Immediately: Shortness of Breath, Unusual Bleeding
--- NOTE | 2018-09-20 14:11 | Operative Report ---
Operative Report DATE OF SURGERY: 09/20/18 PREOPERATIVE DIAGNOSIS: #1 malfunctioning arteriovenous fistula, left radiocephalic. 2. End-stage renal disease on hemodialysis. 3. Coronary artery disease. 4. Diabetes mellitus type 2. 5. Hypertension. POSTOPERATIVE DIAGNOSIS: #1 malfunctioning arteriovenous fistula, left radiocephalic. 2. End-stage renal disease on hemodialysis. 3. Coronary artery disease. 4. Diabetes mellitus type 2. 5. Hypertension. OPERATION: Ligation of draining branch of left radiocephalic fistula. SURGEON: DAYA MENDES WORKFORCE SPECIALIST: None. ANESTHESIA: LMAC TISSUE REMOVED OR ALTERED: Not applicable. COMPLICATIONS: None. ESTIMATED BLOOD LOSS: 5 mL. INTRAOPERATIVE FINDINGS: Of a well founded left radiocephalic fistula. A large draining vein, about 3 mm in diameter, laterally and towards the wrist. Situated in the lateral aspect of the fistula and about 4 cm from the arteriovenous anastomosis. Completely ligated with 3-0 Vicryl. Much improved palpation and flow in the main fistula thereafter. PROCEDURE: Operative Report PROCEDURE: After reviewing the procedure with the patient, he was taken to the operating room. The patient was sedated and the left upper extremity] prepared with chlorhexidine and draped out with sterile linen. After the "" universal timeout", in which it was verified that the patient [received IV antibiotics] the procedure commenced. The sterilely sheathed ultrasound probe was used to evaluate the left venous and fistula systems, pertinent to the previously done vein mapping. Local anesthesia was infiltrated and a longitudinal incision made over the lateral draining branch. At the area marked on ultrasound. This was parallel to level 2 and slightly lateral to the main fistula. Dissection proceeded through the subcutaneous tissues down to the branch. This was dissected out proximally and distally for about 1 cm. Vein was occluded and improvement in the main fistula was immediately appreciated. It was not ligated with 3 separate ties of 3-0 Vicryl. Again the main fistula remained improved. Closure was done using interrupted 3-0 PDS for the subcutaneous tissues. The skin was closed, in either wound, using a continuous subcutaneous suture of 4-0 Monocryl which was reinforced with Steri-Strips over benzoin. The procedure was concluded by applying a sterile dressing over the surgical site. DICTATING PHYSICIAN: DAYA BUCK M.D.
[2018-09-20 18:13] VITALS: BP 134/80
--- NOTE | 2018-09-21 08:36 | EKG REPORT ---
SEVERITY:- NORMAL ECG - SINUS RHYTHM : Confirmed by: Lennox Bello 21-Sep-2018 08:35:23
== END 2018-09-20 15:15 | disposition home or self-care (01) ==
LOC: OROUT 09:32
PROVIDERS: ATTEND Surgery
DX: T82.858A Stenosis of other vascular prosthetic devices, implants and grafts, initial encounter (principal); Y83.2 Surgical operation with anastomosis, bypass or graft as the cause of abnormal reaction of the patient, or of later complication, without mention of misadventure at the time of the procedure; I12.0 Hypertensive chronic kidney disease with stage 5 chronic kidney disease or end stage renal disease; N18.6 End stage renal disease; Z99.2 Dependence on renal dialysis; E11.22 Type 2 diabetes mellitus with diabetic chronic kidney disease; I25.10 Atherosclerotic heart disease of native coronary artery without angina pectoris; M19.90 Unspecified osteoarthritis, unspecified site; E66.3 Overweight; E78.00 Pure hypercholesterolemia, unspecified; K21.9 Gastro-esophageal reflux disease without esophagitis; M10.9 Gout, unspecified; I20.9 Angina pectoris, unspecified; I49.9 Cardiac arrhythmia, unspecified; D64.9 Anemia, unspecified; G40.909 Epilepsy, unspecified, not intractable, without status epilepticus; R06.02 Shortness of breath; Z79.899 Other long term (current) drug therapy; Z79.82 Long term (current) use of aspirin; Z68.36 Body mass index [BMI] 36.0-36.9, adult; Z88.0 Allergy status to penicillin; Z88.8 Allergy status to other drugs, medicaments and biological substances; Z98.890 Other specified postprocedural states; Z91.041 Radiographic dye allergy status
CPT/HCPCS: 36415; 85027; 80048; 93005; 93010; 36821; J2250; J3490 ×2; J3010; J2405; J2704; 1844

== ENCOUNTER → 2018-10-06 | Outpatient (CLI) | payer MEDICARE, OTHER ==
--- NOTE | 2018-10-08 08:47 | XCELERA REPORT ---
[address] [address] Lower Extremity Arterial Evaluation Name: RHYS BUCK Age: 68 yrs Gender: Male : 1950 Patient Status: Outpatient Patient Location: Study Date: 10/06/2018 02:20 PM Procedure: A color flow and duplex scan of the lower extremity arteries was performed bilaterally with velocity and waveform anaylsis. Ankle brachial indicies performed. Reason For Study: CLAUDICATION Ordering Physician: DAYA BUCK Performed By: Jacob Wang Measurements and Calculations Right Left RESOURCE ANALYST PSV 128.3 138.3 cm/sec Prox PFA PSV -116.3 -77.1 cm/sec Prox Pop A PSV 84.4 93.0 cm/sec Dist ADELFO PSV 109.2 90.8 cm/sec Dist RN LICENSED PRACTICAL PSV 109.7 104.1 cm/sec Amandeep Pedis PSV -94.3 -69.1 cm/sec Right Side Arterial Evaluation Normal velocity and triphasic waveforms noted from the Common Femoral artery to the infrageniculate vessels. 0 % stenosis noted. Ankle Brachial index is 1.23. Left Side Arterial Evaluation Normal velocity and triphasic waveforms noted from the Common Femoral artery to the infrageniculate vessels. 0 % stenosis noted. Ankle Brachial index is 1.26. Interpretation Summary No hemodynamically significant lesions in the bilateral lower extremities, on duplex imaging, at rest. Ankle Brachial indices are normal, suggesting no significant arterial compromise. : DAYA BUCK > Daya uBck
== END ==
LOC: SP 13:52
PROVIDERS: ATTEND Surgery
DX: I73.9 Peripheral vascular disease, unspecified (principal)
CPT/HCPCS: 93925

== ENCOUNTER 2018-11-10 22:16 | Emergency (ER) | payer MEDICARE, OTHER ==
[2018-11-11] MEDS ORDERED: TRANEXAMIC ACID INJ/PF 1,000 MG/10 ML SDV IV ONE (00:20)
--- NOTE | 2018-11-11 00:26 | ER Document Report ---
ED Wound - General Chief Complaint: Laceration Stated Complaint: LACERATION ON TONGUE/BLEEDING Time Seen by Provider: 11/11/18 00:18 Notes: Patient is a 68-year-old male that comes to the [facility] department for chief complaint of bleeding from the tongue. He states he is not even sure why he has a cut on his tongue, this happened after dinner, he ate lasagna. He states that he has been bleeding heavily and will not stop and after a few hours he came in because of this. He is on aspirin, no other blood thinners. He denies any other symptoms, denies dizziness, denies pain. TRAVEL OUTSIDE OF THE [place] IN LAST 30 DAYS: No - Related Data Allergies/Adverse Reactions: iodine [Iodine] Allergy (Severe, Verified 08/20/18 16:39) hives/skin hot niacin [Niacin] Allergy (Severe, Verified 08/20/18 16:39) flushed Penicillins Allergy (Severe, Verified 08/20/18 16:39) rash Zcolntz-Kok-Iui Reductase Inhibitor Allergy (Severe, Verified 08/20/18 16:39) muscle pain,elevated enzymes contrast dye Allergy (Mild, Uncoded 08/20/18 16:24) Hives Past Medical History - General Information source: Patient - Social History Smoking Status: Never Smoker Frequency of alcohol use: None Drug Abuse: None Lives with: Family Family History: DM, Hypertension, Other - Chronic kidney disease - Past Medical History Cardiac Medical History: Reports: Hx Coronary Artery Disease - CARDIAC STENT, Hx Hypercholesterolemia, Hx Hypertension Denies: Hx Heart Attack Pulmonary Medical History: Reports: Hx Sleep Apnea - On CPAP Denies: Hx Asthma, Hx Bronchitis, Hx COPD, Hx Pneumonia Neurological Medical History: Reports: Hx Seizures - SEIZURE FROM LOW BP. Denies: Hx Cerebrovascular Accident Endocrine Medical History: Reports: Hx Diabetes Mellitus Type 2 Renal/ Medical History: Reports: Hx End Stage Renal Disease. Denies: Hx Peritoneal Dialysis GI Medical History: Reports: Hx Gastroesophageal Reflux Disease Musculoskeletal Medical History: Reports Hx Arthritis, Reports Hx Gout Skin Medical History: Reports Hx Psoriasis Psychiatric Medical History: Denies: Hx Depression Past Surgical History: Reports: Hx Cardiac Catheterization - Last done in May 11, 2017, Hx Orthopedic Surgery - CARPAL TUNNEL, TRIGGER FINGER, Hx Vascular Surgery - L LOWER ARM SHUNT, Other - Hemorrhoidectomy. Denies: Hx Pacemaker - Immunizations Hx Diphtheria, Pertussis, Tetanus Vaccination: Yes Hx Pneumococcal Vaccination: 11/30/09 Review of Systems - Review of Systems Constitutional: No symptoms reported EENT: See HPI Cardiovascular: No symptoms reported Respiratory: No symptoms reported Gastrointestinal: No symptoms reported Genitourinary: No symptoms reported Male Genitourinary: No symptoms reported Musculoskeletal: No symptoms reported Skin: No symptoms reported Hematologic/Lymphatic: No symptoms reported Neurological/Psychological: No symptoms reported Physical Exam - Vital signs Vitals: Pulse Resp BP Pulse Ox 75 19 173/75 H 96 11/10/18 22:26 11/10/18 22:26 11/10/18 22:26 11/10/18 22:26 - Notes Notes: GENERAL: Alert, interacts well. No acute distress. HEAD: Normocephalic, atraumatic. EYES: Pupils equal, round, and reactive to light. Extraocular movements intact. ENT: Oral mucosa moist, tongue midline. There is a small linear superficial laceration over the mid tongue on the right side with persistent bleeding noted. No swelling of the tongue. Oropharynx unremarkable. Airway patent. Nares patent, no nasal septal hematoma, TM's intact. NECK: Full range of motion. Supple. Trachea midline. LUNGS: Clear to auscultation bilaterally, no wheezes, rales, or rhonchi. No respiratory distress. HEART: Regular rate and rhythm. No murmur ABDOMEN: Soft, non-tender. Non-distended. Bowel sounds present in all 4 quadrants. GENITOURINARY: Deferred EXTREMITIES: Moves all 4 extremities spontaneously. No edema, normal radial and dorsalis pedis pulses bilaterally. No cyanosis. BACK: no cervical, thoracic, lumbar midline tenderness. No saddle anesthesia, normal distal neurovascular exam. NEUROLOGICAL: Alert and oriented x3. Normal speech. [cranial nerves II through XII grossly intact]. PSYCH: Normal affect, normal mood. SKIN: Warm, dry, normal turgor. No rashes or lesions noted. Course - Re-evaluation Re-evalutation: Patient has been having persistent bleeding from the laceration on his tongue for several hours now. I discussed the different options, patient desiring intervention. After discussion decided to avoid suturing if possible, small amount of TXA was placed on a 2 x 2 and then placed over the tongue, patient held this in place for 10 minutes. Afterwards this was removed, patient found to have stopped bleeding. I reevaluated patient 15 minutes, he still has not had any recurrence of bleeding. Patient is very satisfied with this. No additional recommendations at this time. Discussed follow-up and return precautions with patient in detail. Patient states satisfaction and agreement with plan. - Vital Signs Vital signs: Temp Pulse Resp BP Pulse Ox 97.2 F 64 16 138/70 H 96 11/11/18 01:13 11/11/18 01:13 11/11/18 01:13 11/11/18 01:13 11/11/18 01:13 Discharge - Discharge Clinical Impression: Tongue laceration Qualifiers: Encounter type: initial encounter Qualified Code(s): S01.512A - Laceration without foreign body of oral cavity, initial encounter Condition: Stable Disposition: HOME, SELF-CARE Additional Instructions: The bleeding has been stopped at this time. Do not take your aspirin today. Use caution when eating today. This should heal very quickly. If rebleeding happens you can try things such as compression or ice to help stop the bleeding, if bleeding is heavy and persistent please return to the emergency department for additional management. Return for any other concerning symptoms. Referrals: DAYA BUCK MD [Primary Care Provider] - Follow up as needed
[2018-11-11 01:21] VITALS: BP 138/70
== END 2018-11-11 01:25 | disposition home or self-care (01) ==
LOC: ER 22:16
DX: S01.512A Laceration without foreign body of oral cavity, initial encounter (principal); W45.8XXA Other foreign body or object entering through skin, initial encounter; I25.10 Atherosclerotic heart disease of native coronary artery without angina pectoris; I10 Essential (primary) hypertension; E11.9 Type 2 diabetes mellitus without complications
CPT/HCPCS: 99282; J3490

== ENCOUNTER → 2019-08-22 | Outpatient (CLI) | payer MEDICARE, OTHER ==
--- NOTE | 2019-08-22 08:37 | RADIOLOGY REPORT (SQ) ---
EXAM DESCRIPTION: CT HEAD WITHOUT COMPLETED DATE/TIME: 08/22/2019 7:40 am REASON FOR STUDY: HEADACHE AND WEAKNESS (R53.1, G44.52) R51 HEADACHE R53.1 WEAKNESS COMPARISON: None. TECHNIQUE: Axial images acquired through the brain without intravenous contrast. Images reviewed wi th bone, brain and subdural windows. Additional sagittal and coronal reconstructions were generated. Images stored on PACS. All CT scanners at this facility use dose modulation, iterative reconstruction, and/or weight based d osing when appropriate to reduce radiation dose to as low as reasonably achievable (ALARA). [facility]: Dose Right [facility]: CareDose [facility]: Dose Right [facility]: Teradose 4D [facility]: [employer] RADIATION DOSE: CT Rad equipment meets quality standard of care and radiation dose reduction techniq ues were employed. CTDIvol: 48.7 mGy. DLP: 980 mGy-cm. mGy. LIMITATIONS: None. FINDINGS: VENTRICLES: Prominent. CEREBRUM: No masses. No hemorrhage. No midline shift. Areas of low density in the white matter mos t likely due to chronic micro-vascular ischemic change. No evidence for acute infarction. CEREBELLUM: No masses. No hemorrhage. No alteration of density. No evidence for acute infarction. EXTRAAXIAL SPACES: Mild age-related involutional change. No fluid collections. No masses. ORBITS AND GLOBE: No intra- or extraconal masses. Normal contour of globe without masses. CALVARIUM: No fracture. PARANASAL SINUSES: No fluid or mucosal thickening. SOFT TISSUES: No mass or hematoma. OTHER: No other significant finding. IMPRESSION: MILD CHRONIC CHANGES OF ATROPHY AND MICROVASCULAR ISCHEMIA. NO ACUTE PROCESS. EVIDENCE OF ACUTE STROKE: NO. TECHNICAL DOCUMENTATION: JOB ID: [id number] Quality ID # [id number]: Final reports with documentation of one or more dose reduction techniques (e.g., Au tomated exposure control, adjustment of the mA and/or kV according to patient size, use of iterative reconstruction technique) 2010 [email or web address]- All Rights Reserved Reading location - IP/workstation name: [email or web address]
== END ==
LOC: RAD 07:08
PROVIDERS: ATTEND Physician Assistant Medical
DX: G44.52 New daily persistent headache (NDPH) (principal); R53.1 Weakness
CPT/HCPCS: 70450

== ENCOUNTER 2020-02-17 15:42 | Emergency (ER) | payer OTHER, MEDICARE ==
[2020-02-17 16:32] LABS: ABSOLUTE BASOPHILS # (AUTO) 0.1 10^3/uL (0.0-0.2); ABSOLUTE EOSINOPHILS # (AUTO) 0.2 10^3/uL (0.0-0.6); ABSOLUTE LYMPHOCYTES (AUTO) 0.6 10^3/uL (0.5-4.7); ABSOLUTE MONOCYTES (AUTO) 0.6 10^3/uL (0.1-1.4); ABSOLUTE NEUT (AUTO) 5.7 10^3/uL (1.7-8.2); BASOPHILS % (AUTO) 1.2 % (0-2); EOSINOPHILS % (AUTO) 2.5 % (0-6); HEMATOCRIT 35.9 % (37.9-51.0); LYMPHOCYTES % (AUTO) 8.2 % (13-45); MEAN CORPUSCULAR HEMOGLOBIN 31.9 pg (27.0-33.4); MEAN CORPUSCULAR HGB CONC 33.3 g/dL (32.0-36.0); MEAN CORPUSCULAR VOLUME 96 fl (80-97); MONOCYTES % (AUTO) 7.9 % (3-13); PLATELET COUNT 173 10^3/uL (150-450); RED BLOOD COUNT 3.74 10^6/uL (4.35-5.55); RED CELL DISTRIBUTION WIDTH 15.6 % (11.5-14.0); SEGMENTED NEUTROPHILS % (AUTO) 80.2 % (42-78); TOTAL CELLS COUNTED % (AUTO) 100 %; WHITE BLOOD COUNT 7.1 10^3/uL (4.0-10.5)
[2020-02-17 16:35] LABS: ALBUMIN 3.4 g/dL (3.5-5.0); ALKALINE PHOSPHATASE 69 U/L (38-126); ANION GAP 13 (5-19); ASPARTATE AMINO TRANSFERASE 20 U/L (17-59); BILIRUBIN,DIRECT 0.4 mg/dL (0.0-0.4); BILIRUBIN,TOTAL 0.5 mg/dL (0.2-1.3); BLOOD UREA NITROGEN 30 mg/dL (7-20); CALCIUM 7.2 mg/dL (8.4-10.2); CARBON DIOXIDE 23 mmol/L (22-30); CHLORIDE 104 mmol/L (98-107); CREATINE KINASE 344 U/L (55-170); GLUCOSE 88 mg/dL (75-110); POTASSIUM 3.8 mmol/L (3.6-5.0); TOTAL PROTEIN 6.2 g/dL (6.3-8.2)
--- NOTE | 2020-02-17 16:38 | RADIOLOGY REPORT (SQ) ---
EXAM DESCRIPTION: CHEST SINGLE VIEW COMPLETED DATE/TIME: 02/17/2020 4:17 pm REASON FOR STUDY: cp COMPARISON: PA and lateral views of the chest from 05/14/2018. EXAM PARAMETERS: NUMBER OF VIEWS: One view. TECHNIQUE: An AP view of the chest was obtained. RADIATION DOSE: NA LIMITATIONS: None. FINDINGS: LUNGS AND PLEURA: No consolidation, pleural effusion or pneumothorax. MEDIASTINUM AND HILAR STRUCTURES: No mediastinal or hilar contour abnormality. HEART AND VASCULAR STRUCTURES: The cardiac silhouette and pulmonary vasculature are within normal nettles its. BONES: No acute findings. HARDWARE: None in the chest. OTHER: No other finding. IMPRESSION: No acute cardiopulmonary process. TECHNICAL DOCUMENTATION: JOB ID: [id number] 2010 [employer]- All Rights Reserved Reading location - IP/workstation name: [email or web address]
[2020-02-17 16:46] LABS: CREATINE KINASE MB 2.68 ng/mL (<4.55); TROPONIN I 0.027 ng/mL
--- NOTE | 2020-02-17 17:26 | ER Document Report ---
ED General - General Chief Complaint: Shortness Of Breath Stated Complaint: DIZZINESS/SHORTNESS OF BREATH Time Seen by Provider: 02/17/20 15:58 Primary Care Provider: YULIA BRUCE MD [Primary Care Provider] - Follow up as needed TRAVEL OUTSIDE OF THE [place] IN LAST 30 DAYS: No - HPI Notes: Patient is a 69-year-old male who presents emergency department for evaluation. He states he is here because of shortness of breath. He started becoming short of breath last night when he was trying to go to sleep. He had some difficulty sleeping. He states he had some nasal congestion on the left side. He always sleeps in a semi-upright position. He states that he started feeling slightly lightheaded and dizzy after realizing he was short of breath. He admits there may be some aspect of anxiety at this time. He states his breathing has improved since arrival. He went to dialysis yesterday, actually had them take a little extra weight off. He states he was a half a kilo above his dry weight, he had them remove 1 kg. He denies any chest pain or chest tightness. He has not been coughing. No fevers. He has not had any changes in his medications over the last several weeks. - Related Data Allergies/Adverse Reactions: iodine [Iodine] Allergy (Severe, Verified 08/20/18 16:39) hives/skin hot niacin [Niacin] Allergy (Severe, Verified 08/20/18 16:39) flushed Penicillins Allergy (Severe, Verified 08/20/18 16:39) rash Vlfrndm-Len-Ewc Reductase Inhibitor Allergy (Severe, Verified 08/20/18 16:39) muscle pain,elevated enzymes contrast dye Allergy (Mild, Uncoded 08/20/18 16:24) Hives Home Medications: In ROom. Past Medical History - General Information source: Patient - Social History Smoking Status: Never Smoker Family History: DM, Hypertension, Other - Chronic kidney disease Patient has suicidal ideation: No Patient has homicidal ideation: No - Past Medical History Cardiac Medical History: Reports: Hx Coronary Artery Disease - CARDIAC STENT, Hx Hypercholesterolemia, Hx Hypertension Denies: Hx Heart Attack Pulmonary Medical History: Reports: Hx Sleep Apnea - On CPAP Denies: Hx Asthma, Hx Bronchitis, Hx COPD, Hx Pneumonia Neurological Medical History: Reports: Hx Seizures - SEIZURE FROM LOW BP. Denies: Hx Cerebrovascular Accident Endocrine Medical History: Reports: Hx Diabetes Mellitus Type 2 Renal/ Medical History: Reports: Hx End Stage Renal Disease, Hx Hemodialysis - Thursday. Denies: Hx Peritoneal Dialysis GI Medical History: Reports: Hx Gastroesophageal Reflux Disease Musculoskeletal Medical History: Reports Hx Arthritis, Reports Hx Gout Skin Medical History: Reports Hx Psoriasis Psychiatric Medical History: Denies: Hx Depression Past Surgical History: Reports: Hx Cardiac Catheterization - Last done in May 11, 2017, Hx Orthopedic Surgery - CARPAL TUNNEL, TRIGGER FINGER, Hx Vascular Surgery - L LOWER ARM SHUNT, Other - Hemorrhoidectomy. Denies: Hx Pacemaker - Immunizations Hx Diphtheria, Pertussis, Tetanus Vaccination: Yes Hx Pneumococcal Vaccination: 11/30/09 Review of Systems - Review of Systems EENT: See HPI Respiratory: See HPI -: Yes All other systems reviewed and negative Physical Exam - Vital signs Vitals: Resp BP Pulse Ox 14 173/94 H 97 02/17/20 15:55 02/17/20 15:55 02/17/20 15:55 - Notes Notes: This is a very pleasant 69-year-old male who appears stated age in no acute distress. Vital signs reviewed, please refer to chart. Head is normocephalic, atraumatic. Pupils equal round, reactive to light. Neck is supple without meningismus. Heart is regular rate and rhythm. Lungs are clear to auscultation bilaterally. AV fistula in the left forearm with palpable thrill. Abdomen is soft, nontender, normoactive bowel sounds throughout. Extremities without cyano sis, clubbing. Posterior calves are nontender. 1+ pitting edema to the ankles bilaterally. Peripheral pulses are equal. Skin is warm and dry. Patient is awake, alert, neurological exam is nonfocal. Course - Re-evaluation Re-evalutation: 02/17/20 17:37 Patient presents emerge department for evaluation of shortness of breath. The patient is oxygenating between 95 and 97% on room air. He is mildly hypertensive, but does have a history of significant hypertension. His chest x- ray fails to reveal any signs of fluid overload. His labs are largely unremarkable for a patient with end-stage renal disease. Patient is in no acute distress, breathing 16 times a minute. At this point, I do believe nasal congestion could have contributed somewhat to his dyspnea. He has Flonase at home, he is encouraged to try that. He is told that he should not be trying [id number] medications for nasal congestion as these may increase his blood pressure. He voiced understanding to this. He is to follow-up with primary care, and go to dialysis as scheduled tomorrow. Return to the ED with worsening or new concerning symptoms of any sort. - Vital Signs Vital signs: Temp Pulse Resp BP Pulse Ox 97.9 F 73 11 L 164/79 H 97 02/17/20 16:10 02/17/20 16:10 02/17/20 17:01 02/17/20 17:01 02/17/20 17:01 - Laboratory Result Diagrams: 02/17/20 16:02 02/17/20 16:02 Laboratory results interpreted by me: 02/17/20 02/17/20 16:02 16:02 RBC 3.74 L Hgb 12.0 L Hct 35.9 L RDW 15.6 H Lymph % (Auto) 8.2 L Seg Neutrophils % 80.2 H BUN 30 H Creatinine 9.01 H Est GFR ( Amer) 7 L Est GFR (MDRD) Non-Af 6 L Calcium 7.2 L Creatine Kinase 344 H Total Protein 6.2 L Albumin 3.4 L - Diagnostic Test Radiology reviewed: Reports reviewed Radiology results interpreted by me: 02/17/20 17:38 Chest X-Ray 02/17/20 15:58 IMPRESSION: No acute cardiopulmonary process. - EKG Interpretation by Me Additional EKG results interpreted by me: 02/17/20 17:38 Sinus mechanism with a rate of 71 bpm. Normal axis and intervals. No acute ST changes concerning for ischemia or infarction. Discharge - Discharge Clinical Impression: Nasal congestion, Dizziness Dyspnea Qualifiers: Dyspnea type: shortness of breath Qualified Code(s): R06.02 - Shortness of breath; R06.00 - Dyspnea, unspecified; R06.01 - Orthopnea Condition: Stable Disposition: HOME, SELF-CARE Instructions: Dizziness ([facility]), Dyspnea, Nonspecific ([facility]) Additional Instructions: Consider Flonase as discussed. Follow-up with your regular dialysis appointment tomorrow. Follow-up with your primary care provider next week. Return to the emergency department with worsening or new concerning symptoms of any sort. Referrals: YULIA BRUCE MD [Primary Care Provider] - Follow up as needed
--- NOTE | 2020-02-17 18:29 | EKG REPORT ---
SEVERITY:- NORMAL ECG - SINUS RHYTHM : Confirmed by: Lety Osman MD 17-Feb-2020 18:27:58
[2020-02-17 18:30] VITALS: BP 174/83
== END 2020-02-17 18:30 | disposition home or self-care (01) ==
LOC: ER 15:42
DX: R09.81 Nasal congestion (principal); R42 Dizziness and giddiness; R06.01 Orthopnea; R06.02 Shortness of breath; E78.00 Pure hypercholesterolemia, unspecified; E11.22 Type 2 diabetes mellitus with diabetic chronic kidney disease; I12.0 Hypertensive chronic kidney disease with stage 5 chronic kidney disease or end stage renal disease; N18.6 End stage renal disease; Z99.2 Dependence on renal dialysis; Z88.0 Allergy status to penicillin; Z91.041 Radiographic dye allergy status
CPT/HCPCS: 36415; 71045; 80053; 82550; 82553; 84484; 85025; 93005; 93010; 99284